=== PATIENT | male | born 1965 | race Caucasian/White ===

== ENCOUNTER 2016-04-24 10:04 | Emergency (ER) | payer BC ==
--- NOTE | 2016-04-24 11:34 | EDDOCDS ---
Physician Documentation [facility] Name: Kishore Mello Age: 51 yrs Sex: Male : 1965 Arrival Date: 04/24/2016 Time: 10:04 Bed TR7 Private MD: Génesis Medeiros Disposition: 04/24/16 11:10 Discharged to Home/Self Care. Impression: Gout - affecting left medial malleolus. - Condition is Stable. - Discharge Instructions: Gout. - Prescriptions for Naprosyn 500 mg Oral Tablet - take 1 tablet by ORAL route every 12 hours As needed take with food; 30 tablet. [place] 5- 325 mg Oral Tablet - take 1 tablet by ORAL route every 6 hours As needed MDD: 4 tabs; may cause drowsiness. do not take if working/driving/operating machinery; 15 tablet. Allopurinol 100 mg Oral Tablet - take 1 tablet by ORAL route once daily start when current symptoms resolve; 30 tablet. - Medication Reconciliation, Local Pharmacy Hours form. - Follow up: Emergency Department; When: As needed; Reason: Worsening of conditions. Follow up: Private Physician; When: 2 - 3 days; Reason: Wound/Symptom Recheck, Recheck today's complaints, Continuance of care. - Problem is new. - Symptoms are unchanged. Historical: - Allergies: no known allergies; - Home Meds: 1. gabapentin 300 mg Oral cap daily 2. spironolactone 25 mg Oral tab 1 tab once daily (Last dose: 04/22/2016) 3. valsartan 160 mg oral tab 1 tab nightly (Last dose: 04/22/2016) 4. verapamil 40 mg Oral tab nightly (Last dose: 04/24/2016) 5. hydrochlorothiazide 50 mg Oral tab 1 tab once daily (Last dose: 04/24/2016) - PMHx: Gout; Hypertension; Kidney stones; pericarditis; [place]; neuropathy; - PSHx: Knee surgery- Left; Knee surgery- Right; cardiac catheterization; Lithotripsy; - Social history: Smoking status: Patient states former smoker of tobacco. No barriers to communication noted, The patient speaks fluent Albanian. - Family history: Not pertinent. - : The pt / caregiver states he / she is not on anticoagulants. Home medication list is obtained from the patient. - Exposure Risk Screening:: None identified. Vital Signs: 04/24 10:06 BP 215 / 124 RA Sitting (auto/lg); Pulse 88; Resp 20 S; Temp 97.5(O); Pulse Ox 99% on elp R/A; Weight 147.42 kg / 325.01 lbs (R); Height 5 ft. 9 in. (175.26 cm) (R); Pain 9; 10:28 BP 178 / 110 LA Sitting (man/reg); jjr 11:22 BP 184 / 110 LA Sitting (man/lg); Pulse 84; Resp 18; Temp 97.2(O); Pulse Ox 98% on R/A; ct3 Pain 910; 10:06 Body Mass Index 47.99 (147.42 kg, 175.26 cm) elp MDM: 10:17 Recheck B/P ordered. dt4 10:23 Financial registration complete. lg 10:28 [facility] Payment Agreement was scanned into [employer] and attached to record. lg 10:36 US Lower Extremity R/O DVT Ordered. EDMS Signatures: Dispatcher [employer] EDMS Isamar Taylor, Reg Reg lg Kandis Rivas, RN RN Parvin Madrigal RN RN hs1 Beverley Rodriguez PA-C PA-C dt4 The chart was reviewed and I authenticate all verbal orders and agree with the evaluation and treatment provided.Attachments: 10:28 [facility] Payment Agreement lg MTDD
--- NOTE | 2016-04-24 11:34 | EDDOCDS ---
Nurse's Notes [facility] Name: Kishore Mello Age: 51 yrs Sex: Male : 1965 Arrival Date: 04/24/2016 Time: 10:04 Bed TR7 Private MD: Génesis Medeiros Diagnosis: Gout-affecting left medial malleolus Presentation: 04/24 10:09 Presenting complaint: Patient states: "gout flare up" pain to top of left foot began jjr this past Tuesday then went away until this morning. Adult Sepsis Screening: The patient does not have new or worsening altered mentation. Patient's respiratory rate is less than 22. Systolic blood pressure is greater than 100. Patient has a qSOFA score of 0- Negative Sepsis Screen. Suicide/Homicide risk assessment- the patient denies having any suicidal and/or homicidal ideations and does not present with any other emotional, behavioral or mental health complaints. Status: Patient is not a legal services manager or dependent. Transition of care: patient was not received from another setting of care. 10:09 Acuity: SHAMEKA Level 5 jjr 10:09 Method Of Arrival: Walkin/Carried/Asstd jjr Triage Assessment: 10:13 General: Appears in no apparent distress, obese, Behavior is appropriate for age. Pain: jjr Location: dorsum of left foot. HIV screening NA for this visit Offered previously. Musculoskeletal: Reports pain in dorsum of left foot. Historical: - Allergies: no known allergies; - Home Meds: 1. gabapentin 300 mg Oral cap daily 2. spironolactone 25 mg Oral tab 1 tab once daily (Last dose: 04/22/2016) 3. valsartan 160 mg oral tab 1 tab nightly (Last dose: 04/22/2016) 4. verapamil 40 mg Oral tab nightly (Last dose: 04/24/2016) 5. hydrochlorothiazide 50 mg Oral tab 1 tab once daily (Last dose: 04/24/2016) - PMHx: Gout; Hypertension; Kidney stones; pericarditis; [place]; neuropathy; - PSHx: Knee surgery- Left; Knee surgery- Right; cardiac catheterization; Lithotripsy; - Social history: Smoking status: Patient states former smoker of tobacco. No barriers to communication noted, The patient speaks fluent Cymro. - Family history: Not pertinent. - : The pt / caregiver states he / she is not on anticoagulants. Home medication list is obtained from the patient. - Exposure Risk Screening:: None identified. Screenin:39 Screening information is obtained from the patient. Fall risk: No risks identified. jjr Assistance ADL's: requires no assistance with activities of daily living. Abuse/DV Screen: The patient / caregiver reports he/she is: not in a situation that causes fear, pain or injury. Nutritional screening: No deficits noted. Advance Directives: There is no active DNR order. home support is adequate. Assessment: 10:38 General: Appears in no apparent distress, obese, well nourished, well groomed, Behavior jjr is appropriate for age. Derm: redness to top of left foot. Musculoskeletal: Capillary refill < 3 seconds in left toes. 11:32 Reassessment: Patient appears in no apparent distress at this time. Pain: Location: hs1 left foot Pain currently is 8 out of 10 on a pain scale. Vital Signs: 10:06 BP 215 / 124 RA Sitting (auto/lg); Pulse 88; Resp 20 S; Temp 97.5(O); Pulse Ox 99% on elp R/A; Weight 147.42 kg (R); Height 5 ft. 9 in. (175.26 cm) (R); Pain 9/10; 10:28 BP 178 / 110 LA Sitting (man/reg); jjr 11:22 BP 184 / 110 LA Sitting (man/lg); Pulse 84; Resp 18; Temp 97.2(O); Pulse Ox 98% on R/A; ct3 Pain 9/10; 10:06 Body Mass Index 47.99 (147.42 kg, 175.26 cm) [facility] Vitals: 10:06 Log In Time: April 24, 2016 at 10:04. [facility] ED Course: 10:05 Patient visited by Yue Lowry PCA. elp 10:05 Génesis Medeiros is Private Physician. elp 10:05 Patient moved to Waiting elp 10:08 Patient visited by Yue Lowry PCA. elp 10:08 Patient moved to Pre RCE elp 10:10 Triage Initiated jjr 10:13 Patient moved to Triage 1 jjr 10:16 Beverley [facility] dt4 10:16 Indigo Melissa MD is Attending Physician. dt4 10:16 Patient visited by Beverley Rodriguez PA-C. dt4 10:28 [facility] Payment Agreement was scanned into [employer] and attached to record. lg 10:37 Patient moved to TR1 hs1 10:39 The patient / caregiver is instructed regarding the plan of care and ED course. jjr 10:40 Patient moved to Ultrasound en 10:55 Patient moved to TR1 en 11:09 Patient visited by Stephanie Vasquez PCA. ct3 11:11 Patient moved to PR2 / 26 ct3 11:22 Patient visited by Stephanie Vasquez PCA. ct3 11:26 Patient moved to TR7 ct3 11:32 No IV's were initiated during this patient's visit. No procedures done that require hs1 assistance. Order Results: There are currently no results for this order. Outcome: 11:10 Discharge ordered by Provider. dt4 11:32 Discharge Assessment: Patient awake, alert and oriented x 3. No cognitive and/or hs1 functional deficits noted. Patient verbalized understanding of disposition instructions. patient administered narcotics - no. The following High Risk Discharge criteria are identified: None. Discharged to home ambulatory. Condition: stable. Discharge instructions given to patient, Instructed on discharge instructions, follow up and referral plans. medication usage, Demonstrated understanding of instructions, medications, Pt was receptive of discharge instructions/ teaching. Prescriptions given X 2. Ultrasound Study completed. Property sent home with patient. 11:33 Patient left the ED. hs1 Signatures: Isamar Taylor, Jan Reg lg Kandis Rivas, BEE RN Parvin Madrigal RN RN hs1 Stephanie Vasquez, SALES DIRECTOR SALES DIRECTOR ct3 Yue Lowry, SALES DIRECTOR SALES DIRECTOR elp Beverley Rodriguez PA-C PA-C dt4 [facility] mejias en MTDD
--- NOTE | 2016-04-26 08:30 | REP ---
Left lower extremity deep vein duplex ultrasound: The deep veins demonstrate normal compression, normal Doppler color flow and normal Doppler waveforms with respiration augmentation from the popliteal vein to the common femoral vein. Impression: Negative study. No deep vein thrombus. Signed by Daniel Harrison MD 04/24/2016 11:09 A
--- NOTE | 2016-04-26 12:34 | EDDOCDS ---
Nurse's Notes [facility] Name: Kishore Mello Age: 51 yrs Sex: Male : 1965 Arrival Date: 04/24/2016 Time: 10:04 Bed TR7 Private MD: Génesis Medeiros Diagnosis: Gout-affecting left medial malleolus Presentation: 04/24 10:09 Presenting complaint: Patient states: "gout flare up" pain to top of left foot began jjr this past Tuesday then went away until this morning. Adult Sepsis Screening: The patient does not have new or worsening altered mentation. Patient's respiratory rate is less than 22. Systolic blood pressure is greater than 100. Patient has a qSOFA score of 0- Negative Sepsis Screen. Suicide/Homicide risk assessment- the patient denies having any suicidal and/or homicidal ideations and does not present with any other emotional, behavioral or mental health complaints. Status: Patient is not a service desk specialist or dependent. Transition of care: patient was not received from another setting of care. 10:09 Acuity: SHAMEKA Level 5 jjr 10:09 Method Of Arrival: Walkin/Carried/Asstd jjr Triage Assessment: 10:13 General: Appears in no apparent distress, obese, Behavior is appropriate for age. Pain: jjr Location: dorsum of left foot. HIV screening NA for this visit Offered previously. Musculoskeletal: Reports pain in dorsum of left foot. Historical: - Allergies: no known allergies; - Home Meds: 1. gabapentin 300 mg Oral cap daily 2. spironolactone 25 mg Oral tab 1 tab once daily (Last dose: 04/22/2016) 3. valsartan 160 mg oral tab 1 tab nightly (Last dose: 04/22/2016) 4. verapamil 40 mg Oral tab nightly (Last dose: 04/24/2016) 5. hydrochlorothiazide 50 mg Oral tab 1 tab once daily (Last dose: 04/24/2016) - PMHx: Gout; Hypertension; Kidney stones; pericarditis; [place]; neuropathy; - PSHx: Knee surgery- Left; Knee surgery- Right; cardiac catheterization; Lithotripsy; - Social history: Smoking status: Patient states former smoker of tobacco. No barriers to communication noted, The patient speaks fluent Bahraini. - Family history: Not pertinent. - : The pt / caregiver states he / she is not on anticoagulants. Home medication list is obtained from the patient. - Exposure Risk Screening:: None identified. Screenin:39 Screening information is obtained from the patient. Fall risk: No risks identified. jjr Assistance ADL's: requires no assistance with activities of daily living. Abuse/DV Screen: The patient / caregiver reports he/she is: not in a situation that causes fear, pain or injury. Nutritional screening: No deficits noted. Advance Directives: There is no active DNR order. home support is adequate. Assessment: 10:38 General: Appears in no apparent distress, obese, well nourished, well groomed, Behavior jjr is appropriate for age. Derm: redness to top of left foot. Musculoskeletal: Capillary refill < 3 seconds in left toes. 11:32 Reassessment: Patient appears in no apparent distress at this time. Pain: Location: hs1 left foot Pain currently is 8 out of 10 on a pain scale. Vital Signs: 10:06 BP 215 / 124 RA Sitting (auto/lg); Pulse 88; Resp 20 S; Temp 97.5(O); Pulse Ox 99% on elp R/A; Weight 147.42 kg (R); Height 5 ft. 9 in. (175.26 cm) (R); Pain 9/10; 10:28 BP 178 / 110 LA Sitting (man/reg); jjr 11:22 BP 184 / 110 LA Sitting (man/lg); Pulse 84; Resp 18; Temp 97.2(O); Pulse Ox 98% on R/A; ct3 Pain 9/10; 10:06 Body Mass Index 47.99 (147.42 kg, 175.26 cm) [facility] Vitals: 10:06 Log In Time: April 24, 2016 at 10:04. [facility] ED Course: 10:05 Patient visited by Yue Lowry PCA. elp 10:05 Génesis Medeiros is Private Physician. elp 10:05 Patient moved to Waiting elp 10:08 Patient visited by Yue Lowry PCA. elp 10:08 Patient moved to Pre RCE elp 10:10 Triage Initiated jjr 10:13 Patient moved to Triage 1 jjr 10:16 Beverley Rodriguez PA-C is PHCP. dt4 10:16 Indigo Melissa MD is Attending Physician. dt4 10:16 Patient visited by Beverley Rodriguez PA-C. dt4 10:28 [facility] Payment Agreement was scanned into [employer] and attached to record. lg 10:37 Patient moved to TR1 hs1 10:39 The patient / caregiver is instructed regarding the plan of care and ED course. jjr 10:40 Patient moved to Ultrasound en 10:55 Patient moved to TR1 en 11:09 Patient visited by Stephanie Vasquez PCA. ct3 11:11 Patient moved to PR2 / 26 ct3 11:22 Patient visited by Stephanie Vasquez PCA. ct3 11:26 Patient moved to TR7 ct3 11:32 No IV's were initiated during this patient's visit. No procedures done that require hs1 assistance. 12:52 T-Sheet-- Draft Copy was scanned into [employer] and attached to record. [facility] 04/26 08:50 US Lower Extremity R/O DVT Returned. [facility] Order Results: Radiology Order: US Lower Extremity R/O DVT Test: US Lower Extremity R/O DVT REASON FOR EXAMINATION: left calf pain; Left lower extremity deep vein duplex ultrasound:; ; The deep veins demonstrate normal compression, normal Doppler color flow and; normal Doppler waveforms with respiration augmentation from the popliteal vein to; the common femoral vein.; ; Impression:; ; Negative study. No deep vein thrombus.; ; ; Signed by; Daniel Harrison MD 04/24/2016 11:09 A; Outcome: 04/24 11:10 Discharge ordered by Provider. dt4 11:32 Discharge Assessment: Patient awake, alert and oriented x 3. No cognitive and/or hs1 functional deficits noted. Patient verbalized understanding of disposition instructions. patient administered narcotics - no. The following High Risk Discharge criteria are identified: None. Discharged to home ambulatory. Condition: stable. Discharge instructions given to patient, Instructed on discharge instructions, follow up and referral plans. medication usage, Demonstrated understanding of instructions, medications, Pt was receptive of discharge instructions/ teaching. Prescriptions given X 2. Ultrasound Study completed. Property sent home with patient. 11:33 Patient left the ED. hs1 Signatures: [facility] Isamar Taylor, Kandis Chamberlain lg, RN RN jjr Parvin Taylor, RN RN hs1 Pedro, Stephanie, HYDROTHERAPIST HYDROTHERAPIST ct3 Yue Lowry, HYDROTHERAPIST HYDROTHERAPIST elp Beverley Rodriguez, JACOBO CENTENO dt4 Maria R Baca, Dena khanna Chart Complete MTDD
--- NOTE | 2016-04-26 12:34 | EDDOCDS ---
Physician Documentation [facility] Name: Kishore Mello Age: 51 yrs Sex: Male : 1965 Arrival Date: 04/24/2016 Time: 10:04 Bed TR7 Private MD: Génesis Medeiros Disposition: 04/24/16 11:10 Discharged to Home/Self Care. Impression: Gout - affecting left medial malleolus. - Condition is Stable. - Discharge Instructions: Gout. - Prescriptions for Naprosyn 500 mg Oral Tablet - take 1 tablet by ORAL route every 12 hours As needed take with food; 30 tablet. [place] 5- 325 mg Oral Tablet - take 1 tablet by ORAL route every 6 hours As needed MDD: 4 tabs; may cause drowsiness. do not take if working/driving/operating machinery; 15 tablet. Allopurinol 100 mg Oral Tablet - take 1 tablet by ORAL route once daily start when current symptoms resolve; 30 tablet. - Medication Reconciliation, Local Pharmacy Hours form. - Follow up: Emergency Department; When: As needed; Reason: Worsening of conditions. Follow up: Private Physician; When: 2 - 3 days; Reason: Wound/Symptom Recheck, Recheck today's complaints, Continuance of care. - Problem is new. - Symptoms are unchanged. Historical: - Allergies: no known allergies; - Home Meds: 1. gabapentin 300 mg Oral cap daily 2. spironolactone 25 mg Oral tab 1 tab once daily (Last dose: 04/22/2016) 3. valsartan 160 mg oral tab 1 tab nightly (Last dose: 04/22/2016) 4. verapamil 40 mg Oral tab nightly (Last dose: 04/24/2016) 5. hydrochlorothiazide 50 mg Oral tab 1 tab once daily (Last dose: 04/24/2016) - PMHx: Gout; Hypertension; Kidney stones; pericarditis; [place]; neuropathy; - PSHx: Knee surgery- Left; Knee surgery- Right; cardiac catheterization; Lithotripsy; - Social history: Smoking status: Patient states former smoker of tobacco. No barriers to communication noted, The patient speaks fluent Tajik. - Family history: Not pertinent. - : The pt / caregiver states he / she is not on anticoagulants. Home medication list is obtained from the patient. - Exposure Risk Screening:: None identified. Vital Signs: 04/24 10:06 BP 215 / 124 RA Sitting (auto/lg); Pulse 88; Resp 20 S; Temp 97.5(O); Pulse Ox 99% on elp R/A; Weight 147.42 kg / 325.01 lbs (R); Height 5 ft. 9 in. (175.26 cm) (R); Pain 910; 10:28 BP 178 / 110 LA Sitting (man/reg); jjr 11:22 BP 184 / 110 LA Sitting (man/lg); Pulse 84; Resp 18; Temp 97.2(O); Pulse Ox 98% on R/A; ct3 Pain 9/10; 10:06 Body Mass Index 47.99 (147.42 kg, 175.26 cm) elp MDM: 10:17 Recheck B/P ordered. dt4 10:23 Financial registration complete. lg 10:28 [facility] Payment Agreement was scanned into [employer] and attached to record. lg 10:36 Lower Extremity R/O DVT Ordered. EDMS 12:52 T-Sheet-- Draft Copy was scanned into [employer] and attached to record. se Signatures: Dispatcher [employer] EDMS Isamar Taylor, Reg Reg lg Kandis Rivas RN Parvin Seals RN RN hs1 Beverley Rodriguez PA-C PA-C dt4 Dena Stoll The chart was reviewed and I authenticate all verbal orders and agree with the evaluation and treatment provided.Attachments: 10:28 [facility] Payment Agreement lg 12:52 T-Sheet-- Draft Copy se Chart Complete MTDD
--- NOTE | 2016-04-26 12:34 | EDDOCDS ---
Physician Documentation [facility] Name: Kishore Mello Age: 51 yrs Sex: Male : 1965 Arrival Date: 04/24/2016 Time: 10:04 Bed TR7 Private MD: Génesis Medeiros Disposition: 04/24/16 11:10 Discharged to Home/Self Care. Impression: Gout - affecting left medial malleolus. - Condition is Stable. - Discharge Instructions: Gout. - Prescriptions for Naprosyn 500 mg Oral Tablet - take 1 tablet by ORAL route every 12 hours As needed take with food; 30 tablet. [place] 5- 325 mg Oral Tablet - take 1 tablet by ORAL route every 6 hours As needed MDD: 4 tabs; may cause drowsiness. do not take if working/driving/operating machinery; 15 tablet. Allopurinol 100 mg Oral Tablet - take 1 tablet by ORAL route once daily start when current symptoms resolve; 30 tablet. - Medication Reconciliation, Local Pharmacy Hours form. - Follow up: Emergency Department; When: As needed; Reason: Worsening of conditions. Follow up: Private Physician; When: 2 - 3 days; Reason: Wound/Symptom Recheck, Recheck today's complaints, Continuance of care. - Problem is new. - Symptoms are unchanged. Historical: - Allergies: no known allergies; - Home Meds: 1. gabapentin 300 mg Oral cap daily 2. spironolactone 25 mg Oral tab 1 tab once daily (Last dose: 04/22/2016) 3. valsartan 160 mg oral tab 1 tab nightly (Last dose: 04/22/2016) 4. verapamil 40 mg Oral tab nightly (Last dose: 04/24/2016) 5. hydrochlorothiazide 50 mg Oral tab 1 tab once daily (Last dose: 04/24/2016) - PMHx: Gout; Hypertension; Kidney stones; pericarditis; [place]; neuropathy; - PSHx: Knee surgery- Left; Knee surgery- Right; cardiac catheterization; Lithotripsy; - Social history: Smoking status: Patient states former smoker of tobacco. No barriers to communication noted, The patient speaks fluent Vietnamese. - Family history: Not pertinent. - : The pt / caregiver states he / she is not on anticoagulants. Home medication list is obtained from the patient. - Exposure Risk Screening:: None identified. Vital Signs: 04/24 10:06 BP 215 / 124 RA Sitting (auto/lg); Pulse 88; Resp 20 S; Temp 97.5(O); Pulse Ox 99% on elp R/A; Weight 147.42 kg / 325.01 lbs (R); Height 5 ft. 9 in. (175.26 cm) (R); Pain 910; 10:28 BP 178 / 110 LA Sitting (man/reg); jjr 11:22 BP 184 / 110 LA Sitting (man/lg); Pulse 84; Resp 18; Temp 97.2(O); Pulse Ox 98% on R/A; ct3 Pain 9/10; 10:06 Body Mass Index 47.99 (147.42 kg, 175.26 cm) elp MDM: 10:17 Recheck B/P ordered. dt4 10:23 Financial registration complete. lg 10:28 [facility] Payment Agreement was scanned into [email or web address] and attached to record. lg 10:36 Lower Extremity R/O DVT Ordered. EDMS 12:52 T-Sheet-- Draft Copy was scanned into [email or web address] and attached to record. se Signatures: Dispatcher [employer] EDMS Isamar Taylor, Reg Reg lg Kandis Rivas RN Parvin Seals RN RN hs1 Beverley Rodriguez PA-C PA-C dt4 Dena Stoll The chart was reviewed and I authenticate all verbal orders and agree with the evaluation and treatment provided.Attachments: 10:28 [facility] Payment Agreement lg 12:52 T-Sheet-- Draft Copy se Chart Complete MTDD
== END 2016-04-24 11:33 | disposition home or self-care (01) ==
LOC: M ED 10:04
DX: M10.072 Idiopathic gout, left ankle and foot (principal); I10 Essential (primary) hypertension; I25.2 Old myocardial infarction; G62.9 Polyneuropathy, unspecified; Z87.442 Personal history of urinary calculi; Z87.891 Personal history of nicotine dependence; Z79.899 Other long term (current) drug therapy

== ENCOUNTER → 2016-10-20 | Outpatient (REF) | payer BC ==
[2016-10-20 16:03] LABS: BASO % 0.6 % (0.0-1.0); EOS # 0.2 K/mm3 (0.0-0.50); EOS % 3.5 % (0.0-3.0); LARGE UNSTAINED CELL # 0.1 K/mm3 (0.0-0.4); LARGE UNSTAINED CELL % 1.2 % (0.0-4.0); LYMPH # 1.4 K/mm3 (1.5-4.5); LYMPH % 19.8 % (24.0-44.0); MEAN CORPUSCULAR HGB CONC 33.5 g/dl (32.0-36.5); MEAN CORPUSCULAR VOLUME 86.7 fl (80.0-96.0); MONO # 0.4 K/mm3 (0.0-0.8); MONO % 6.2 % (0.0-5.0); NEUTROPHILS # 4.7 K/mm3 (1.8-7.7); NEUTROPHILS % 68.8 % (36.0-66.0); PLATELET COUNT, AUTOMATED 191 k/mm3 (150-450); RED CELL DISTRIBUTION WIDTH 14.3 % (11.5-14.5); WHITE BLOOD COUNT 6.8 K/mm3 (4.0-10.0)
[2016-10-20 16:14] LABS: ALBUMIN 3.7 GM/DL (3.2-5.2); ALBUMIN/GLOBULIN RATIO 1.03 (1.00-1.93); ALKALINE PHOSPHATASE 74 U/L (45-117); ALT/SGPT 40 U/L (12-78); ANION GAP 9 MEQ/L (8-16); AST/SGOT 18 U/L (15-37); BILIRUBIN,TOTAL 0.5 MG/DL (0.2-1.0); BLOOD UREA NITROGEN 25 MG/DL (7-18); CALCIUM LEVEL 9.2 MG/DL (8.5-10.1); CARBON DIOXIDE LEVEL 28 MEQ/L (21-32); CHLORIDE LEVEL 97 MEQ/L (98-107); CHOLESTEROL LEVEL 261 MG/DL (<200); CREATININE FOR GFR 1.16 MG/DL (0.70-1.30); GLOMERULAR FILTRATION RATE > 60.0 (>56); GLUCOSE, FASTING 143 MG/DL (70-105); POTASSIUM SERUM 4.3 MEQ/L (3.5-5.1); SODIUM LEVEL 134 MEQ/L (136-145); TOTAL PROTEIN 7.3 GM/DL (6.4-8.2); TRIGLYCERIDES LEVEL 83 MG/DL (<150)
== END ==
LOC: M SFHCSACK 09:08
PROVIDERS: ATTEND Physician Assistant
DX: I10 Essential (primary) hypertension (principal); Z11.59 Encounter for screening for other viral diseases; Z11.4 Encounter for screening for human immunodeficiency virus [HIV]; Z13.220 Encounter for screening for lipoid disorders

== ENCOUNTER → 2016-12-09 | Outpatient (CLI) | payer BC ==
[2016-12-09 13:45] LABS: ALBUMIN 3.7 GM/DL (3.2-5.2); ALBUMIN/GLOBULIN RATIO 1.06 (1.00-1.93); ALKALINE PHOSPHATASE 65 U/L (45-117); ALT/SGPT 37 U/L (12-78); ANION GAP 9 MEQ/L (8-16); AST/SGOT 17 U/L (15-37); BILIRUBIN,TOTAL 0.5 MG/DL (0.2-1.0); BLOOD UREA NITROGEN 28 MG/DL (7-18); CALCIUM LEVEL 9.4 MG/DL (8.5-10.1); CARBON DIOXIDE LEVEL 29 MEQ/L (21-32); CHLORIDE LEVEL 102 MEQ/L (98-107); CREATININE FOR GFR 1.33 MG/DL (0.70-1.30); FREE T4 1.11 NG/DL (0.76-1.46); GLOMERULAR FILTRATION RATE > 60.0 (>56); GLUCOSE, FASTING 128 MG/DL (70-105); POTASSIUM SERUM 4.5 MEQ/L (3.5-5.1); SODIUM LEVEL 140 MEQ/L (136-145); TOTAL PROTEIN 7.2 GM/DL (6.4-8.2)
== END ==
LOC: M WUC 09:22
PROVIDERS: ATTEND Physician Assistant
DX: R73.09 Other abnormal glucose (principal); E66.9 Obesity, unspecified

== ENCOUNTER 2017-09-22 08:20 | Inpatient (IN) | payer BC ==
[2017-09-22 08:49] LABS: BASO % 0.5 % (0.0-1.0); EOS # 0.2 10^3/uL (0.0-0.50); HEMOGLOBIN 15.1 g/dl (13.5-17.5); IMMATURE GRANULOCYTE % 0.7 % (0-3.0); LYMPH # 1.3 10^3/uL (1.5-4.5); LYMPH % 17.8 % (24.0-44.0); MEAN CORPUSCULAR HEMOGLOBIN 28.3 pg (27.0-33.0); MEAN CORPUSCULAR HGB CONC 33.6 g/dl (32.0-36.5); MEAN CORPUSCULAR VOLUME 84.4 fl (80.0-96.0); MONO # 0.5 10^3/uL (0.0-0.8); MONO % 6.6 % (0.0-5.0); NEUTROPHILS # 5.3 10^3/uL (1.8-7.7); NEUTROPHILS % 71.4 % (36.0-66.0); PLATELET COUNT, AUTOMATED 194 10^3/uL (150-450); RED BLOOD COUNT 5.33 10^6/uL (4.30-6.10); WHITE BLOOD COUNT 7.4 10^3/uL (4.0-10.0)
[2017-09-22] MEDS: ASPIRIN 81 MG CHEW TABLET PO (08:53)
[2017-09-22] MEDS: NITROGLYCERIN 0.4 MG SUBL TABLET SL ×3 (08:54→09:09)
[2017-09-22 09:03] LABS: INR 0.92; PARTIAL THROMBOPLASTIN TIME 26.9 SECONDS (25.4-37.6); PROTHROMBIN TIME 12.5 SECONDS (12.1-14.4)
[2017-09-22 09:13] LABS: ALBUMIN 3.4 GM/DL (3.2-5.2); ALBUMIN/GLOBULIN RATIO 0.83 (1.00-1.93); ALKALINE PHOSPHATASE 73 U/L (45-117); ALT/SGPT 43 U/L (12-78); ANION GAP 5 MEQ/L (8-16); AST/SGOT 23 U/L (7-37); BILIRUBIN,DIRECT 0.1 MG/DL (0.0-0.2); BILIRUBIN,TOTAL 0.3 MG/DL (0.2-1.0); BLOOD UREA NITROGEN 26 MG/DL (7-18); CALCIUM LEVEL 8.6 MG/DL (8.5-10.1); CARBON DIOXIDE LEVEL 31 MEQ/L (21-32); CHLORIDE LEVEL 106 MEQ/L (98-107); CPK CREATINE PHOSPHOKINASE 90 U/L (39-308); CREATININE FOR GFR 1.18 MG/DL (0.70-1.30); FREE T4 1.08 NG/DL (0.76-1.46); GLOMERULAR FILTRATION RATE > 60.0 (>56); GLUCOSE, FASTING 164 MG/DL (70-100); POTASSIUM SERUM 4.6 MEQ/L (3.5-5.1); SODIUM LEVEL 142 MEQ/L (136-145); TOTAL PROTEIN 7.5 GM/DL (6.4-8.2); TROPONIN I 0.05 NG/ML (< 0.10)
[2017-09-22 09:19] LABS: CK-MB VALUE MASS 2.9 NG/ML (<3.6); MB/CK RELATIVE INDEX 3.22 (< OR =4); NT-PRO BNP 403 PG/ML (<125)
[2017-09-22] MEDS: LABETALOL HCL 100 MG/20 ML VIAL IV (09:39)
[2017-09-22] MEDS: hydrALAZINE INJ 20 MG/ML VIAL IV (11:04)
[2017-09-22] MEDS: METOPROLOL SUCC *XL* 25MG TAB (TopROL *XL*) PO (11:04)
[2017-09-22] MEDS ORDERED: SLF 3 ML SYR IV (13:15)
[2017-09-22 13:22] LABS: CK-MB VALUE MASS 2.9 NG/ML (<3.6); CPK CREATINE PHOSPHOKINASE 71 U/L (39-308); MB/CK RELATIVE INDEX 4.08 (< OR =4); TROPONIN I 0.04 NG/ML (< 0.10)
[2017-09-22] MEDS: FUROSEMIDE 20 MG TAB PO (13:35)
[2017-09-22] MEDS: SLF 3 ML SYR IV ×2 (13:38→22:00)
[2017-09-22] MEDS ORDERED: chlordiazePOXIDE 25 MG CAP PO (15:00)
[2017-09-22] MEDS: VERAPAMIL 120 MG SR TAB PO (15:08)
[2017-09-22] MEDS: VALSARTAN 80 MG TAB (DIOVAN) PO (15:09)
[2017-09-22] MEDS: SPIRONOLACTONE 25 MG TAB PO (15:09)
[2017-09-22] MEDS: HEPARIN SOD (PORCINE) 5000 UNITS/ML VIAL SQ ×2 (15:10→22:00)
[2017-09-22] MEDS: CHLORTHALIDONE 25 MG TAB PO (16:59)
[2017-09-22] MEDS: ACETAMINOPHEN TAB 650MG DOSE (2X325MG) PO (18:40)
[2017-09-22 19:22] LABS: CK-MB VALUE MASS 2.7 NG/ML (<3.6); CPK CREATINE PHOSPHOKINASE 91 U/L (39-308); MB/CK RELATIVE INDEX 2.96 (< OR =4); TROPONIN I 0.04 NG/ML (< 0.10)
[2017-09-23] MEDS: SLF 3 ML SYR IV (06:00)
[2017-09-23] MEDS: HEPARIN SOD (PORCINE) 5000 UNITS/ML VIAL SQ (06:00)
[2017-09-23 06:39] LABS: HEMATOCRIT 46.3 % (42.0-52.0); HEMOGLOBIN 15.2 g/dl (13.5-17.5); MEAN CORPUSCULAR HEMOGLOBIN 27.8 pg (27.0-33.0); MEAN CORPUSCULAR HGB CONC 32.8 g/dl (32.0-36.5); MEAN CORPUSCULAR VOLUME 84.6 fl (80.0-96.0); PLATELET COUNT, AUTOMATED 200 10^3/uL (150-450); RED BLOOD COUNT 5.47 10^6/uL (4.30-6.10); RED CELL DISTRIBUTION WIDTH 14.4 % (11.5-14.5); WHITE BLOOD COUNT 7.4 10^3/uL (4.0-10.0)
[2017-09-23 06:59] LABS: ANION GAP 9 MEQ/L (8-16); BLOOD UREA NITROGEN 20 MG/DL (7-18); CARBON DIOXIDE LEVEL 28 MEQ/L (21-32); CHLORIDE LEVEL 103 MEQ/L (98-107); CREATININE FOR GFR 1.16 MG/DL (0.70-1.30); GLOMERULAR FILTRATION RATE > 60.0 (>56); GLUCOSE, FASTING 156 MG/DL (70-100); POTASSIUM SERUM 4.2 MEQ/L (3.5-5.1); SODIUM LEVEL 140 MEQ/L (136-145)
[2017-09-23] MEDS: FUROSEMIDE 20 MG TAB PO (08:50)
== END 2017-09-23 13:50 | disposition home or self-care (01) | DRG 199 ==
LOC: M ED 08:20 → M ED INP 11:16 → M PCU 13:05
DX: I16.0 Hypertensive urgency (principal); Z68.43 Body mass index [BMI] 50.0-59.9, adult; E66.01 Morbid (severe) obesity due to excess calories; R07.9 Chest pain, unspecified; G47.33 Obstructive sleep apnea (adult) (pediatric); F17.210 Nicotine dependence, cigarettes, uncomplicated; Z79.899 Other long term (current) drug therapy; Z88.5 Allergy status to narcotic agent; I10 Essential (primary) hypertension

== ENCOUNTER 2017-10-18 01:55 | Emergency (ER) | payer BC ==
[2017-10-18] MEDS: ONDANSETRON 4 MG ORAL DISINTEGRATING TAB (Q0162 PER 1MG) PO (02:30)
[2017-10-18 02:51] LABS: KETONE, URINE AUTO RFX NEGATIVE (NEGATIVE); LEUKOCYTE ESTERASE UR AUTO RFX NEGATIVE (NEGATIVE); MUCUS, URINE RFX SMALL (NEGATIVE); NITRITE, URINE AUTO RFX NEGATIVE (NEGATIVE); RBC, URINE AUTO RFX 72 /HPF (0-3); SPECIFIC GRAVITY UR AUTO RFX 1.018 (1.002-1.035); SQUAM EPITHELIAL CELL UR AURFX 0 /HPF (0-6); WBC, URINE AUTO RFX 2 /HPF (0-3)
[2017-10-18] MEDS: NORCO 5/325MG TABLET (BULK FOR ED) PO (05:21)
== END 2017-10-18 05:22 | disposition home or self-care (01) ==
LOC: M ED 01:55
DX: N20.1 Calculus of ureter (principal); I10 Essential (primary) hypertension; E66.9 Obesity, unspecified; Z87.442 Personal history of urinary calculi; Z79.899 Other long term (current) drug therapy; Z88.5 Allergy status to narcotic agent
CPT/HCPCS: Q0162

== ENCOUNTER → 2018-01-11 | Outpatient (REF) | payer BC ==
[2018-01-11 15:00] LABS: ESTIMATED AVERAGE GLUCOSE 192 MG/DL (60-110); HEMOGLOBIN A1c 8.3 %
[2018-01-11 15:01] LABS: BASO % 0.4 % (0.0-1.0); EOS # 0.2 10^3/uL (0.0-0.50); EOS % 2.1 % (0.0-3.0); HEMATOCRIT 47.6 % (42.0-52.0); HEMOGLOBIN 15.8 g/dl (13.5-17.5); IMMATURE GRANULOCYTE % 0.2 % (0-3.0); LYMPH # 1.6 10^3/uL (1.5-4.5); LYMPH % 19.4 % (24.0-44.0); MEAN CORPUSCULAR HEMOGLOBIN 27.8 pg (27.0-33.0); MEAN CORPUSCULAR HGB CONC 33.2 g/dl (32.0-36.5); MEAN CORPUSCULAR VOLUME 83.8 fl (80.0-96.0); MONO # 0.6 10^3/uL (0.0-0.8); MONO % 7.1 % (0.0-5.0); NEUTROPHILS # 5.7 10^3/uL (1.8-7.7); NEUTROPHILS % 70.8 % (36.0-66.0); PLATELET COUNT, AUTOMATED 233 10^3/uL (150-450); RED BLOOD COUNT 5.68 10^6/uL (4.30-6.10); RED CELL DISTRIBUTION WIDTH 14.5 % (11.5-14.5)
[2018-01-11 15:28] LABS: MAU/CREAT RATIO 28.8 MCG/MG (0.0-30.0)
[2018-01-11 16:22] LABS: ALBUMIN 3.4 GM/DL (3.2-5.2); ALBUMIN/GLOBULIN RATIO 0.92 (1.00-1.93); ALKALINE PHOSPHATASE 84 U/L (45-117); ALT/SGPT 39 U/L (12-78); ANION GAP 7 MEQ/L (8-16); AST/SGOT 19 U/L (7-37); BILIRUBIN,TOTAL 0.4 MG/DL (0.2-1.0); BLOOD UREA NITROGEN 32 MG/DL (7-18); CALCIUM LEVEL 8.8 MG/DL (8.5-10.1); CARBON DIOXIDE LEVEL 30 MEQ/L (21-32); CHLORIDE LEVEL 101 MEQ/L (98-107); CHOLESTEROL LEVEL 242 MG/DL (<200); CHOLESTEROL RISK RATIO 5.041 (<5); CREATININE FOR GFR 1.26 MG/DL (0.70-1.30); FREE T4 1.07 NG/DL (0.76-1.46); GLOMERULAR FILTRATION RATE > 60.0 (>56); GLUCOSE, FASTING 198 MG/DL (70-100); HDL CHOLESTEROL 48 MG/DL (>40); LDL CHOLESTEROL 176 MG/DL (<100); NON-HDL-C 194 MG/DL; POTASSIUM SERUM 5.2 MEQ/L (3.5-5.1); SODIUM LEVEL 138 MEQ/L (136-145); THYROID STIMULATING HORMONE 0.884 uIU/ML (0.358-3.740); TOTAL PROTEIN 7.1 GM/DL (6.4-8.2); TRIGLYCERIDES LEVEL 89 MG/DL (<150)
[2018-01-11 16:23] LABS: TOTAL 25(OH) VITAMIN D 19.6 NG/ML (30.0-100.0)
== END ==
LOC: M SFHCSACK 09:04
DX: R73.09 Other abnormal glucose (principal); I10 Essential (primary) hypertension; F41.9 Anxiety disorder, unspecified; E55.9 Vitamin D deficiency, unspecified
CPT/HCPCS: 84443

== ENCOUNTER → 2018-08-25 | Outpatient (REF) | payer OTHER ==
[~2018-08-25] MED LIST: CHLO125TA PO; CHLO50TA PO; FLOM0.4C39 PO; FURO20TA2 PO; HYDR-3715 PO; SPIR-10 PO; VALS1TAB68 PO; VERA120T4 PO; ZOFR4TAB14 PO
[2018-08-25 16:03] LABS: BASO % 0.5 % (0.0-1.0); EOS # 0.1 10^3/uL (0.0-0.50); EOS % 1.2 % (0.0-3.0); HEMATOCRIT 47.5 % (42.0-52.0); HEMOGLOBIN 15.3 g/dl (13.5-17.5); LYMPH # 1.4 10^3/uL (1.5-4.5); LYMPH % 21.2 % (24.0-44.0); MEAN CORPUSCULAR HGB CONC 32.2 g/dl (32.0-36.5); MEAN CORPUSCULAR VOLUME 83.9 fl (80.0-96.0); MONO # 0.5 10^3/uL (0.0-0.8); NEUTROPHILS # 4.6 10^3/uL (1.8-7.7); NEUTROPHILS % 69.5 % (36.0-66.0); PLATELET COUNT, AUTOMATED 205 10^3/uL (150-450); RED BLOOD COUNT 5.66 10^6/uL (4.30-6.10); WHITE BLOOD COUNT 6.6 10^3/uL (4.0-10.0)
[2018-08-25 16:16] LABS: HEMOGLOBIN A1c 7.4 %
[2018-08-25 17:43] LABS: ALBUMIN 3.7 GM/DL (3.2-5.2); ALT/SGPT 40 U/L (12-78); BILIRUBIN,TOTAL 0.4 MG/DL (0.2-1.0); BLOOD UREA NITROGEN 30 MG/DL (7-18); CALCIUM LEVEL 9.5 MG/DL (8.5-10.1); CARBON DIOXIDE LEVEL 26 MEQ/L (21-32); CHLORIDE LEVEL 102 MEQ/L (98-107); CREATININE FOR GFR 1.18 MG/DL (0.70-1.30); GLOMERULAR FILTRATION RATE > 60.0 (>56); GLUCOSE, FASTING 157 MG/DL (70-100); POTASSIUM SERUM 4.9 MEQ/L (3.5-5.1); SODIUM LEVEL 136 MEQ/L (136-145); TOTAL 25(OH) VITAMIN D 30.1 NG/ML (30.0-100.0); TOTAL PROTEIN 7.4 GM/DL (6.4-8.2)
== END ==
LOC: M SFHCSACK 10:24
PROVIDERS: ATTEND Physician Assistant
DX: I10 Essential (primary) hypertension (principal); E11.9 Type 2 diabetes mellitus without complications; E55.9 Vitamin D deficiency, unspecified

== ENCOUNTER 2018-10-16 15:28 | Emergency (ER) | payer OTHER ==
[~2018-10-16] VITALS: Ht 175.3 cm; Wt 146.2 kg
[2018-10-16] MEDS ORDERED: VITA500045 (15:38)
[2018-10-16] MEDS ORDERED: ALLO100T (15:38)
[2018-10-16] MEDS ORDERED: METO1TAB87 (15:38)
[2018-10-16] MEDS ORDERED: JANU100T (15:38)
[2018-10-16] MEDS ORDERED: CHLO50TA (15:38)
[2018-10-16] MEDS ORDERED: SIMV20TA2 (15:38)
--- NOTE | 2018-10-16 16:12 | REP ---
Left knee five views: There are no comparisons. There is tricompartment osteoarthritis. There is a suprapatellar effusion. There is no fracture or dislocation. Mineralization is normal. There are no calcifications or foreign bodies. Impression: Tricompartment osteoarthritis and joint effusion Electronically Signed by Daniel Harrison MD 10/16/2018 04:03 P
[2018-10-16] MEDS ORDERED: IBUPROFEN 600 MG TAB PO ONE (20:00)
[2018-10-16] MEDS ORDERED: LIDOCAINE 5% (LIDODERM) PATCH TD ONE (20:00)
[2018-10-16] MEDS ORDERED: ROBA500T PO (20:44)
[2018-10-16 20:52] VITALS: BP 145/78
--- NOTE | 2018-10-17 03:05 | REP ---
Clinical: Trauma. Fall with acute tenderness . Technique: AP, lateral, bilateral oblique, and coned-down views. Findings: Alignment and lordosis is maintained. The vertebral bodies including transverse process and spinous processes are intact and there is no evidence for acute fracture / compression injury or subluxation. Mild/moderate multilevel degenerative changes include endplate sclerosis, marginal early osteophyte formation, and hypertrophic facet changes as well as minimal disc space narrowing. Impression: Mild/moderate age-related degenerative changes. No acute fracture / compression injury or subluxation. Electronically Signed by Elder Copeland MD 10/17/2018 02:56 A
[2018-10-17] MEDS ORDERED: **NOTE PATIENT COMMENT** MISC XX SCH (10:00)
== END 2018-10-16 20:52 | disposition home or self-care (01) ==
LOC: M ED 15:28
DX: M25.462 Effusion, left knee (principal); S39.012A Strain of muscle, fascia and tendon of lower back, initial encounter; X50.9XXA Other and unspecified overexertion or strenuous movements or postures, initial encounter; Y92.89 Other specified places as the place of occurrence of the external cause; Y99.0 Civilian activity done for income or pay; Z79.899 Other long term (current) drug therapy; Z88.5 Allergy status to narcotic agent

== ENCOUNTER 2018-10-20 09:53 | Emergency (ER) | payer OTHER ==
[~2018-10-20] VITALS: Ht 172.7 cm; Wt 148.0 kg
[~2018-10-20 09:53] MED LIST changes: +ALLO100T; +CHLO50TA; +JANU100T; +METO1TAB87; +ROBA500T PO; +SIMV20TA2; +VITA500045
[2018-10-20] MEDS ORDERED: NAPR-837 PO (10:46)
[2018-10-20 10:48] VITALS: BP 136/75
== END 2018-10-20 11:10 | disposition home or self-care (01) ==
LOC: M ED 09:53
DX: S83.92XA Sprain of unspecified site of left knee, initial encounter (principal); M25.462 Effusion, left knee; W19.XXXA Unspecified fall, initial encounter; Y92.89 Other specified places as the place of occurrence of the external cause; Y93.9 Activity, unspecified; Y99.0 Civilian activity done for income or pay; I10 Essential (primary) hypertension; E78.00 Pure hypercholesterolemia, unspecified; Z79.899 Other long term (current) drug therapy; Z88.5 Allergy status to narcotic agent

== ENCOUNTER → 2018-10-23 | Outpatient (REF) | payer OTHER ==
[~2018-10-23] MED LIST changes: +ACET1TAB55 PO; +ALLO100T PO; +JANU100T PO; +LOSA100T50; +LOSA100T50 PO; +METF-791 PO; +METH1TAB40; +METH1TAB40 PO; +METO1TAB7; +METO1TAB7 PO; +NAPR-837 PO; +NAPR-885 PO; -SIMV20TA2; +SIMV20TA22; +SIMV20TA22 PO; +SULF1TAB93 PO; +VITA50005 PO
[2018-10-23 15:43] LABS: ALT/SGPT 28 U/L (12-78); BLOOD UREA NITROGEN 19 MG/DL (7-18); CALCIUM LEVEL 9.4 MG/DL (8.5-10.1); CARBON DIOXIDE LEVEL 30 MEQ/L (21-32); CHLORIDE LEVEL 105 MEQ/L (98-107); CHOLESTEROL LEVEL 227 MG/DL (<200); CHOLESTEROL RISK RATIO 3.721 (<5); CPK CREATINE PHOSPHOKINASE 75 U/L (39-308); CREATININE FOR GFR 1.11 MG/DL (0.70-1.30); GLOMERULAR FILTRATION RATE > 60.0 (>56); GLUCOSE, FASTING 167 MG/DL (70-100); HDL CHOLESTEROL 61 MG/DL (>40); LDL CHOLESTEROL 147 MG/DL (<100); NON-HDL-C 166 MG/DL; POTASSIUM SERUM 4.6 MEQ/L (3.5-5.1); SODIUM LEVEL 138 MEQ/L (136-145); TRIGLYCERIDES LEVEL 93 MG/DL (<150)
== END ==
LOC: M LAB REF 14:27
PROVIDERS: ATTEND Physician Assistant Medical
DX: E78.49 Other hyperlipidemia (principal); I25.10 Atherosclerotic heart disease of native coronary artery without angina pectoris; I10 Essential (primary) hypertension

== ENCOUNTER 2019-04-03 16:39 | Inpatient (IN) | payer OTHER ==
[~2019-04-03] VITALS: Ht 175.3 cm; Wt 151.0 kg
[~2019-04-03 16:39] MED LIST changes: -ACET1TAB55 PO; -ALLO100T PO; -JANU100T PO; -LOSA100T50; -LOSA100T50 PO; -METF-791 PO; -METH1TAB40; -METH1TAB40 PO; -METO1TAB7; -METO1TAB7 PO; -NAPR-885 PO; -SIMV20TA22 PO; -SULF1TAB93 PO; -VITA50005 PO
[2019-04-03] MEDS ORDERED: LOSA100T50 (16:48)
[2019-04-03] MEDS ORDERED: METO1TAB7 (16:48)
[2019-04-03] MEDS ORDERED: METH1TAB40 (16:48)
--- NOTE | 2019-04-03 18:45 | REPVR ---
PROCEDURE INFORMATION: Exam: US Duplex Left Lower Extremity Veins, Limited Exam date and time: 04/03/2019 6:27 PM Age: 53 years old Clinical indication: Pain; Leg, lower; Left; Additional info: Left leg swelling/pain TECHNIQUE: Imaging protocol: Real-time Duplex ultrasound of the Left Lower Extremity with 2-D sun scale, color Doppler flow and spectral waveform analysis with image documentation. Limited exam focused on the left lower extremity veins. COMPARISON: US Duplex, Ext,LOWER veins,unilat 04/24/2016 10:50 AM FINDINGS: Left deep veins: Unremarkable. The common femoral, femoral and popliteal veins are patent without thrombus. Normal compressibility, augmentation response and Doppler waveforms. Left superficial veins: Unremarkable. Saphenofemoral junction is patent without thrombus. Soft tissues: Unremarkable. IMPRESSION: No sonographic evidence of deep vein thrombosis. Electronically signed by: Juan Carlos Zuñiga On 04/03/2019 18:45:41 PM
--- NOTE | 2019-04-03 19:07 | REP ---
Left knee series: Four views. History: Left anterior knee pain. Findings: A four views of the left knee demonstrate medial and patellofemoral osteoarthritic spurring. Lateral compartment spurring is also noted. There is fullness in the suprapatellar bursa region on lateral film consistent with joint effusion. No sunrise view is included. The findings are unchanged from the October 16, 2018 study. Impression: Three compartment osteoarthritis prior. Probable joint effusion. No fracture seen. [place] view could not be obtained. Electronically Signed by Lazaro Johnson MD 04/03/2019 06:59 P
[2019-04-03 19:15] LABS: BASO % 0.4 % (0.0-1.0); EOS # 0.3 10^3/uL (0.0-0.5); EOS % 2.3 % (0.0-3.0); HEMATOCRIT 50.7 % (42.0-52.0); HEMOGLOBIN 15.7 g/dl (13.5-17.5); LYMPH # 2.1 10^3/uL (1.5-5.0); LYMPH % 19.3 % (24.0-44.0); MEAN CORPUSCULAR HEMOGLOBIN 27.3 pg (27.0-33.0); MEAN CORPUSCULAR VOLUME 88.2 fl (80.0-96.0); MONO # 0.8 10^3/uL (0.0-0.8); MONO % 7.5 % (0.0-5.0); NEUTROPHILS # 7.8 10^3/uL (1.5-8.5); PLATELET COUNT, AUTOMATED 229 10^3/uL (150-450); RED BLOOD COUNT 5.75 10^6/uL (4.30-6.10); WHITE BLOOD COUNT 11.1 10^3/uL (4.0-10.0)
[2019-04-03 19:23] LABS: C REACTIVE PROTEIN QUANTITATIV 4.69 MG/DL (0.00-0.30); CALCIUM LEVEL 9.5 MG/DL (8.5-10.1); CREATININE FOR GFR 1.53 MG/DL (0.70-1.30); GLOMERULAR FILTRATION RATE 50.7 (>56); POTASSIUM SERUM 4.3 MEQ/L (3.5-5.1); URIC ACID 7.2 MG/DL (3.5-7.2)
[2019-04-03 19:34] LABS: ERYTHROCYTE SEDIMENTATION RATE 9 mm/hr (0-20)
[2019-04-03] MEDS ORDERED: NS 1,000 ML IV ONE (20:45)
[2019-04-03] MEDS ORDERED: SIMVASTATIN 20 MG TAB PO SCH (21:00)
[2019-04-03] MEDS: DOCUSATE SODIUM 100 MG CAP PO SCH (21:00)
[2019-04-03] MEDS ORDERED: HumaLOG INSULIN (NovoLOG) PER UNIT SC SCH (21:00)
[2019-04-03] MEDS ORDERED: MOM 30ML SUSPENSION UDC PO PRN (21:00)
[2019-04-03] MEDS ORDERED: METOPROLOL SUCC (TopROL XL) 50MG **XL** TAB PO SCH (21:00)
[2019-04-03] MEDS ORDERED: MAALOX 30 ML SUSP *UDC PO PRN (21:00)
[2019-04-03] MEDS ORDERED: CHLORTHALIDONE 25 MG TAB PO SCH (21:00)
[2019-04-03] MEDS ORDERED: allopurinoL 100 MG TAB PO SCH (21:00)
[2019-04-03] MEDS ORDERED: VERAPAMIL 120 MG SR TAB PO SCH (21:00)
[2019-04-03] MEDS ORDERED: NS 1,000 ML IV SCH (21:15)
[2019-04-03] MEDS ORDERED: VITA50005 PO (21:29)
[2019-04-03] MEDS ORDERED: CHLO50TA PO (21:29)
[2019-04-03] MEDS ORDERED: ALLO100T PO (21:29)
[2019-04-03] MEDS ORDERED: LOSA100T50 PO (21:29)
[2019-04-03] MEDS ORDERED: METF-791 PO (21:29)
[2019-04-03] MEDS ORDERED: JANU100T PO (21:29)
[2019-04-03] MEDS ORDERED: SIMV20TA22 PO (21:29)
[2019-04-03] MEDS ORDERED: SPIR-10 PO (21:29)
[2019-04-03] MEDS ORDERED: METO1TAB7 PO (21:29)
[2019-04-03] MEDS ORDERED: NAPR-885 PO (21:29)
[2019-04-03] MEDS ORDERED: METH1TAB40 PO (21:29)
[2019-04-03] MEDS ORDERED: VERA120T4 PO (21:29)
[2019-04-03 22:50] VITALS: BP 164/93
--- NOTE | 2019-04-03 22:51 | HPEPDOC ---
[facility] Medical History & Physical Date of Admission Apr 03, 2019 Date of Service: Apr 03, 2019 Primary Care Physician: Tiffany Butcher PA-C ER Attending Physician: ANN SANDY MD History and Physical TIME OF SERVICE: 9:30 PM CHIEF COMPLAINT: Left knee pain HISTORY OF PRESENT ILLNESS: This is a 53-year-old male who presents with complaints of 9 / 10 in severity left knee pain that began last night associated with a "red streak" down the anterolateral aspect of the left lower leg and chills. Denies having fever, denies having nausea, vomiting, and denies having difficulties walking. He reports that the left pain is actually less severe when he is standing up. He denies having trauma to the left lower leg but has noted a small round raised area at the anterior aspect of the left lower leg just below the knee. The patient took extra doses of his allopurinol at this didn't help the pain. REVIEW OF SYSTEMS: 12 point review of systems negative except as listed in HPI PAST MEDICAL/ SURGICAL HISTORY: LAURO Bilateral carotid stenosis ( 80% occlusion. According to patient there are plans for surgery in the near future). Chronic CAD status post PCI 4 / Dyslipidemia Gout NIDDM Chronic hypertension History of right lower extremity DVT PTSD Status post lithotripsy Status post right knee arthroscopy Umbilical hernia Morbid obesity SOCIAL HISTORY: Former smoker He drinks alcohol occasionally FAMILY HISTORY: CAD Diabetes ALLERGIES: Please see below. HOME MEDICATIONS: Please see below. PHYSICAL EXAMINATION: VITAL SIGNS: Please see below. GEN: Obese/ well developed/ NAD INTEGUMENT: not flushed/is around raised lesion at the anterior aspect of the left lower leg. The skin at the left lower leg extending up to the knee is red and thickened and warm to touch. HEENT: NCAT /mucus membranes moist and pink CVS: RRR/NMRG/ radial pulses intact / left lower leg is edematous LUNGS: lungs are clear to auscultation bilaterally on room air ABDOMEN: Contour (obese) / he has an umbilical hernia MSK/EXTREMITIES: range of motion intact in all 4 extremities except for left knee were range of motion is limited by pain and swelling NEURO: CN 2-12 are grossly intact / speech is not dysarthric PSYCH: alert and oriented to person place and time/ able to understand and follow all commands LABORATORY DATA: See below. IMAGING: Left lower extremity ultrasound " IMPRESSION: No sonographic evidence of deep vein thrombosis. " X-ray of the left knee " Impression: Three compartment osteoarthritis prior. Probable joint effusion. No fracture seen. [place] view could not be obtained." MICROBIOLOGY: Please see below. ASSESSMENT: Mr. Mello is a 53 old female the past with history of LAURO, carotid stenosis, CAD, gout, NIDDM, hypertension, and PTSD is admitted for management of TAVARES, LLE cellulitis and left knee pain 2/2 gout or joint infection. PLAN: 1. Mild TAVARES Cause, may be prerenal azotemia (dehydration, NSAIDs, ACEI) His baseline creatinine is 1.11, today it is 1.53. His BUN has increased from 19-28 while his GFR has decreased from 60-50.7. Plan: Admit to medical floor/ IVF / f/u ulytes for FENa or FEUrea / if his renal function does not improve in the morning, the daytime team may consider ordering a renal US / we will hold spironolactone, naproxen, metformin, and losartan 2. Left lower extremity swelling 2/2 cellulitis He appears to have left lower external cellulitis. His predisposing factors for cellulitis include toenail fungus and obesity. Duplex was negative for DVT Plan: start Bactrim for LLE cellulitis / the patient reports taking several courses of medication to manage the toenail fungus which reports have not been successful, the daytime team may consider outpatient podiatry referral 3. Left knee pain and swelling The left knees also swollen and red and the x-ray of the knee identified an effusion therefore, he might have extension of the infection into the knee or gout. ESR was within normal limits, but the WBC count and CRP were slightly elevated. His uric acid was 7.2 Plan: c/w allopurinol / the daytime team may consider an Ortho consult for aspiration of the knee effusion prior to determining if he needs steroids for gout / I'll hold off starting colchicine because of his renal impairment 4. Chronic CAD status post PCI 4 / Dyslipidemia / Bilateral carotid stenosis Plan: Simvastatin, metoprolol 5. NIDDM Plan: f/u accuchecks & A1C / hypoglycemia protocol / sliding scale insulin /metformin and sitagliptin 6. Resistant? Chronic hypertension Plan: low salt diet / Metoprolol, chlorthalidone, verapamil / losartan & spirinolactone are on hold 7. Morbid obesity. His BMI is 49.2. This complicates care. He is a candidate for bariatric surgery Plan: can f/u w PCP for STOP BANG questionnaire, twister doffer consult & referral for Bariatric Surgeon / recommend cardiovascular exercise for 40 min 4-5 days a week DVT PROPHYLAXIS: Karen DISPOSITION: Likely home after more than 2 night's stay Vital Signs Vital Signs Date Time Temp Pulse Resp B/P (MAP) Pulse Ox O2 Delivery O2 Flow Rate FiO2 04/03/19 22:30 97.2 71 18 180/101 (127) 98 Room Air Laboratory Data Labs 24H Laboratory Tests 2 04/03/19 18:43: Immature Granulocyte % (Auto) 0.5, Neutrophils (%) (Auto) 70.0H, Lymphocytes (%) (Auto) 19.3L, Monocytes (%) (Auto) 7.5H, Eosinophils (%) (Auto) 2.3, Basophils (%) (Auto) 0.4, Neutrophils # (Auto) 7.8, Lymphocytes # (Auto) 2.1, Monocytes # (Auto) 0.8, Eosinophils # (Auto) 0.3, Basophils # (Auto) 0.0, Nucleated Red Blood Cells % (auto) 0.0, Erythrocyte Sedimentation Rate 9, Anion Gap 4L, Pam merular Filtration Rate 50.7L, Uric Acid 7.2, Calcium Level 9.5, C-Reactive Protein, Quantitative 4.69H CBC/BMP Laboratory Tests 04/03/19 18:43 Home Medications Scheduled Allopurinol (Allopurinol) 100 Mg Tablet, 100 MG PO QPM TAKES AT 1600 Chlorthalidone (Chlorthalidone) 50 Mg Tablet, 50 MG PO QPM TAKES AT 1600 Ergocalciferol (Vitamin D2) (Vitamin D2) 50,000 Units Cap, 50,000 UNITS PO 1XWK TUESDAY MORNING Losartan Potassium (Losartan Potassium) 100 Mg Tablet, 100 MG PO QPM TAKES AT 1600 Metformin HCl (Metformin HCl ER) 500 Mg Tab.er.24h, 500 MG PO BID Metoprolol Succinate (Metoprolol Succinate) 50 Mg Tab.er.24h, 50 MG PO QPM TAKES AT 1600 Simvastatin (Simvastatin) 20 Mg Tablet, 20 MG PO QPM TAKES AT 1600 Sitagliptin Phosphate (Januvia) 100 Mg Tablet, 100 MG PO QPM TAKES AT 1600 Spironolactone (Spironolactone) 25 Mg Tablet, 25 MG PO QPM TAKES AT 1600 Verapamil HCl (Verapamil ER) 120 Mg Tablet.er, 120 MG PO QPM TAKES AT 1600 Scheduled PRN Methocarbamol (Methocarbamol) 500 Mg Tablet, 500 MG PO TID PRN for MUSCLE SPASMS Naproxen (Naproxen) 500 Mg Tablet, 500 MG PO BID PRN for PAIN Allergies Coded Allergies: morphine (Verified Allergy, Intermediate, vomits, 10/16/18) A-FIB/CHADSVASC A-FIB History Current/History of A-Fib/PAF?: No Current PO Anticoag Therapy: No ANN SANDY MD Apr 03, 2019 22:51
[2019-04-03] MEDS: ACETAMINOPHEN TAB 650MG DOSE (2X325MG) PO PRN (23:26)
[2019-04-03] MEDS ORDERED: BACTRIM 80MG/400MG TAB PO SCH (23:30)
[2019-04-03] MEDS ORDERED: GLUCAGON FOR INJ 1 MG VIAL (J1610) SC PRN (23:45)
[2019-04-03] MEDS ORDERED: DEXTROSE 50% 50 ML SYRINGE IV PRN (23:45)
[2019-04-03] MEDS ORDERED: GLUCOSE 4 GM CHEW TABLET PO PRN (23:45)
[2019-04-04 00:21] VITALS: BP 164/93
[2019-04-04] MEDS: BACTRIM 160MG/800MG DS TAB PO SCH ×2 (01:16→08:01)
[2019-04-04 06:00] VITALS: BP 124/78
[2019-04-04 06:07] LABS: HEMATOCRIT 46.3 % (42.0-52.0); HEMOGLOBIN 15.3 g/dl (13.5-17.5); MEAN CORPUSCULAR HEMOGLOBIN 28.5 pg (27.0-33.0); MEAN CORPUSCULAR VOLUME 86.2 fl (80.0-96.0); PLATELET COUNT, AUTOMATED 212 10^3/uL (150-450); RED BLOOD COUNT 5.37 10^6/uL (4.30-6.10); WHITE BLOOD COUNT 10.4 10^3/uL (4.0-10.0)
[2019-04-04 06:27] LABS: BLOOD UREA NITROGEN 26 MG/DL (7-18); CARBON DIOXIDE LEVEL 25 MEQ/L (21-32); CHLORIDE LEVEL 104 MEQ/L (98-107); CREATININE FOR GFR 1.29 MG/DL (0.70-1.30); GLOMERULAR FILTRATION RATE > 60.0 (>56); GLUCOSE, FASTING 172 MG/DL (70-100); POTASSIUM SERUM 3.9 MEQ/L (3.5-5.1); SODIUM LEVEL 139 MEQ/L (136-145)
[2019-04-04] MEDS: ACETAMINOPHEN TAB 650MG DOSE (2X325MG) PO PRN ×2 (06:48→13:04)
[2019-04-04] MEDS: DOCUSATE SODIUM 100 MG CAP PO SCH (08:02)
[2019-04-04] MEDS: HumaLOG INSULIN (NovoLOG) PER UNIT SC SCH ×2 (08:45→12:51)
[2019-04-04] MEDS ORDERED: ENOXAPARIN 40 MG/0.4 ML SYRINGE (J1650) SC SCH (09:00)
[2019-04-04] MEDS ORDERED: MYCOLOG CREAM 15 GM (NYSTATIN/TRIAMCINOLONE) TOP SCH (09:00)
--- NOTE | 2019-04-04 10:03 | IPNPDOC ---
Subjective Date Seen The patient was seen on 04/04/19. Subjective Chief Complaint/HPI Update: Patient was medically cleared and discharged 04/04/19 Admitting Diagnoses: 1. Mild TAVARES 2. Cellulitis Left Lower Extremity 3. Left Knee Pain and Swelling 4. Chronic CAD status post PCI x 4 5. Dyslipidemia 6. Bilateral Carotid Stenosis 7. DMII 8. Hypertension 9. Morbid Obesity 10.Tinea Corporis Discharge Diagnoses: 1. Mild TAVARES 2. Cellulitis Left Lower Extremity 3. Left Knee Pain and Swelling 4. Chronic CAD status post PCI x 4 5. Dyslipidemia 6. Bilateral Carotid Stenosis 7. DMII 8. Hypertension 9. Morbid Obesity 10.Tinea Corporis Mr. Mello is a 53 year old male admitted to the hospital due to TAVARES and cellulitis of the left leg. He is seen today laying in his hospital bed. Pt stated his leg and knee look much better this morning than they did last night. He denied being outdoors over the past few weeks. He has a Hx of arthritis in the knee and has had to have fluid aspirated in the past. Pt stated he fell at work a month ago and has been receiving PT. The pain and swelling in the L knee started 2 days prior. His wondered if he had been bitten by a spider. He went to PT as scheduled and they advised him to go to the hospital as the knee was red and swollen and there was a red streak extending down the leg. Pt denied fever, chills, night sweats, N/V. Rash behind the L thigh/knee - patient stated the rash started x 2 weeks ago, he isn't sure how it started but he knows he scratches it a lot. General: Reports: Normal Appetite; Denies: Chills, Night Sweats, Fatigue, Malaise Constitutional: Denies: Chills, Fever, Malaise, Night Sweats Eyes: Denies: Pain ENT: Denies: Head Aches, Sore Throat Skin: Reports: Rash, Lesions, Itching Pulmonary: Denies: Dyspnea, Cough Cardiovascular: Denies: Chest Pain, Palpitations, Orthopnea, Edema, Lt Headedness Gastrointestinal: Denies: Nausea, Vomiting, Abdominal Pain, Diarrhea Genitourinary: Denies: Dysuria Musculoskeletal: Reports: Joint Pain (knee pain from OA and fall/trauma ); Denies: Neck Pain, Back Pain, Muscle Pain, Spasms Neurological: Denies: Weakness, Numbness, Change in speech, Confusion Psych: Reports: Mood Normal Attending Note 53 year old M admitted overnight for cellulitis of the left leg with redness stretching over knee and low c/f septic knee given history of gout. He is a diabetic, who has what appeared to be medial thigh tinea corporis that he reports to be pruritic and could have been the port of entry. He was started on bactrim overnight with much improvement to his cellulitis with receeding border and normal looking knee by morning without pain or swelling. He had also been admitted with a prerenal TAVARES that improved with the fluids he received in the ED. By this afternoon he felt well, ambulated, and we discharged him home to complete a 10 day course of bactrim of cellulitis. He was started on a topical fungal cream for the tinea and will follow up with his PCP shortly. Of note, he does have a history of OA and has had fluid aspirated from his knees in the past, he also sustained a fall at work a few weeks ago with ongoing PT. Objective Physical Examination General Exam: Positive: Alert, Cooperative, No Acute Distress Eye Exam: Positive: PERRLA, Conjunctiva & lids normal, EOMI; Negative: Sclera icteric ENT Exam: Positive: Atraumatic, Mucous membr. moist/pink, Pharynx Normal Neck Exam: Positive: Supple; Negative: thyromegaly Chest Exam: Positive: Clear to auscultation, Normal air movement Heart Exam: Positive: Rate Normal, Normal S1, Normal S2; Negative: Gallops, Murmurs, Rubs Abdomen Exam: Positive: Normal bowel sounds, Soft; Negative: Tenderness Extremity Exam: Positive: Normal pulses; Negative: Clubbing, Cyanosis, Edema Skin Exam: Positive: Nl turgor and temperature, Rash (spreading rash with satellite lesions and excoriations L thigh and posterior knee ), Lesion (area of cellulitis - redness, induration and increased warmth over the L richardson ), Pruritus Neuro Exam: Positive: Normal Gait, Normal Speech, Strength at 5/5 X4 ext, Cranial Nerves 3-12 NL Psych Exam: Positive: Mood NL, Oriented x 3 Assessment /Plan Assessment Mr. Mello is a 53 year old male admitted to the hospital due to TAVARES and cellulitis of the left leg. He is seen today laying in his hospital bed. Pt stated his leg and knee look much better this morning than they did last night. He denied being outdoors over the past few weeks. He has a Hx of arthritis in the knee and has had to have fluid aspirated in the past. Pt stated he fell at work a month ago and has been receiving PT. The pain and swelling in the L knee started 2 days prior. His wondered if he had been bitten by a spider. He went to PT as scheduled and they advised him to go to the hospital as the knee was red and swollen and there was a red streak extending down the leg. Pt denied fever, chills, night sweats, N/V. Rash behind the L thigh/knee - patient stated the rash started x 2 weeks ago, he isn't sure how it started but he knows he scratches it a lot. Pt has a PMHx of CAD, Carotid stenosis, DMII, HTN, HLD, LAURO, OA - knees, Morbid obesity, PTSD, H/O DVT, Gout. Left lower extremity ultrasound " IMPRESSION: No sonographic evidence of deep vein thrombosis. " X-ray of the left knee " Impression: Three compartment osteoarthritis prior. Probable joint effusion. No fracture seen. [place] view could not be obtai yogi." 1. Mild TAVARES Cause, may be prerenal azotemia (dehydration, NSAIDs, ACEI) ON admission, his Cr. was 1.53; resolved today His BUN has increased from 19-28 while his GFR has decreased from 60-50.7. - continue to hold spironolactone, naproxen, metformin, and losartan as pt vitals stable inpt. F/U with PCP regarding resuming or switching these medications. 2. Left lower extremity swelling 2/2 cellulitis He appears to have left lower external cellulitis; area marked to track clinical response. His predisposing factors for cellulitis include toenail fungus and obesity. Duplex was negative for DVT continue Bactrim x 10 days for LLE cellulitis outpt podiatry referral as suggested by night team 3. Left knee pain and swelling Today the swelling and redness around the knee have largely resolved possible source of infection identified on the upper thigh and posterior knee WBC responded to Bactrim DS; continue for 10 days therapy appears more cellulitis than gout today continue allopurinol, and Tylenol. Hold Naproxen due to nephrotoxicity and f/u with PCP 4. Chronic CAD status post PCI 4 / Dyslipidemia / Bilateral carotid stenosis continue BB and statin therapy as prescribed 5. NIDDM Discharged with Sitagliptin Metformin on hold due to nephrotoxicity; follow-up with PCP regarding resuming this medication 6. HTN continue metoprolol, chlorthalidone, verapamil losartan & spironolactone on hold due to TAVARES; pt is to follow up with PCP regarding resuming these medications 7. Morbid obesity. BMI is 49.2 which complicates care He is a candidate for bariatric surgery pt advised by admitting physician to f/u w PCP for STOP BANG questionnaire, special events assistant consult & referral for Bariatric Surgeon / recommend cardiovascular exercise for 40 min 4-5 days a week 8. Tinea Corporis - source of infection? Rash/excoriations extend to the posterior knee - start Mycolog. If rash responds, consider adding PO antifungal outpatient Plan/VTE VTE Prophylaxis Ordered?: Yes (Lovenox ) VS, I&O, 24H, Fishbone Vital Signs/I&O Vital Signs Date Time Temp Pulse Resp B/P (MAP) Pulse Ox O2 Delivery O2 Flow Rate FiO2 04/04/19 06:00 98.2 66 20 124/78 (93) 96 04/03/19 22:50 Room Air I&O- Last 24 Hours up to 6 AM 04/04/19 06:00 Intake Total 450 ml Output Total 450 ml Balance 0 ml Laboratory Data 24H LABS Laboratory Tests 2 04/03/19 18:43: Immature Granulocyte % (Auto) 0.5, Neutrophils (%) (Auto) 70.0H, Lymphocytes (%) (Auto) 19.3L, Monocytes (%) (Auto) 7.5H, Eosinophils (%) (Auto) 2.3, Basophils (%) (Auto) 0.4, Neutrophils # (Auto) 7.8, Lymphocytes # (Auto) 2.1, Monocytes # (Auto) 0.8, Eosinophils # (Auto) 0.3, Basophils # (Auto) 0.0, Nucleated Red Blood Cells % (auto) 0.0, Erythrocyte Sedimentation Rate 9, Anion Gap 4L, Glomerular Filtration Rate 50.7L, Uric Acid 7.2, Calcium Level 9.5, C-Reactive Protein, Quantitative 4.69H 04/03/19 23:52: Bedside Glucose (Misc Panel) 169H 04/04/19 05:24: Nucleated Red Blood Cells % (auto) 0.0, Anion Gap 10, Glomerular Filtration Rate > 60.0, Calcium Level 9.0 CBC/BMP Laboratory Tests 04/03/19 18:43 04/04/19 05:24 CARIDAD MANLEY PA-C Apr 04, 2019 10:03 OSCAR MUSE MD Apr 04, 2019 18:30
[2019-04-04] MEDS ORDERED: ACET1TAB55 PO (13:49)
[2019-04-04] MEDS ORDERED: SULF1TAB93 PO (13:49)
[2019-04-04 14:00] VITALS: BP 136/68
--- NOTE | 2019-04-04 18:43 | DS.PDOC ---
Discharge Summary General Date of Admission Apr 03, 2019 at 20:58 Date of Discharge 04/04/2019 Attending Physician: OSCAR MUSE MD Discharge Summary PROCEDURES PERFORMED DURING STAY: None ADMITTING DIAGNOSES: 1. Mild TAVARES 2. Cellulitis Left Lower Extremity 3. Left Knee Pain and Swelling 4. Chronic CAD status post PCI x 4 5. Dyslipidemia 6. Bilateral Carotid Stenosis 7. DMII 8. Hypertension 9. Morbid Obesity 10.Tinea Corporis DISCHARGE DIAGNOSES: Discharge Diagnoses: 1. Mild TAVARES 2. Cellulitis Left Lower Extremity 3. Left Knee Pain and Swelling 4. Chronic CAD status post PCI x 4 5. Dyslipidemia 6. Bilateral Carotid Stenosis 7. DMII 8. Hypertension 9. Morbid Obesity 10.Tinea Corporis COMPLICATIONS/CHIEF COMPLAINT: TAVARES. HISTORY OF PRESENT ILLNESS: 53-year-old man who presented with complaints of 9 / 10 in severity left knee pain that began last night associated with a "red streak" down the anterolateral aspect of the left lower leg and chills while denying any fever, nausea, vomiting, or difficulties walking. HOSPITAL COURSE: He was admitted overnight for cellulitis of the left leg with redness stretching over knee and low c/f septic knee given history of gout. He is a diabetic, who has what appeared to be medial thigh tinea corporis that he reports to be pruritic and could have been the port of entry. He was started on bactrim overnight with much improvement to his cellulitis with receeding border and normal looking knee by morning without pain or swelling and with full range of motion and normal gait. He was also been admitted with a prerenal TAVARES that improved with the fluids he received in the ED. By this afternoon he felt well, ambulated, and we discharged him home to complete a 10 day course of bactrim of cellulitis. He was started on a topical fungal cream for the tinea and will follow up with his PCP shortly. Of note, he does have a history of OA and has had fluid aspirated from his knees in the past, he also sustained a fall at work a few weeks ago with ongoing PT. DISCHARGE MEDICATIONS: Please see below. ALLERGIES: Please see below. PHYSICAL EXAMINATION ON DISCHARGE: VITAL SIGNS: Please see below. General Exam: Alert, Cooperative, No Acute Distress Eye Exam: PERRLA, Conjunctiva & lids normal, EOMI, anicteric ENT Exam: Atraumatic, Mucous membr. moist/pink, Pharynx Normal Neck Exam: Supple, no thyromegaly Chest Exam: Clear to auscultation, Normal air movement Heart Exam: Rate Normal, Normal S1, Normal S2, no mrg Abdomen Exam: Obese, normoactive, NTND Extremity Exam: WWP, no LE edema Skin Exam: Nl turgor, has a spreading rash with satellite lesions and excoriations L thigh and posterior knee, area of cellulitis - redness, induration and increased warmth over the L richardson, Knee without erythema Neuro Exam: Normal Gait, Normal Speech, Strength at 5/5 X4 ext, Cranial Nerves 3-12 NL Psych Exam: Mood NL, Oriented x 3 LABORATORY DATA: Please see below. IMAGING: LLE venous doppler US: No sonographic evidence of deep vein thrombosis. Left knee Xray: A four views of the left knee demonstrate medial and patellofemoral osteoarthritic spurring. Lateral compartment spurring is also noted. There is fullness in the suprapatellar bursa region on lateral film consistent with joint effusion. No sunrise view is included. The findings are unchanged from the October 16, 2018 study. Impression: Three compartment osteoarthritis prior. Probable joint effusion. No fracture seen. [place] view could not be obtained. PROGNOSIS: Good ACTIVITY: As tolerated DIET: Consistent carb, 2g sodium DISCHARGE PLAN: Home with bactrim course and PCP follow up DISPOSITION: 01 Home, Self-Care. DISCHARGE INSTRUCTIONS: 1. Please complete the full course of bactrim for the ongoing cellulitis and please follow up with you PCP within the next 5-7d ITEMS TO FOLLOWUP ON ON OUTPATIENT: 1. LLE cellulits 2. L medial thigh tinea corporis DISCHARGE CONDITION: Stable TIME SPENT ON DISCHARGE: 35 minutes. Vital Signs/I&Os Vital Signs Date Time Temp Pulse Resp B/P (MAP) Pulse Ox O2 Delivery O2 Flow Rate FiO2 04/04/19 14:00 97.6 20 98 136/68 (90) 04/04/19 06:00 96 04/03/19 22:50 Room Air I&O- Last 24 Hours up to 6 AM 04/04/19 06:00 Intake Total 450 ml Output Total 450 ml Balance 0 ml Laboratory Data Labs 24H Laboratory Tests 2 04/03/19 18:43: Immature Granulocyte % (Auto) 0.5, Neutrophils (%) (Auto) 70.0H, Lymphocytes (%) (Auto) 19.3L, Monocytes (%) (Auto) 7.5H, Eosinophils (%) (Auto) 2.3, Basophils (%) (Auto) 0.4, Neutrophils # (Auto) 7.8, Lymphocytes # (Auto) 2.1, Monocytes # (Auto) 0.8, Eosinophils # (Auto) 0.3, Basophils # (Auto) 0.0, Nucleated Red Blood Cells % (auto) 0.0, Erythrocyte Sedimentation Rate 9, Anion Gap 4L, Glomerular Filtration Rate 50.7L, Uric Acid 7.2, Calcium Level 9.5, C-Reactive Protein, Quantitative 4.69H 04/03/19 23:52: Bedside Glucose (Misc Panel) 169H 04/04/19 05:24: Nucleated Red Blood Cells % (auto) 0.0, Anion Gap 10, Glomerular Filtration Rate > 60.0, Calcium Level 9.0 04/04/19 11:34: Bedside Glucose (Misc Panel) 141H CBC/BMP Laboratory Tests 04/03/19 18:43 04/04/19 05:24 FSBS Laboratory Tests Test 04/03/19 23:52 04/04/19 11:34 Range/Units Bedside Glucose (Misc Panel) 169 141 70-105 MG/DL Discharge Medications Scheduled Allopurinol (Allopurinol) 100 Mg Tablet, 100 MG PO QPM, (Reported) TAKES AT 1600 Chlorthalidone (Chlorthalidone) 50 Mg Tablet, 50 MG PO QPM, (Reported) TAKES AT 1600 Ergocalciferol (Vitamin D2) (Vitamin D2) 50,000 Units Cap, 50,000 UNITS PO 1XWK, (Reported) TUESDAY MORNING Metoprolol Succinate (Metoprolol Succinate) 50 Mg Tab.er.24h, 50 MG PO QPM, (Reported) TAKES AT 1600 Simvastatin (Simvastatin) 20 Mg Tablet, 20 MG PO QPM, (Reported) TAKES AT 1600 Sitagliptin Phosphate (Januvia) 100 Mg Tablet, 100 MG PO QPM, (Reported) TAKES AT 1600 Sulfamethoxazole/Trimethoprim (Sulfamethoxazole-Tmp Ds Tablet) 1 Each Tablet, 1 TAB PO Q12H Verapamil HCl (Verapamil ER) 120 Mg Tablet.er, 120 MG PO QPM, (Reported) TAKES AT 1600 Scheduled PRN Acetaminophen (Acetaminophen) 325 Mg Tablet, 650 MG PO Q4H PRN for PAIN OR FEVER Methocarbamol (Methocarbamol) 500 Mg Tablet, 500 MG PO TID PRN for MUSCLE SPASMS, (Reported) Allergies Coded Allergies: morphine (Verified Allergy, Intermediate, vomits, 10/16/18) OSCAR MUSE MD Apr 04, 2019 18:37
== END 2019-04-04 17:03 | disposition home or self-care (01) | DRG 383 ==
LOC: M ED 16:39 → M ED INP 20:58 → ENRESERV 21:27 → M MSPAV 22:50
PROVIDERS: ADMIT Internal Medicine; ATTEND Internal Medicine
DX: L03.116 Cellulitis of left lower limb (principal); N17.9 Acute kidney failure, unspecified; I65.23 Occlusion and stenosis of bilateral carotid arteries; Z68.42 Body mass index [BMI] 45.0-49.9, adult; E78.5 Hyperlipidemia, unspecified; E11.9 Type 2 diabetes mellitus without complications; I10 Essential (primary) hypertension; B35.4 Tinea corporis; E66.01 Morbid (severe) obesity due to excess calories; I25.10 Atherosclerotic heart disease of native coronary artery without angina pectoris; G47.33 Obstructive sleep apnea (adult) (pediatric); M10.9 Gout, unspecified; M25.462 Effusion, left knee; F43.10 Post-traumatic stress disorder, unspecified; Z86.718 Personal history of other venous thrombosis and embolism; Z95.5 Presence of coronary angioplasty implant and graft; Z87.442 Personal history of urinary calculi; Z87.891 Personal history of nicotine dependence; Z79.899 Other long term (current) drug therapy; Z88.5 Allergy status to narcotic agent

== ENCOUNTER → 2019-05-30 | Outpatient (CLI) | payer OTHER ==
[~2019-05-30] MED LIST changes: +ACET1TAB55 PO; +ALLO100T PO; +JANU100T PO; +LOSA100T50; +LOSA100T50 PO; +METF-791 PO; +METH1TAB40; +METH1TAB40 PO; +METO1TAB7; +METO1TAB7 PO; +NAPR-885 PO; +SIMV20TA22 PO; +SULF1TAB93 PO; +VITA50005 PO
[2019-05-30 13:38] LABS: ALT/SGPT 48 U/L (12-78); BLOOD UREA NITROGEN 25 MG/DL (7-18); CALCIUM LEVEL 9.7 MG/DL (8.5-10.1); CARBON DIOXIDE LEVEL 32 MEQ/L (21-32); CHLORIDE LEVEL 102 MEQ/L (98-107); CHOLESTEROL LEVEL 196 MG/DL (<200); CPK CREATINE PHOSPHOKINASE 90 U/L (39-308); CREATININE FOR GFR 1.29 MG/DL (0.70-1.30); GLOMERULAR FILTRATION RATE > 60.0 (>56); GLUCOSE, FASTING 228 MG/DL (70-100); HDL CHOLESTEROL 56 MG/DL (>40); LDL CHOLESTEROL 124 MG/DL (<100); NON-HDL-C 140 MG/DL; POTASSIUM SERUM 4.6 MEQ/L (3.5-5.1); SODIUM LEVEL 137 MEQ/L (136-145); TRIGLYCERIDES LEVEL 81 MG/DL (<150)
== END ==
LOC: M WUC 08:32
PROVIDERS: ATTEND Internal Medicine Cardiovascular Disease
DX: I65.23 Occlusion and stenosis of bilateral carotid arteries (principal)

== ENCOUNTER → 2019-06-08 | Outpatient (REF) | payer OTHER ==
[2019-06-08 13:20] LABS: CREATININE FOR GFR 1.42 MG/DL (0.70-1.30); GLOMERULAR FILTRATION RATE 55.1 (>56); POTASSIUM SERUM 4.9 MEQ/L (3.5-5.1)
[2019-06-08 13:31] LABS: TOTAL 25(OH) VITAMIN D 28.4 NG/ML (30.0-100.0)
[2019-06-08 13:52] LABS: HEMOGLOBIN A1c 8.8 %
[2019-06-08 14:46] LABS: MALB URINE SIEMENS 20.6 MG/L; MAU/CREAT RATIO 45.7 MCG/MG (0.0-30.0)
== END ==
LOC: M SFHCPLAZ 10:57
PROVIDERS: ATTEND Physician Assistant
DX: E11.9 Type 2 diabetes mellitus without complications (principal); E55.9 Vitamin D deficiency, unspecified; R60.0 Localized edema

== ENCOUNTER 2019-06-28 10:47 | Emergency (ER) | payer OTHER ==
[~2019-06-28] VITALS: Ht 172.7 cm; Wt 152.3 kg
[2019-06-28] MEDS ORDERED: METF500T13 (10:57)
[2019-06-28] MEDS ORDERED: ATOR80TA59 (10:57)
[2019-06-28] MEDS ORDERED: AMLO5TAB6 (10:57)
[2019-06-28] MEDS ORDERED: FURO20TA2 (10:57)
[2019-06-28] MEDS ORDERED: LOSA50TA88 (10:57)
[2019-06-28] MEDS ORDERED: SPIR-10 (10:57)
[2019-06-28 11:31] LABS: BASO % 0.3 % (0.0-1.0); EOS % 0.5 % (0.0-3.0); HEMATOCRIT 46.8 % (42.0-52.0); HEMOGLOBIN 15.9 g/dl (13.5-17.5); LYMPH # 0.7 10^3/uL (1.5-5.0); LYMPH % 9.8 % (24.0-44.0); MEAN CORPUSCULAR HEMOGLOBIN 29.4 pg (27.0-33.0); MEAN CORPUSCULAR VOLUME 86.7 fl (80.0-96.0); MONO # 0.5 10^3/uL (0.0-0.8); MONO % 8.1 % (0.0-5.0); NEUTROPHILS # 5.4 10^3/uL (1.5-8.5); NEUTROPHILS % 80.8 % (36.0-66.0); PLATELET COUNT, AUTOMATED 184 10^3/uL (150-450); WHITE BLOOD COUNT 6.7 10^3/uL (4.0-10.0)
--- NOTE | 2019-06-28 11:53 | REP ---
REASON FOR EXAM: Cough and dyspnea. COMPARISON: 09/22/2017 The technique utilized in obtaining the radiograph has magnified the cardiac silhouette and accentuated the interstitial markings. Once again, the cardiac silhouette is magnified by technique. It is unchanged in appearance. The lung sahu are unchanged. No acute patchy parenchymal opacities or pleural effusions have developed. There is no change in the osseous structures. IMPRESSION: Stable chest without evidence of acute cardiopulmonary disease. Electronically Signed by Kishore Rogers DO 06/28/2019 01:59 P
[2019-06-28 12:00] LABS: ALBUMIN 3.6 GM/DL (3.2-5.2); ALT/SGPT 65 U/L (12-78); BILIRUBIN,DIRECT 0.2 MG/DL (0.0-0.2); BILIRUBIN,TOTAL 0.8 MG/DL (0.2-1.0); BLOOD UREA NITROGEN 23 MG/DL (7-18); CALCIUM LEVEL 9.4 MG/DL (8.5-10.1); CARBON DIOXIDE LEVEL 27 MEQ/L (21-32); CHLORIDE LEVEL 105 MEQ/L (98-107); CK-MB VALUE MASS 1.9 NG/ML (<3.6); CPK CREATINE PHOSPHOKINASE 87 U/L (39-308); CREATININE FOR GFR 1.23 MG/DL (0.70-1.30); GLOMERULAR FILTRATION RATE > 60.0 (>56); GLUCOSE, FASTING 201 MG/DL (70-100); MB/CK RELATIVE INDEX 2.18 (< OR =4); NT-PRO BNP 128 PG/ML (<125); POTASSIUM SERUM 4.6 MEQ/L (3.5-5.1); SODIUM LEVEL 135 MEQ/L (136-145); TOTAL PROTEIN 7.5 GM/DL (6.4-8.2); TROPONIN I 0.03 NG/ML (< 0.10)
[2019-06-28 13:02] VITALS: BP 135/76
[2019-06-28] MEDS ORDERED: AMOX500C PO (13:02)
--- NOTE | 2019-06-28 18:21 | ECGEPIP ---
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
== END 2019-06-28 13:37 | disposition home or self-care (01) ==
LOC: M ED 10:47 → EEVIPCON 10:47 → M ED 13:37
DX: J02.0 Streptococcal pharyngitis (principal); R05 Cough; R07.9 Chest pain, unspecified; R19.7 Diarrhea, unspecified; E11.9 Type 2 diabetes mellitus without complications; I10 Essential (primary) hypertension; E78.5 Hyperlipidemia, unspecified; G47.33 Obstructive sleep apnea (adult) (pediatric); E66.01 Morbid (severe) obesity due to excess calories; Z87.891 Personal history of nicotine dependence; Z82.49 Family history of ischemic heart disease and other diseases of the circulatory system; Z79.84 Long term (current) use of oral hypoglycemic drugs; Z79.899 Other long term (current) drug therapy; Z88.5 Allergy status to narcotic agent
CPT/HCPCS: 71045; 80048; 80076; 82550; 82553; 83605; 83880; 84443; 85025; 87040; 87486; 87581; 87633; 87798; 93005; 93041; 94760; 99285; U0002

== ENCOUNTER 2019-07-04 17:06 | Emergency (ER) | payer OTHER ==
[~2019-07-04] VITALS: Ht 175.3 cm; Wt 150.0 kg
[~2019-07-04 17:06] MED LIST changes: +AMLO5TAB6 PO; +AMOX500C PO; +ATOR80TA59 PO; +LOSA50TA88 PO; +METF500T13 PO; +SPIR-10
[2019-07-04 18:11] VITALS: BP 138/89
[2019-07-04 18:28] LABS: BASO % 0.2 % (0.0-1.0); EOS % 0.9 % (0.0-3.0); HEMATOCRIT 47.7 % (42.0-52.0); HEMOGLOBIN 16.1 g/dl (13.5-17.5); LYMPH # 1.3 10^3/uL (1.5-5.0); LYMPH % 29.3 % (24.0-44.0); MEAN CORPUSCULAR HEMOGLOBIN 29.1 pg (27.0-33.0); MEAN CORPUSCULAR HGB CONC 33.8 g/dl (32.0-36.5); MEAN CORPUSCULAR VOLUME 86.3 fl (80.0-96.0); MONO # 0.5 10^3/uL (0.0-0.8); MONO % 9.8 % (0.0-5.0); NEUTROPHILS # 2.7 10^3/uL (1.5-8.5); NEUTROPHILS % 59.6 % (36.0-66.0); PLATELET COUNT, AUTOMATED 159 10^3/uL (150-450); RED BLOOD COUNT 5.53 10^6/uL (4.30-6.10); WHITE BLOOD COUNT 4.6 10^3/uL (4.0-10.0)
[2019-07-04 18:44] LABS: INR 1.05; PROTHROMBIN TIME 13.4 SECONDS (11.8-14.0)
[2019-07-04 18:45] LABS: PARTIAL THROMBOPLASTIN TIME 29.7 SECONDS (25.0-38.4)
[2019-07-04 18:47] LABS: D-DIMER QUANT 483.85 ng/ml (<500)
[2019-07-04 18:49] LABS: ALBUMIN 3.4 GM/DL (3.2-5.2); BILIRUBIN,TOTAL 0.5 MG/DL (0.2-1.0); C REACTIVE PROTEIN QUANTITATIV 1.8 MG/DL (0.00-0.30); CALCIUM LEVEL 8.7 MG/DL (8.5-10.1); CK-MB VALUE MASS 2.4 NG/ML (<3.6); CREATININE FOR GFR 1.34 MG/DL (0.70-1.30); GLOMERULAR FILTRATION RATE 58.9 (>56); MB/CK RELATIVE INDEX 2.18 (< OR =4); POTASSIUM SERUM 4.3 MEQ/L (3.5-5.1); TOTAL PROTEIN 7.2 GM/DL (6.4-8.2); TROPONIN I 0.08 NG/ML (< 0.10)
--- NOTE | 2019-07-04 19:28 | ECGEPIP ---
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
--- NOTE | 2019-07-04 20:24 | REP ---
CHEST, SINGLE VIEW: Single view of the chest is performed and compared to prior study of 06/28/2019. There is no change since that prior exam. Cardiac silhouette is mildly prominent and unchanged. Mediastinal silhouette is unchanged. There is mild bilateral interstitial prominence which is stable. No new infiltrate is seen. IMPRESSION: Stable appearance of the chest with no acute infiltrate. Electronically Signed by Daniel Ivy MD 07/05/2019 11:58 A
== END 2019-07-04 20:03 | disposition home or self-care (01) ==
LOC: M ED 17:06
DX: B34.2 Coronavirus infection, unspecified (principal); E11.9 Type 2 diabetes mellitus without complications; I10 Essential (primary) hypertension; G47.30 Sleep apnea, unspecified; E66.9 Obesity, unspecified; Z79.899 Other long term (current) drug therapy; Z79.84 Long term (current) use of oral hypoglycemic drugs; Z88.5 Allergy status to narcotic agent; Z87.891 Personal history of nicotine dependence

== ENCOUNTER 2019-07-06 12:40 | Inpatient (IN) | payer OTHER ==
[~2019-07-06] VITALS: Ht 175.3 cm; Wt 148.0 kg
[~2019-07-06 12:40] MED LIST changes: +AZITHROMYCIN 250MG TABLET PO SCH
[2019-07-06 13:28] LABS: BASO % 0.2 % (0.0-1.0); EOS % 0.4 % (0.0-3.0); HEMATOCRIT 46.9 % (42.0-52.0); HEMOGLOBIN 15.8 g/dl (13.5-17.5); LYMPH # 1.1 10^3/uL (1.5-5.0); LYMPH % 21.1 % (24.0-44.0); MEAN CORPUSCULAR HGB CONC 33.7 g/dl (32.0-36.5); MEAN CORPUSCULAR VOLUME 86.1 fl (80.0-96.0); MONO # 0.4 10^3/uL (0.0-0.8); MONO % 7.5 % (0.0-5.0); NEUTROPHILS # 3.8 10^3/uL (1.5-8.5); NEUTROPHILS % 70.4 % (36.0-66.0); PLATELET COUNT, AUTOMATED 164 10^3/uL (150-450); RED BLOOD COUNT 5.45 10^6/uL (4.30-6.10); WHITE BLOOD COUNT 5.4 10^3/uL (4.0-10.0)
[2019-07-06] MEDS ORDERED: JANU100T PO (13:32)
[2019-07-06] MEDS: ALBUTEROL 90 MCG/ACT 8GM HFA INHALER INH SCH ×4 (13:35→13:55)
[2019-07-06 13:37] LABS: INR 1.01
[2019-07-06 13:38] LABS: PARTIAL THROMBOPLASTIN TIME 28.8 SECONDS (25.0-38.4)
[2019-07-06 13:40] LABS: D-DIMER QUANT 430.24 ng/ml (<500)
[2019-07-06 13:43] LABS: ABG BASE EXCESS 2.2 (-2.0-2.0); ABG HCO3 26.9 MEQ/L (22.0-26.0); ABG O2 SATURATION 97.7 % (95.0-99.0); ABG PARTIAL PRESSURE CO2 41.8 mmHg (35.0-45.0); ABG PARTIAL PRESSURE O2 98.4 mmHg (75.0-100.0); ABG STANDARD HCO3 26.4 MEQ/L (22.0-26.0); ABG TOTAL CO2 28.2 MEQ/L (22.0-29.0); ABG pH (ARTERIAL) 7.426 UNITS (7.350-7.450)
[2019-07-06 13:55] LABS: ALBUMIN 3.3 GM/DL (3.2-5.2); ALT/SGPT 43 U/L (12-78); BILIRUBIN,TOTAL 0.6 MG/DL (0.2-1.0); BLOOD UREA NITROGEN 17 MG/DL (7-18); C REACTIVE PROTEIN QUANTITATIV 3.69 MG/DL (0.00-0.30); CARBON DIOXIDE LEVEL 30 MEQ/L (21-32); CHLORIDE LEVEL 102 MEQ/L (98-107); CK-MB VALUE MASS 1.1 NG/ML (<3.6); CPK CREATINE PHOSPHOKINASE 132 U/L (39-308); GLOMERULAR FILTRATION RATE > 60.0 (>56); GLUCOSE, FASTING 185 MG/DL (70-100); LDH LACTATE DEHYDROGENASE 199 U/L (87-241); MB/CK RELATIVE INDEX 0.83 (< OR =4); SODIUM LEVEL 136 MEQ/L (136-145); TOTAL PROTEIN 7.9 GM/DL (6.4-8.2); TROPONIN I 0.06 NG/ML (< 0.10)
--- NOTE | 2019-07-06 14:52 | REP ---
CHEST, PORTABLE: AP portable view of the chest is performed and compared to a prior study of 07/04/2019. There are questionable areas of minimal infiltrate in the right upper and lower lung zones. No definite infiltrate is seen in the left lung. The heart and mediastinum are unchanged in appearance. IMPRESSION: Possible minimal infiltrate right upper and lower lung zones. Electronically Signed by Daniel Ivy MD 07/06/2019 03:02 P
[2019-07-06] MEDS ORDERED: APAP325T4 PO (15:04)
[2019-07-06] MEDS ORDERED: METH1TAB40 PO (15:04)
[2019-07-06] MEDS ORDERED: AMOX500C PO (15:08)
[2019-07-06] MEDS ORDERED: ALBUTEROL 90 MCG/ACT 8GM HFA INHALER INH PRN (16:00)
[2019-07-06] MEDS ORDERED: DEXTROSE 50% 50 ML SYRINGE IV PRN (16:30)
[2019-07-06] MEDS ORDERED: GLUCAGON INJ 1MG VIAL SC PRN (16:30)
[2019-07-06] MEDS ORDERED: GLUCOSE 4GM CHEW TABLET PO PRN (16:30)
[2019-07-06] MEDS ORDERED: ACETAMINOPHEN TAB 650MG DOSE (2X325MG) PO PRN (16:30)
--- NOTE | 2019-07-06 16:48 | HPEPDOC ---
[facility] Medical History & Physical Date of Admission Jul 06, 2019 Date of Service: Jul 06, 2019 Primary Care Physician: Neo Ferreira MD Attending Physician: Keesha Jimenez MD History and Physical CHIEF COMPLAINT: Increased shortness of breath, worsening cough HISTORY OF PRESENT ILLNESS: The patient is a 54-year-old male past medical history of recent diagnosis COVID-19 (06/28/19), morbid obesity, hypertension, hyperlipidemia, obstructive sleep apnea, diabetes mellitus type [address] [facility] emergency room after having worsening shortness of breath and cough over the past 8 days. The patient states he had an exposure to a positive COVID + patient at the end of May 2019. On 06/28/2019, the patient presented to ER with increased SOB, nonbloody diarrhea x 3 days, sore throat, nonproductive cough and chest tightness. CXR that day was neg, labs were unremarkable. He was diagnosed with Strep pharyngitis and test for COVID-19 that day, discharged home with amoxicillin x 10 days. On 07/01/19 he was called at home and told he tested positive for COVID-19. He states he continued to have worsening cough, shortness of breath worsened with activity or when laying flat. He returned to ER on 07/04/19 for continued symptoms but with CXR neg and saturating 94% on RA, he was discharged home to continue monitor symptoms. He continued to have fevers at home, RR 20-28, 93% on RA per patient. He returned back to the ER on 07/06/2019 with worsening symptoms, including a now productive cough yielding white sputum. The patient states he is no longer able to lay in bed as he was before due to his cough worsening and his shortness of breath more severe. Chest x-ray today shows likely minimal infiltrate in the right upper and lower lungs. When isabel red to the chest x-ray on 07/04/2019 this is new. Other worsened labs include CRP 3.7 from 1.7, d-dimer 598 from 483, fibrinogen 683, lymphocytes are low on differential of CBC. LDH 199, lactic acid 1.9, ABG showed pH 7.42/41.8/98.4/26.9. The patient was saturating well without moving at 94% on room air; however, would drop down to 91% on RA with movement inside the room with nursing staff. Pro-calcitonin, BNP, IL-6 were pending. The patient states the diarrhea he was having for the 8 days prior to today has resolved. Both the patient's and daughter are COVID- 19 positive. The patient was admitted under inpatient status for worsening shortness of breath secondary to right lobe pneumonia, positive SARS-CoV-2. REVIEW OF SYSTEMS: CONSTITUTIONAL: Denies unexplained weight gain or weight loss, loss of appetite, fever, night sweats EYES: Denies eye drainage, eye pain, visual changes, dry/irritated eye EARS, NOSE, MOUTH, THROAT: Denies difficulty hearing, ringing in ears, mouth sores, loose teeth, sore throat, facial numbness or pain, inability to smelling or tasting NECK: Denies swollen glands CARDIOVASCULAR: Denies irregular heartbeat, racing heart, chest pains, swelling of feet or legs, pain in legs with walking RESPIRATORY: Denies night sweats, wheezing, oxygen at home, coughing up blood, cough lasting > 1 month GASTROINTESTINAL: Denies abdominal pain, constipation, bloody stool, diarrhea, heartburn, nausea, vomiting GENITOURINARY: Denies painful urination, bloody urine, frequent urination, urgency, leaking urine, impotence MUSCULOSKELETAL: Denies joint pain, muscle pain, leg swelling INTEGUMENTARY: Denies rash, itching, new skin lesion, change in existing skin le itzel, hair loss or increase, breast changes. NEUROLOGICAL: Denies headaches, dizziness, difficulty walking, numbness or tingling PSYCHIATRIC: Denies depression, anxiety, recurrent bad thoughts, mood swings, hallucinations PAST MEDICAL HISTORY: 1. Hypertension 2. Hyperlipidemia 3. Morbid obesity 4. Obstructive sleep apnea, does not use CPAP 5. Diabetes mellitus type 2 6. History of lower extremity cellulitis 7. Recent diagnosis of strep pharyngitis 8. Bilateral carotid stenosis (greater than 90% on right side, greater than 75% on the left side) 9. SARS-CoV-2 positive 06/28/19 PAST SURGICAL HISTORY: 1. Cardiac catheterization 2. Right knee surgery FAMILY HISTORY: Father: Congestive heart failure, at 72 years old Mother: Diabetes mellitus type 2, at 62 years old Brother #1diabetes mellitus type 2, alive Brother #2diabetes mellitus type 2, alive Sr. #1diabetes mellitus type 2, alive Sr. #2diabetes mellitus type 2, alive SOCIAL HISTORY: The patient was a prior smoker of over 15 years, quit several years ago. Drinks alcohol socially, denies history of illicit drug use. [facility]CPDr. [facility]reira[facility] The patient ambulates independently. He does not have a healthcare proxy or living well. He is a full code. ALLERGIES: Morphineadverse reaction nausea/vomiting HOME MEDICATIONS: Please see below. PHYSICAL EXAMINATION: CONSTITUTIONAL: No acute distress, sitting up at bedside, AAO x 3 EYES: PERRLA, EOM intact, corrective lenses in place HENT, MOUTH: Normocephalic, atraumatic, moist mucous membranes, NECK: SUPPLE, no JVD, no lymphadenopathy, no carotid bruit CV: Regular rate and rhythm, S1S2 normal, no murmurs/rubs/gallops RESPIRATORY: Decreased breath sounds bilaterally, no rales/rhonchi/wheezes GI: obese abdomen, BS positive in 4 quadrants, soft, nontender, nondistended, no rebound or guarding, no organomegaly : Deferred MUSCULOSKELETAL: Normal ROM. No cyanosis, clubbing, swelling, joint deformity, nonpitting edema bilaterally INTEGUMENTARY: Skin changes on bilateral lower ext, Intact, no rashes, no lesions, no erythema NEUROLOGIC: Cranial Nerves II-XII are intact, no focal deficits PSYCHIATRIC: Mood and affect are normal LABORATORY DATA: Please see below IMAGING: Chest x-ray 07/04/2019: No acute disease Chest x-ray 07/06/2019: Possible minimal infiltrates in the right upper and lower lungs ASSESSMENT: The patient is a 54-year-old male admitted for right upper and lower lung pneumonia, positive SARS-CoV-2. PLAN: 1. Confirmed COVID-19 infection. Worsened symptoms, chest x-ray, CRP 3.7, d- dimer 598, fibrinogen 683, lymphocytes are low on differential of CBC. Currently saturating between 9194 % RA at rest and with movement. As per protocol follow- up CRP, CBC with differential, ferritin, pro-calcitonin, LDH, BNP, troponin, d- dimer, fibrinogen, PT/PTT every 12 hours. Follow up baseline HIV1/HIV2, interleukin-6, pro-calcitonin. Starting on hydroxychloroquine 400 mg by mouth twice a day 1 day then 200 mg by mouth daily 4 days and azithromycin 500 mg IV Q24H. Monitoring QTC with daily ECG and telemetry. Enoxaparin 0.5 mg/kg BID. Incentive spirometer Q2 hrs while awake, OOBTC and OOB with meals. Contact and droplet precautions initiated. Continue with supportive care and Q4H oxygen monitoring. O2 supplementation PRN. 2. Right upper and lower lung PNA. R/o bacterial etiology vs. 2/2 to COVID. F/u procalcitonin. If low, d/c ceftriaxone. F/u sputum, blood cx. 3. Strep pharyngitis. No throat pain today. Completed 8/10 day course oral amoxicillin. On ceftriaxone as alternative treatment. 4. HTN. Stable. C/w home medications. 5. HLD. C/w statin. 6. Vitamin D deficiency. C/w weekly supplementation. 7. DM type II. Holding home oral medications. ISS, AC/HS finger sticks, consistent carb diet. Start on detemir if BS uncontrolled with sliding scale alone. 8. LAURO. Does not use nightly CPAP yet due to not having gone for testing. Monitor for oxygen dropping nightly, may need some supplementation HS. 9. Bilateral carotid stenosis. Stable. 10. Morbid obesity. BMI 49.6. Nutrition to assess. 11. DVT px. Enoxaparin BID. DISPOSITION: Currently admitted under inpatient status. Plan is for discharge home when medically improved. Case discussed with Dr. Molina, Intensive Care. Vital Signs Vital Signs Date Time Temp Pulse Resp B/P (MAP) Pulse Ox O2 Delivery O2 Flow Rate FiO2 07/06/19 15:15 80 20 158/93 (114) 94 Room Air 07/06/19 13:40 2.0 07/06/19 13:00 100.1 Laboratory Data Labs 24H Laboratory Tests 2 07/06/19 13:13: Blood Gas Bicarbonate Standard 26.4H, Arterial Blood pH 7.426, Arterial Blood Partial Pressure CO2 41.8, Arterial Blood Partial Pressure O2 98.4, Arterial Blood Total CO2 28.2, Arterial Blood HCO3 26.9H, Arterial Blood Base Excess 2.2H, Arterial Blood Oxygen Saturation 97.7 07/06/19 13:14: Immature Granulocyte % (Auto) 0.4, Neutrophils (%) (Auto) 70.4H, Lymphocytes (%) (Auto) 21.1L, Monocytes (%) (Auto) 7.5H, Eosinophils (%) (Auto) 0.4, Basophils (%) (Auto) 0.2, Neutrophils # (Auto) 3.8, Lymphocytes # (Auto) 1.1L, Monocytes # (Auto) 0.4, Eosinophils # (Auto) 0.0, Basophils # (Auto) 0.0, Nucleated Red Blood Cells % (auto) 0.0, Prothrombin Time 13.0, Prothromb Time International Ratio 1.01, Activated Partial Thromboplast Time 28.8, D-Dimer, Quantitative 430.24, Anion Gap 4L, Glomerular Filtration Rate > 60.0, Lactic Acid Level 1.9, Calcium Level 9.0, Total Bilirubin 0.6, Aspartate Amino Transf (AST/SGOT) 26, Alanine Aminotransferase (ALT/SGPT) 43, Alkaline Phosphatase 83, Lactate Dehydrogenase 199, Total Creatine Kinase 132, Creatine Kinase MB 1.1, Creatine Kinase MB Relative Index 0.83, Troponin I 0.06#, C-Reactive Protein, Quantitative 3.69H, Total Protein 7.9, Albumin 3.3, Albumin/Globulin Ratio 0.72L 07/06/19 16:10: 07/06/19 16:23: CBC/BMP Laboratory Tests 07/06/19 13:14 Microbiology Microbiology 07/06/19 Blood Culture, Received Pending 07/06/19 Blood Culture, Received Pending Home Medications Scheduled Amlodipine Besylate (Amlodipine Besylate) 5 Mg Tablet, 5 MG PO DAILY Amoxicillin (Amoxicillin) 500 Mg Capsule, 500 MG PO Q8H STARTED 06/28/19 X 10 DAYS Atorvastatin Calcium (Atorvastatin Calcium) 80 Mg Tablet, 80 MG PO DAILY Ergocalciferol (Vitamin D2) (Vitamin D2) 50,000 Units Cap, 50,000 UNITS PO 1XWK TUESDAY MORNING Furosemide (Furosemide) 20 Mg Tablet, 20 MG PO DAILY Losartan Potassium (Losartan Potassium) 50 Mg Tablet, 50 MG PO DAILY Metformin HCl (Metformin HCl) 500 Mg Tablet, 500 MG PO BID Metoprolol Succinate (Metoprolol Succinate) 50 Mg Tab.er.24h, 50 MG PO DAILY Sitagliptin Phosphate (Januvia) 100 Mg Tablet, 100 MG PO DAILY Scheduled PRN Acetaminophen (Acetaminophen) 325 Mg Tablet, 650 MG PO Q4H PRN for PAIN / FEVER Allopurinol (Allopurinol) 100 Mg Tablet, 100 MG PO QPM PRN for GOUT TAKES AT 1600 Methocarbamol (Methocarbamol) 500 Mg Tablet, 1,000 MG PO QHS PRN for PAIN Allergies Coded Allergies: morphine (Verified Adverse Reaction, Mild, Vomiting, 06/28/19) A-FIB/CHADSVASC A-FIB History Current/History of A-Fib/PAF?: No Current PO Anticoag Therapy: No Age/Risk Factor Scoring CHADSVASC: CHADSVASC Response (Comments) Value Age Risk Factor Age < 65 years old 0 Gender Risk Factor Male 0 Hx of HTN Yes 1 Hx of Stroke/TIA/or VTE No 0 Hx of Diabetes Yes 1 Hx of Vascular Disease Yes 1 Total 3 Treatment Treatment ordered: Other (enoxaparin ) Other anticoagulant ordered: enoxaparin BID Keesha Jimenez MD Jul 06, 2019 16:48
[2019-07-06 16:50] LABS: INR 1.03; PROTHROMBIN TIME 13.2 SECONDS (11.8-14.0)
[2019-07-06 16:51] LABS: PARTIAL THROMBOPLASTIN TIME 28.3 SECONDS (25.0-38.4)
[2019-07-06 16:53] LABS: D-DIMER QUANT 598.04 ng/ml (<500)
[2019-07-06 17:09] LABS: BASO % 0.1 % (0.0-1.0); EOS % 0.3 % (0.0-3.0); HEMATOCRIT 46.5 % (42.0-52.0); HEMOGLOBIN 15.2 g/dl (13.5-17.5); LYMPH # 0.9 10^3/uL (1.5-5.0); LYMPH % 12.6 % (24.0-44.0); MEAN CORPUSCULAR HGB CONC 32.7 g/dl (32.0-36.5); MEAN CORPUSCULAR VOLUME 85.6 fl (80.0-96.0); MONO # 0.5 10^3/uL (0.0-0.8); MONO % 6.4 % (0.0-5.0); NEUTROPHILS % 80.3 % (36.0-66.0); PLATELET COUNT, AUTOMATED 177 10^3/uL (150-450); RED BLOOD COUNT 5.43 10^6/uL (4.30-6.10); WHITE BLOOD COUNT 7.5 10^3/uL (4.0-10.0)
[2019-07-06 17:14] LABS: C REACTIVE PROTEIN QUANTITATIV 3.84 MG/DL (0.00-0.30); CK-MB VALUE MASS 1.2 NG/ML (<3.6); CPK CREATINE PHOSPHOKINASE 140 U/L (39-308); FERRITIN 283 NG/ML (26-388); LDH LACTATE DEHYDROGENASE 218 U/L (87-241); MB/CK RELATIVE INDEX 0.86 (< OR =4); NT-PRO BNP 129 PG/ML (<125); TRIGLYCERIDES LEVEL 129 MG/DL (<150); TROPONIN I 0.06 NG/ML (< 0.10)
[2019-07-06] MEDS: AZITHROMYCIN INJ 500 MG, VIAL MATE ADAPTER 1 EACH in D5W 250 ML IV SCH (17:53)
[2019-07-06 18:02] LABS: HIV 1&2 SCREEN CENTAUR NEGATIVE (NEGATIVE)
[2019-07-06] MEDS: HumaLOG INSULIN (NovoLOG) PER UNIT SC SCH (18:07)
[2019-07-06] MEDS: METOPROLOL SUCC (TopROL XL) 50MG **XL** TAB PO SCH (18:08)
[2019-07-06] MEDS: COMBIVENT RESPIMAT 100-20MCG INHALER 4GM INH SCH (20:00)
[2019-07-06] MEDS ORDERED: cefTRIAXone SOD 1 GM in D5W MINI-BAG PLUS 50 ML IV SCH (20:00)
[2019-07-06 21:41] VITALS: BP 151/83
[2019-07-06] MEDS: HYDROXYCHLOROQUINE 200 MG TAB PO SCH (22:22)
[2019-07-06] MEDS: ENOXAPARIN 80MG/0.8ML SYRINGE (J1650 PER 10MG) SC SCH (22:23)
[2019-07-07] VITALS (8 sets, daily range): BP systolic 107–144; BP diastolic 58–88; O2SAT 96
[2019-07-07] MEDS: COMBIVENT RESPIMAT 100-20MCG INHALER 4GM INH SCH ×4 (01:47→20:20)
[2019-07-07 05:12] LABS: BASO % 0.4 % (0.0-1.0); EOS % 0.7 % (0.0-3.0); HEMOGLOBIN 14.2 g/dl (13.5-17.5); LYMPH # 1.3 10^3/uL (1.5-5.0); LYMPH % 22.8 % (24.0-44.0); MEAN CORPUSCULAR HGB CONC 32.3 g/dl (32.0-36.5); MEAN CORPUSCULAR VOLUME 86.6 fl (80.0-96.0); MONO # 0.6 10^3/uL (0.0-0.8); MONO % 11.2 % (0.0-5.0); NEUTROPHILS # 3.6 10^3/uL (1.5-8.5); NEUTROPHILS % 64.5 % (36.0-66.0); PLATELET COUNT, AUTOMATED 160 10^3/uL (150-450); RED BLOOD COUNT 5.08 10^6/uL (4.30-6.10); WHITE BLOOD COUNT 5.5 10^3/uL (4.0-10.0)
[2019-07-07 05:23] LABS: INR 1.02; PROTHROMBIN TIME 13.1 SECONDS (11.8-14.0)
[2019-07-07 05:27] LABS: D-DIMER QUANT 527.11 ng/ml (<500)
[2019-07-07 05:38] LABS: BILIRUBIN,TOTAL 0.5 MG/DL (0.2-1.0); C REACTIVE PROTEIN QUANTITATIV 4.86 MG/DL (0.00-0.30); CALCIUM LEVEL 8.7 MG/DL (8.5-10.1); CREATININE FOR GFR 1.32 MG/DL (0.70-1.30); GLOMERULAR FILTRATION RATE 59.9 (>56); POTASSIUM SERUM 4.4 MEQ/L (3.5-5.1); TOTAL PROTEIN 6.6 GM/DL (6.4-8.2); TROPONIN I 0.05 NG/ML (< 0.10)
[2019-07-07] MEDS: amLODIPine 5 MG TAB PO SCH (09:00)
[2019-07-07] MEDS ORDERED: SPIRONOLACTONE 25 MG TAB PO SCH (09:00)
[2019-07-07] MEDS: ATORVASTATIN 20 MG TAB PO SCH (09:25)
[2019-07-07] MEDS: HYDROXYCHLOROQUINE 200 MG TAB PO SCH ×2 (09:26→21:48)
[2019-07-07] MEDS: FUROSEMIDE 20 MG TAB PO SCH (09:27)
[2019-07-07] MEDS: ENOXAPARIN 80MG/0.8ML SYRINGE (J1650 PER 10MG) SC SCH ×2 (09:28→21:48)
[2019-07-07] MEDS: HumaLOG INSULIN (NovoLOG) PER UNIT SC SCH ×4 (09:29→21:00)
[2019-07-07] MEDS: LEVEMIR (INSULIN DETEMIR) 1 UNITS/0.01ML SC SCH (09:29)
[2019-07-07] MEDS: LOSARTAN 50 MG TAB PO SCH (09:30)
[2019-07-07] MEDS: NS 1,000 ML IV SCH (09:30)
--- NOTE | 2019-07-07 11:52 | ECGEPIP ---
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 Slightly different limb lead position from 07/04/19. Electronically Signed on 07-07-2019 11:51:35 EDT by Ben Thornton
--- NOTE | 2019-07-07 16:29 | IPNPDOC ---
Date Seen The patient was seen on 07/07/19. Progress Note SUBJECTIVE: The patient was placed on 2 L nasal cannula throughout the evening; however, the patient has obstructive sleep apnea, he likely drops O2 sats nightly at baseline. When awake he is sitting up at the bedside chair and has no increased shortness of breath. He is saturating 9093% on RA. The patient denies chest pain, fevers, chills but continues to have a productive cough with white sputum. OBJECTIVE: VITAL SIGNS: Please see below PHYSICAL EXAMINATION: CONSTITUTIONAL: No acute distress, sitting up at bedside, AAO x 3 EYES: PERRLA, EOM intact, corrective lenses in place HENT, MOUTH: Increased diameter of neck, normocephalic, atraumatic, moist mucous membranes, NECK: SUPPLE, no JVD, no lymphadenopathy, no carotid bruit CV: Regular rate and rhythm, S1S2 normal, no murmurs/rubs/gallops RESPIRATORY: Decreased breath sounds bilaterally, no rales/rhonchi/wheezes GI: obese abdomen, BS positive in 4 quadrants, soft, nontender, nondistended, no rebound or guarding, no organomegaly : Deferred MUSCULOSKELETAL: Normal ROM. No cyanosis, clubbing, swelling, joint deformity, nonpitting edema bilaterally INTEGUMENTARY: Skin changes on bilateral lower ext, Intact, no rashes, no lesions, no erythema NEUROLOGIC: Cranial Nerves II-XII are intact, no focal deficits PSYCHIATRIC: Mood and affect are normal LABORATORY DATA: Please see below IMAGING: No new imaging ASSESSMENT: The patient is a 54-year-old male admitted for right upper and lower lung pneumonia, positive SARS-CoV-2. PLAN: 1. Confirmed COVID-19 infection, pneumonia. RUL and RLL infiltrates likely viral as procalcitonin neg x 3, possibility of bacterial coinfection low. BCx x2 sets NG at 24 hrs, HIV neg. Increased CRP to 4.86 with BNP, fibrinogen, d-dimer improving. Saturating 90-93% on RA without worsening symptoms. QTc <500 on ECG this AM. C/w hydroxychloroquine 400 mg by mouth twice a day 1 day then 200 mg by mouth daily 4 days and azithromycin 500 mg IV Q24H. Enoxaparin 0.5 mg/kg BID. Incentive spirometer Q2 hrs while awake, OOBTC and OOB with meals. Contact and droplet precautions initiated. Continue with supportive care and Q4H O2 monitoring. As per protocol follow-up CRP, CBC with differential, ferritin, LDH, BNP, troponin, d-dimer, fibrinogen, PT/PTT every 12 hours, daily ECG, telemetry. F/u IL-6, sputum cx. 2. Acute kidney injury likely prerenal etiology. Started very gentle IVFs, stopped spironolactone. F/u BMP in AM and stop IVFs as soon as we can. 3. Strep pharyngitis. Completed 8 days oral amoxicillin, another 2 days of IV ceftriaxone to complete 10 day treatment course. 4. DM type II. BS elevated, started levemir 8 units QAM, ISS, AC/HS finger sticks, consistent carb diet. . 5. HLD. C/w statin. 6. Vitamin D deficiency. C/w weekly supplementation. 7. HTN. Stable. Stopped spironolactone but c/w others. Resume when TAVARES resolves. 8. LAURO. Does not use nightly CPAP yet due to not having gone for testing. Use O2 HS PRN. 9. Bilateral carotid stenosis. Stable. 10. Morbid obesity. BMI 49.6. 11. DVT px. Enoxaparin BID. DISPOSITION: Currently admitted under inpatient status. Plan is for discharge home when medically improved. VS, I&O, 24H, Bee Vital Signs/I&O Vital Signs Date Time Temp Pulse Resp B/P (MAP) Pulse Ox O2 Delivery O2 Flow Rate FiO2 07/07/19 14:40 86 18 109/67 (81) 92 Room Air 07/07/19 11:38 98.8 07/07/19 08:04 2.0 I&O- Last 24 Hours up to 6 AM 07/07/19 06:00 Intake Total 720 ml Output Total 0 ml Balance 720 ml Laboratory Data 24H LABS Laboratory Tests 2 07/06/19 16:23: 07/06/19 17:58: Bedside Glucose (Misc Panel) 199H 07/06/19 22:26: Bedside Glucose (Misc Panel) 189H 07/07/19 04:59: Immature Granulocyte % (Auto) 0.4, Neutrophils (%) (Auto) 64.5, Lymphocytes (%) (Auto) 22.8L, Monocytes (%) (Auto) 11.2H, Eosinophils (%) (Auto) 0.7, Basophils (%) (Auto) 0.4, Neutrophils # (Auto) 3.6, Lymphocytes # (Auto) 1.3L, Monocytes # (Auto) 0.6, Eosinophils # (Auto) 0.0, Basophils # (Auto) 0.0, Nucleated Red Blood Cells % (auto) 0.0, Prothrombin Time 13.1, Prothromb Time International Ratio 1.02, Activated Partial Thromboplast Time 36.0, Fibrinogen 600H, D-Dimer, Quantitative 527.11H, Anion Gap 5L, Glomerular Filtration Rate 59.9, Calcium Level 8.7, Ferritin 292, Total Bilirubin 0.5, Aspartate Amino Transf (AST/SGOT) 27, Alanine Aminotransferase (ALT/SGPT) 40, Alkaline Phosphatase 76, Lactate Dehydrogenase 182, Troponin I 0.05, C-Reactive Protein, Quantitative 4.86H, BA-Bna-Q-Type Natriuretic Peptide 94, Total Protein 6.6, Albumin 3.0L, Albumin/Globulin Ratio 0.83L, Procalcitonin 0.07 CBC/BMP Laboratory Tests 07/07/19 04:59 Microbiology Microbiology 07/06/19 Blood Culture - Preliminary, Resulted No growth after 24 hours . All specim... 07/06/19 Blood Culture - Preliminary, Resulted No growth after 24 hours . All specim... Current Medications Current Medications Medications (Trade) Dose Ordered Sig/Jessica Route PRN Reason Start Time Stop Time Status Last Admin Dose Admin Acetaminophen (Tylenol Tab) 650 mg Q6HP PRN PO PAIN / FEVER 07/06/19 16:30 07/07/19 05:21 Albuterol Sulfate (Proventil, Ventolin Hfa) 2 puff Q2HP PRN INH SHORTNESS OF BREATH 07/06/19 16:00 Albuterol Sulfate (Proventil, Ventolin Hfa) 4 puff Q20M INH 07/06/19 13:15 07/06/19 13:56 DC 07/06/19 13:41 Albuterol/ Ipratropium (Combivent Respimat 100-20mcg) 1 puff RQ6H INH 07/06/19 20:00 07/07/19 13:11 Amlodipine Besylate (Norvasc) 5 mg DAILY PO 07/07/19 09:00 Atorvastatin Calcium (Lipitor) 80 mg DAILY PO 07/07/19 09:00 07/07/19 09:25 Azithromycin (Zithromax Tab) 500 mg DAILY PO 07/06/19 09:00 Cancel Azithromycin 500 mg/IV Miscellaneous Supplies 1 each/ Dextrose 255 ml @ 255 mls/hr Q24H IV 07/06/19 18:00 07/06/19 17:53 Ceftriaxone Sodium 1 gm/ Dextrose 50 ml @ 100 mls/hr Q24H IV 07/06/19 20:00 07/07/19 16:23 DC 07/06/19 20:31 Dextrose (Dextrose 50%) 25 ml ASDIRECTED PRN IV SEE LABEL COMMENTS 07/06/19 16:30 Enoxaparin Sodium (Lovenox) 80 mg Q12H SC 07/06/19 21:00 07/07/19 09:28 Furosemide (Lasix) 20 mg DAILY PO 07/07/19 09:00 07/07/19 09:27 Glucagon (Glucagon) 1 mg ASDIRECTED PRN SC SEE LABEL COMMENTS 07/06/19 16:30 Glucose (Glucose) 16 GM ASDIRECTED PRN PO SEE LABEL COMMENTS 07/06/19 16:30 Home Med (Med Rec Complete!) ASDIRECTED XX 07/06/19 15:15 07/06/19 15:14 DC Hydroxychloroquine Sulfate (Plaquenil) 200 mg BID PO 07/07/19 21:00 07/11/19 09:01 Hydroxychloroquine Sulfate (Plaquenil) 400 mg BID PO 07/06/19 21:00 07/07/19 09:01 DC 07/07/19 09:26 Insulin Detemir (Levemir Insulin) 8 units QAM SC 07/07/19 09:00 07/07/19 09:29 Insulin Human Lispro (HumaLOG INSULIN) SEE PROTOCOL TABLE AC SC 07/06/19 17:30 07/07/19 11:36 Losartan Potassium (Cozaar) 50 mg DAILY PO 07/07/19 09:00 07/07/19 09:30 Metoprolol Succinate (TopROL XL) 50 mg QPM@1600 PO 07/06/19 16:00 07/06/19 18:08 Sodium Chloride 1,000 ml @ 60 mls/hr [id number] IV 07/07/19 09:00 07/07/19 09:30 Spironolactone (Aldactone) 25 mg QAM PO 07/07/19 09:00 07/07/19 09:26 Vitamin D (Drisdol) 50,000 units @ PO 07/09/19 09:00 Allergies Coded Allergies: morphine (Verified Adverse Reaction, Mild, Vomiting, 06/28/19) Keesha Jimenez MD Jul 07, 2019 16:29
[2019-07-07 16:38] LABS: BASO % 0.2 % (0.0-1.0); EOS # 0.1 10^3/uL (0.0-0.5); EOS % 0.9 % (0.0-3.0); HEMATOCRIT 43.3 % (42.0-52.0); HEMOGLOBIN 14.2 g/dl (13.5-17.5); LYMPH # 1.2 10^3/uL (1.5-5.0); MEAN CORPUSCULAR HEMOGLOBIN 27.9 pg (27.0-33.0); MEAN CORPUSCULAR HGB CONC 32.8 g/dl (32.0-36.5); MEAN CORPUSCULAR VOLUME 85.1 fl (80.0-96.0); MONO # 0.5 10^3/uL (0.0-0.8); MONO % 8.3 % (0.0-5.0); NEUTROPHILS # 3.6 10^3/uL (1.5-8.5); NEUTROPHILS % 67.2 % (36.0-66.0); PLATELET COUNT, AUTOMATED 181 10^3/uL (150-450); RED BLOOD COUNT 5.09 10^6/uL (4.30-6.10); WHITE BLOOD COUNT 5.4 10^3/uL (4.0-10.0)
[2019-07-07] MEDS: METOPROLOL SUCC (TopROL XL) 50MG **XL** TAB PO SCH (16:41)
[2019-07-07 16:56] LABS: INR 1.14; PROTHROMBIN TIME 14.3 SECONDS (11.8-14.0)
[2019-07-07 16:59] LABS: D-DIMER QUANT 498.33 ng/ml (<500)
[2019-07-07 17:07] LABS: C REACTIVE PROTEIN QUANTITATIV 5.12 MG/DL (0.00-0.30); TROPONIN I 0.05 NG/ML (< 0.10)
[2019-07-07] MEDS: AZITHROMYCIN INJ 500 MG, VIAL MATE ADAPTER 1 EACH in D5W 250 ML IV SCH (18:02)
[2019-07-08] VITALS (7 sets, daily range): BP systolic 107–128; BP diastolic 58–73; O2SAT 96–97
[2019-07-08] MEDS: NS 1,000 ML IV SCH (00:42)
[2019-07-08] MEDS: COMBIVENT RESPIMAT 100-20MCG INHALER 4GM INH SCH ×4 (01:15→19:56)
[2019-07-08 05:13] LABS: BASO % 0.2 % (0.0-1.0); EOS % 0.6 % (0.0-3.0); HEMATOCRIT 42.3 % (42.0-52.0); HEMOGLOBIN 13.9 g/dl (13.5-17.5); LYMPH # 1.4 10^3/uL (1.5-5.0); MEAN CORPUSCULAR HEMOGLOBIN 28.2 pg (27.0-33.0); MEAN CORPUSCULAR HGB CONC 32.9 g/dl (32.0-36.5); MEAN CORPUSCULAR VOLUME 85.8 fl (80.0-96.0); MONO # 0.5 10^3/uL (0.0-0.8); MONO % 9.3 % (0.0-5.0); NEUTROPHILS # 3.1 10^3/uL (1.5-8.5); NEUTROPHILS % 62.5 % (36.0-66.0); PLATELET COUNT, AUTOMATED 163 10^3/uL (150-450); RED BLOOD COUNT 4.93 10^6/uL (4.30-6.10)
[2019-07-08 05:25] LABS: INR 1.15; PROTHROMBIN TIME 14.4 SECONDS (11.8-14.0)
[2019-07-08 05:26] LABS: PARTIAL THROMBOPLASTIN TIME 38.6 SECONDS (25.0-38.4)
[2019-07-08 05:28] LABS: D-DIMER QUANT 574.56 ng/ml (<500)
[2019-07-08 05:40] LABS: ALBUMIN 2.9 GM/DL (3.2-5.2); ALT/SGPT 36 U/L (12-78); BILIRUBIN,TOTAL 0.5 MG/DL (0.2-1.0); BLOOD UREA NITROGEN 18 MG/DL (7-18); C REACTIVE PROTEIN QUANTITATIV 4.97 MG/DL (0.00-0.30); CALCIUM LEVEL 8.4 MG/DL (8.5-10.1); CARBON DIOXIDE LEVEL 26 MEQ/L (21-32); CHLORIDE LEVEL 104 MEQ/L (98-107); CREATININE FOR GFR 1.01 MG/DL (0.70-1.30); FERRITIN 289 NG/ML (26-388); GLOMERULAR FILTRATION RATE > 60.0 (>56); GLUCOSE, FASTING 142 MG/DL (70-100); LDH LACTATE DEHYDROGENASE 201 U/L (87-241); NT-PRO BNP 38 PG/ML (<125); POTASSIUM SERUM 4.1 MEQ/L (3.5-5.1); SODIUM LEVEL 136 MEQ/L (136-145); TOTAL PROTEIN 6.4 GM/DL (6.4-8.2); TROPONIN I 0.05 NG/ML (< 0.10)
[2019-07-08] MEDS: HumaLOG INSULIN (NovoLOG) PER UNIT SC SCH ×4 (07:30→20:04)
[2019-07-08] MEDS: LOSARTAN 50 MG TAB PO SCH (09:30)
[2019-07-08] MEDS: HYDROXYCHLOROQUINE 200 MG TAB PO SCH ×2 (09:31→20:07)
[2019-07-08] MEDS: ATORVASTATIN 20 MG TAB PO SCH (09:31)
[2019-07-08] MEDS: FUROSEMIDE 20 MG TAB PO SCH (09:32)
[2019-07-08] MEDS: amLODIPine 5 MG TAB PO SCH (09:32)
[2019-07-08] MEDS: ENOXAPARIN 80MG/0.8ML SYRINGE (J1650 PER 10MG) SC SCH ×2 (09:33→20:07)
[2019-07-08] MEDS: LEVEMIR (INSULIN DETEMIR) 1 UNITS/0.01ML SC SCH (09:33)
--- NOTE | 2019-07-08 11:58 | IPNPDOC ---
Date Seen The patient was seen on 07/08/19. Progress Note SUBJECTIVE: Patient denies worsening symptoms; however, on 2 L NC ATC today. Drops to low 90's without O2. The patient denies chest pain, fevers, chills but continues to have a productive cough with white sputum. OBJECTIVE: VITAL SIGNS: Please see below PHYSICAL EXAMINATION: CONSTITUTIONAL: No acute distress, sitting up at bedside, AAO x 3 EYES: PERRLA, EOM intact, corrective lenses in place HENT, MOUTH: Increased diameter of neck, normocephalic, atraumatic, moist mucous membranes, NECK: SUPPLE, no JVD, no lymphadenopathy, no carotid bruit CV: Regular rate and rhythm, S1S2 normal, no murmurs/rubs/gallops RESPIRATORY: Decreased breath sounds bilaterally, no rales/rhonchi/wheezes GI: obese abdomen, BS positive in 4 quadrants, soft, nontender, nondistended, no rebound or guarding, no organomegaly : Deferred MUSCULOSKELETAL: Normal ROM. No cyanosis, clubbing, swelling, joint deformity, nonpitting edema bilaterally INTEGUMENTARY: Skin changes on bilateral lower ext, Intact, no rashes, no lesions, no erythema NEUROLOGIC: Cranial Nerves II-XII are intact, no focal deficits PSYCHIATRIC: Mood and affect are normal LABORATORY DATA: Please see below Microbiology: Sputum cx: Sputum culture not performed due to oropharyngeal contamination. BCx NG IMAGING: No new imaging ASSESSMENT: The patient is a 54-year-old male admitted for right upper and lower lung pneumonia, positive SARS-CoV-2. PLAN: 1. Confirmed COVID-19 infection, pneumonia. RUL and RLL infiltrates likely viral as procalcitonin neg x 3, possibility of bacterial coinfection low. BCx x2 sets NG at 24 hrs, HIV neg. Decreased CRP to 4.97, ferritin at 289. DDimer, fibrinogen slightly more elevated. QTc <500 on ECG this AM. C/w hydroxychloroquine 400 mg by mouth twice a day 1 day then 200 mg by mouth daily 4 days and azithromycin 500 mg IV Q24H. Enoxaparin 0.5 mg/kg BID. Incentive spirometer Q2 hrs while awake, OOBTC and OOB with meals. Contact and droplet precautions initiated. Continue with supportive care and Q4H O2 monitoring. As per protocol follow-up CRP, CBC with differential, ferritin, LDH, BNP, troponin, d-dimer, fibrinogen, PT/PTT every 12 hours, daily ECG, telemetry. IL-6 pending. 2. Acute kidney injury likely prerenal etiology. Resolved. IVFS stopped. Keep off spironolactone for another 24 then consider restarting. 3. Strep pharyngitis. Treated-8 days oral amoxicillin, another 2 days of IV ceftriaxone to complete 10 day treatment course. 4. DM type II. BS better controlled. C/w levemir 8 units QAM, ISS, AC/HS finger sticks, consistent carb diet. 5. HLD. C/w statin. 6. Vitamin D deficiency. C/w weekly supplementation. 7. HTN. Stable. Stopped spironolactone but c/w others. Resume in 24 hours. 8. LAURO. Does not use nightly CPAP yet due to not having gone for testing. 9. Bilateral carotid stenosis. Stable. 10. Morbid obesity. BMI 49.6. 11. DVT px. Enoxaparin BID. DISPOSITION: The patient is currently on 2 L around the clock, increased from just 2 L at bedtime. If the patient is clinically stable but may be requiring oxygen, without severely worsening numbers, there is still may be a need to be cautious at this time. Will discuss with discharge planning team tomorrow. Plan is for discharge home when medically improved. VS, I&O, [facility] Vital Signs/I&O Vital Signs Date Time Temp Pulse Resp B/P (MAP) Pulse Ox O2 Delivery O2 Flow Rate FiO2 07/08/19 09:32 75 121/70 07/08/19 09:00 2.0 07/08/19 08:00 97.0 18 95 Nasal Cannula I&O- Last 24 Hours up to 6 AM 07/08/19 06:00 Intake Total 2460 ml Output Total 1100 ml Balance 1360 ml Laboratory Data 24H LABS Laboratory Tests 2 07/07/19 16:27: Immature Granulocyte % (Auto) 0.4, Neutrophils (%) (Auto) 67.2H, Lymphocytes (%) (Auto) 23.0L, Monocytes (%) (Auto) 8.3H, Eosinophils (%) (Auto) 0.9, Basophils (%) (Auto) 0.2, Neutrophils # (Auto) 3.6, Lymphocytes # (Auto) 1.2L, Monocytes # (Auto) 0.5, Eosinophils # (Auto) 0.1, Basophils # (Auto) 0.0, Nucleated Red Blood Cells % (auto) 0.0, Prothrombin Time 14.3H, Prothromb Time International Ratio 1.14, Activated Partial Thromboplast Time 35.0, Fibrinogen 565H, D-Dimer, Quantitative 498.33, Ferritin 315, Lactate Dehydrogenase 200, Troponin I 0.05, C-Reactive Protein, Quantitative 5.12H, QL-Xkb-[id number]-Type Natriuretic Peptide 49 07/07/19 16:37: Bedside Glucose (Misc Panel) 163H 07/07/19 21:47: Bedside Glucose (Misc Panel) 130H 07/08/19 05:00: Immature Granulocyte % (Auto) 0.4, Neutrophils (%) (Auto) 62.5, Lymphocytes (%) (Auto) 27.0, Monocytes (%) (Auto) 9.3H, Eosinophils (%) (Auto) 0.6, Basophils (% ) (Auto) 0.2, Neutrophils # (Auto) 3.1, Lymphocytes # (Auto) 1.4L, Monocytes # (Auto) 0.5, Eosinophils # (Auto) 0.0, Basophils # (Auto) 0.0, Nucleated Red Blood Cells % (auto) 0.0, Prothrombin Time 14.4H, Prothromb Time International Ratio 1.15, Activated Partial Thromboplast Time 38.6H, Fibrinogen 598H, D-Dimer, Quantitative 574.56H, Ferritin 289, Lactate Dehydrogenase 201, Troponin I 0.05, C-Reactive Protein, Quantitative 4.97H, MU-Ovx-[id number]-Type Natriuretic Peptide 38, Anion Gap 6L, Glomerular Filtration Rate > 60.0, Calcium Level 8.4L, Total Bilirubin 0.5, Aspartate Amino Transf (AST/SGOT) 26, Alanine Aminotransferase (ALT/SGPT) 36, Alkaline Phosphatase 70, Total Protein 6.4, Albumin 2.9L, A lbumin/Globulin Ratio 0.83L CBC/BMP Laboratory Tests 07/07/19 16:27 07/08/19 05:00 Microbiology Microbiology 07/07/19 Gram Stain - Final, Complete 07/07/19 Sputum Culture - Final, Complete 07/06/19 Blood Culture - Preliminary, Resulted No growth after 24 hours . All specim... 07/06/19 Blood Culture - Preliminary, Resulted No growth after 24 hours . All specim... Current Medications Current Medications Medications (Trade) Dose Ordered Sig/Jessica Route PRN Reason Start Time Stop Time Status Last Admin Dose Admin Acetaminophen (Tylenol Tab) 650 mg Q6HP PRN PO PAIN / FEVER 07/06/19 16:30 07/07/19 05:21 Albuterol Sulfate (Proventil, Ventolin Hfa) 2 puff Q2HP PRN INH SHORTNESS OF BREATH 07/06/19 16:00 Albuterol Sulfate (Proventil, Ventolin Hfa) 4 puff Q20M INH 07/06/19 13:15 07/06/19 13:56 DC 07/06/19 13:41 Albuterol/ Ipratropium (Combivent Respimat 100-20mcg) 1 puff RQ6H INH 07/06/19 20:00 07/08/19 08:04 Amlodipine Besylate (Norvasc) 5 mg DAILY PO 07/07/19 09:00 07/08/19 09:32 Atorvastatin Calcium (Lipitor) 80 mg DAILY PO 07/07/19 09:00 07/08/19 09:31 Azithromycin (Zithromax Tab) 500 mg DAILY PO 07/06/19 09:00 Cancel Azithromycin 500 mg/IV Miscellaneous Supplies 1 each/ Dextrose 255 ml @ 255 mls/hr Q24H IV 07/06/19 18:00 07/07/19 18:02 Ceftriaxone Sodium 1 gm/ Dextrose 50 ml @ 100 mls/hr Q24H IV 07/06/19 20:00 07/07/19 16:23 DC 07/06/19 20:31 Dextrose (Dextrose 50%) 25 ml ASDIRECTED PRN IV SEE LABEL COMMENTS 07/06/19 16:30 Enoxaparin Sodium (Lovenox) 80 mg Q12H SC 07/06/19 21:00 07/08/19 09:33 Furosemide (Lasix) 20 mg DAILY PO 07/07/19 09:00 07/08/19 09:32 Glucagon (Glucagon) 1 mg ASDIRECTED PRN SC SEE LABEL COMMENTS 07/06/19 16:30 Glucose (Glucose) 16 GM ASDIRECTED PRN PO SEE LABEL COMMENTS 07/06/19 16:30 Home Med (Med Rec Complete!) ASDIRECTED XX 07/06/19 15:15 07/06/19 15:14 DC Hydroxychloroquine Sulfate (Plaquenil) 200 mg BID PO 07/07/19 21:00 07/11/19 09:01 07/08/19 09:31 Hydroxychloroquine Sulfate (Plaquenil) 400 mg BID PO 07/06/19 21:00 07/07/19 09:01 DC 07/07/19 09:26 Insulin Detemir (Levemir Insulin) 8 units QAM SC 07/07/19 09:00 07/08/19 09:33 Insulin Human Lispro (HumaLOG INSULIN) SEE PROTOCOL TABLE AC SC 07/06/19 17:30 07/07/19 18:44 Insulin Human Lispro (HumaLOG INSULIN) See Protocol Table QHS SC 07/07/19 21:00 Losartan Potassium (Cozaar) 50 mg DAILY PO 07/07/19 09:00 07/08/19 09:30 Metoprolol Succinate (TopROL XL) 50 mg QPM@1600 PO 07/06/19 16:00 07/07/19 16:41 Sodium Chloride 1,000 ml @ 60 mls/hr [id number] IV 07/07/19 09:00 07/08/19 00:42 Spironolactone (Aldactone) 25 mg QAM PO 07/07/19 09:00 07/07/19 16:51 DC 07/07/19 09:26 Vitamin D (Drisdol) 50,000 units Mo@09 PO 07/09/19 09:00 Allergies Coded Allergies: morphine (Verified Adverse Reaction, Mild, Vomiting, 06/28/19) Keesha Jimenez MD Jul 08, 2019 11:58
[2019-07-08] MEDS: METOPROLOL SUCC (TopROL XL) 50MG **XL** TAB PO SCH (15:33)
[2019-07-08 16:29] LABS: BASO % 0.2 % (0.0-1.0); EOS # 0.1 10^3/uL (0.0-0.5); EOS % 1.1 % (0.0-3.0); HEMATOCRIT 41.7 % (42.0-52.0); HEMOGLOBIN 13.7 g/dl (13.5-17.5); LYMPH # 1.1 10^3/uL (1.5-5.0); MEAN CORPUSCULAR HEMOGLOBIN 28.2 pg (27.0-33.0); MEAN CORPUSCULAR HGB CONC 32.9 g/dl (32.0-36.5); MONO # 0.4 10^3/uL (0.0-0.8); MONO % 9.2 % (0.0-5.0); NEUTROPHILS # 3.1 10^3/uL (1.5-8.5); NEUTROPHILS % 66.1 % (36.0-66.0); PLATELET COUNT, AUTOMATED 163 10^3/uL (150-450); RED BLOOD COUNT 4.85 10^6/uL (4.30-6.10); WHITE BLOOD COUNT 4.7 10^3/uL (4.0-10.0)
[2019-07-08 16:39] LABS: INR 1.04; PROTHROMBIN TIME 13.3 SECONDS (11.8-14.0)
[2019-07-08 16:40] LABS: PARTIAL THROMBOPLASTIN TIME 33.5 SECONDS (25.0-38.4)
[2019-07-08 16:42] LABS: D-DIMER QUANT 449.83 ng/ml (<500)
[2019-07-08 16:57] LABS: C REACTIVE PROTEIN QUANTITATIV 4.61 MG/DL (0.00-0.30); TROPONIN I 0.05 NG/ML (< 0.10)
[2019-07-08] MEDS: AZITHROMYCIN INJ 500 MG, VIAL MATE ADAPTER 1 EACH in D5W 250 ML IV SCH (17:46)
[2019-07-09] VITALS: BP 126/58; O2SAT 93
[2019-07-09] MEDS: COMBIVENT RESPIMAT 100-20MCG INHALER 4GM INH SCH ×3 (02:00→13:58)
[2019-07-09 04:00] VITALS: BP 136/72
[2019-07-09 04:50] LABS: BASO % 0.2 % (0.0-1.0); EOS # 0.1 10^3/uL (0.0-0.5); EOS % 1.5 % (0.0-3.0); HEMOGLOBIN 13.4 g/dl (13.5-17.5); LYMPH # 1.3 10^3/uL (1.5-5.0); LYMPH % 27.9 % (24.0-44.0); MEAN CORPUSCULAR HEMOGLOBIN 28.5 pg (27.0-33.0); MEAN CORPUSCULAR HGB CONC 32.7 g/dl (32.0-36.5); MONO # 0.5 10^3/uL (0.0-0.8); MONO % 10.8 % (0.0-5.0); NEUTROPHILS # 2.7 10^3/uL (1.5-8.5); NEUTROPHILS % 59.2 % (36.0-66.0); PLATELET COUNT, AUTOMATED 165 10^3/uL (150-450); RED BLOOD COUNT 4.71 10^6/uL (4.30-6.10); WHITE BLOOD COUNT 4.6 10^3/uL (4.0-10.0)
[2019-07-09 05:07] LABS: INR 1.05; PROTHROMBIN TIME 13.4 SECONDS (11.8-14.0)
[2019-07-09 05:12] LABS: D-DIMER QUANT 310.35 ng/ml (<500)
[2019-07-09 05:13] LABS: ALBUMIN 2.8 GM/DL (3.2-5.2); ALT/SGPT 37 U/L (12-78); BILIRUBIN,TOTAL 0.5 MG/DL (0.2-1.0); BLOOD UREA NITROGEN 17 MG/DL (7-18); CALCIUM LEVEL 8.6 MG/DL (8.5-10.1); CARBON DIOXIDE LEVEL 28 MEQ/L (21-32); CHLORIDE LEVEL 105 MEQ/L (98-107); CREATININE FOR GFR 1.14 MG/DL (0.70-1.30); GLOMERULAR FILTRATION RATE > 60.0 (>56); GLUCOSE, FASTING 163 MG/DL (70-100); POTASSIUM SERUM 3.9 MEQ/L (3.5-5.1); SODIUM LEVEL 141 MEQ/L (136-145); TOTAL PROTEIN 7.1 GM/DL (6.4-8.2)
[2019-07-09 05:15] LABS: C REACTIVE PROTEIN QUANTITATIV 4.4 MG/DL (0.00-0.30); TROPONIN I 0.04 NG/ML (< 0.10)
[2019-07-09 06:27] VITALS: O2SAT 95
[2019-07-09 08:00] VITALS: BP 121/72; O2SAT 96
[2019-07-09] MEDS: LEVEMIR (INSULIN DETEMIR) 1 UNITS/0.01ML SC SCH (08:14)
[2019-07-09] MEDS: HYDROXYCHLOROQUINE 200 MG TAB PO SCH (08:14)
[2019-07-09] MEDS: HumaLOG INSULIN (NovoLOG) PER UNIT SC SCH ×2 (08:14→12:03)
[2019-07-09] MEDS: FUROSEMIDE 20 MG TAB PO SCH (08:14)
[2019-07-09 08:15] VITALS: BP 136/72
[2019-07-09] MEDS: LOSARTAN 50 MG TAB PO SCH (08:15)
[2019-07-09] MEDS: amLODIPine 5 MG TAB PO SCH (08:15)
[2019-07-09] MEDS: ATORVASTATIN 20 MG TAB PO SCH (08:15)
[2019-07-09] MEDS: ENOXAPARIN 80MG/0.8ML SYRINGE (J1650 PER 10MG) SC SCH (08:16)
[2019-07-09] MEDS ORDERED: VITAMIN D 50,000 UNITS CAPSULE (ERGOCALCIFEROL 1.25MG) PO SCH (09:00)
--- NOTE | 2019-07-09 10:14 | NOCOX ---
DATE OF STUDY: Done the night of 07/08/2019 into the morning of 07/09/2019. Study initially performed on room air and then placed on 2 liters nasal cannula. Study of excellent technical quality. Large amounts of artifact are noted. Mean oxygen saturation for the study 95.4%. The largest reliably recorded oxygen saturation 85%. In the early portion of the study a decline in the oxygen saturation. It remained less than 88% for greater than 5 minutes. Saturations did improve to greater than 88% on 2 liters and actually stayed better than 90% for the majority of the night. Some periods of artifact were still noted. IMPRESSION: Oxygen desaturations below 88% for greater than 5 minutes palliated with 2 liters nasal cannula oxygen. Please correlate clinically.
[2019-07-09 12:00] VITALS: BP 136/74; O2SAT 94
[2019-07-09] MEDS ORDERED: VENTAER INH (12:33)
[2019-07-09] MEDS ORDERED: AZIT-12 PO (12:33)
[2019-07-09] MEDS ORDERED: HYDR200T3 PO ×2 (12:33→12:58)
--- NOTE | 2019-07-09 21:13 | DS.PDOC ---
Discharge Summary General Date of Admission Jul 06, 2019 at 15:50 Date of Discharge 07/09/19 Primary Care Physician: Neo Ferreira MD Attending Physician: Keesha Jimenez MD Discharge Summary HISTORY OF PRESENT ILLNESS: The patient is a 54-year-old male past medical history of recent diagnosis COVID-19 (06/28/19), morbid obesity, hypertension, hyperlipidemia, obstructive sleep apnea, diabetes mellitus type 2 who presented to [facility] emergency room after having worsening shortness of breath and cough over the past 8 days. The patient states he had an exposure to a positive COVID + patient at the end of May 2019. On 06/28/2019, the patient presented to ER with increased SOB, nonbloody diarrhea x 3 days, sore throat, nonproductive cough and chest tightness. CXR that day was neg, labs were unremarkable. He was diagnosed with Strep pharyngitis and test for COVID-19 that day, discharged home with amoxicillin x 10 days. On 07/01/19 he was called at home and told he tested positive for COVID-19. He states he continued to have worsening cough, shortness of breath worsened with activity or when laying flat. He returned to ER on 07/04/19 for continued symptoms but with CXR neg and saturating 94% on RA, he was discharged home to continue monitor symptoms. He continued to have fevers at home, RR 20-28, 93% on RA per patient. He returned back to the ER on 07/06/2019 with worsening symptoms, including a now productive cough yielding white sputum. The patient states he is no longer able to lay in bed as he was before due to his cough worsening and his shortness of breath more severe. Chest x-ray today shows likely minimal infiltrate in the right upper and lower lungs. When compared to the chest x-ray on 07/04/2019 this is new. Other worsened labs include CRP 3.7 from 1.7, d-dimer 598 from 483, fibrinogen 683, lymphocytes are low on differential of CBC. LDH 199, lactic acid 1.9, ABG showed pH 7.42/41.8/98.4/26.9. The patient was saturating well without moving at 94% on room air; however, would drop down to 91% on RA with movement inside the room with nursing staff. Pro-calcitonin, BNP, IL-6 were pending. The patient states t he diarrhea he was having for the 8 days prior to today has resolved. Both the patient's and daughter are COVID- 19 positive. The patient was admitted under inpatient status for worsening shortness of breath secondary to right lobe pneumonia, positive SARS-CoV-2. HOSPITAL COURSE: The patient was placed on 2 L nasal cannula throughout the evening all nights that he was admitted. He was noted to stay between 9396 % O2 during the day on room air. The patient received hydroxychloroquine and azithromycin. It was noted that throughout his hospitalization there was a decrease in CRP, d-dimer, fibrinogen. Pro-calcitonin remained low. Blood cultures showed no growth at 48 hours and sputum culture did not grow anything significant. Troponin and BNP either remained normal or improved. The patient had a nocturnal oximetry study which showed oxygen desaturations below 88% for greater than 5 minutes palliated with 2 liters nasal cannula oxygen. It was decided on 07/09/2019 discharge the patient home with nighttime oxygen. He'll be discharged with additional 2 days of azithromycin and hydroxychloroquine. He will need close monitoring by public health and his primary care provider's office. He is to remain quarantined and his home while he continues to heal. He is also instructed that if he should have any worsening symptoms he should come back immediately to the emergency room or call 911. The patient currently denies chest pain, fevers, chills, increased shortness of breath at discharge. REVIEW OF SYSTEMS: CONSTITUTIONAL: Denies unexplained weight gain or weight loss, loss of appetite, fever, night sweats EYES: Denies eye drainage, eye pain, visual changes, dry/irritated eye EARS, NOSE, MOUTH, THROAT: Denies difficulty hearing, ringing in ears, mouth sores, loose teeth, sore throat, facial numbness or pain, inability to smelling or tasting NECK: Denies swollen glands CARDIOVASCULAR: Denies irregular heartbeat, racing heart, chest pains, swelling of feet or legs, pain in legs with walking RESPIRATORY: Denies night sweats, wheezing, oxygen at home, coughing up blood, cough lasting > 1 month GASTROINTESTINAL: Denies abdominal pain, constipation, bloody stool, diarrhea, heartburn, nausea, vomiting GENITOURINARY: Denies painful urination, bloody urine, frequent urination, urgency, leaking urine, impotence MUSCULOSKELETAL: Denies joint pain, muscle pain, leg swelling INTEGUMENTARY: Denies rash, itching, new skin lesion, change in existing skin lesion, hair loss or increase, breast changes. NEUROLOGICAL: Denies headaches, dizziness, difficulty walking, numbness or tingling PSYCHIATRIC: Denies depression, anxiety, recurrent bad thoughts, mood swings, hallucinations PAST MEDICAL HISTORY: 1. Hypertension 2. Hyperlipidemia 3. Morbid obesity 4. Obstructive sleep apnea, does not use CPAP 5. Diabetes mellitus type 2 6. History of lower extremity cellulitis 7. Recent diagnosis of strep pharyngitis 8. Bilateral carotid stenosis (greater than 90% on right side, greater than 75% on the left side) 9. SARS-CoV-2 positive 06/28/19 PAST SURGICAL HISTORY: 1. Cardiac catheterization 2. Right knee surgery FAMILY HISTORY: Father: Congestive heart failure, at 72 years old Mother: Diabetes mellitus type 2, at 62 years old Brother #1diabetes mellitus type 2, alive Brother #2diabetes mellitus type 2, alive Sr. #1diabetes mellitus type 2, alive Sr. #2diabetes mellitus type 2, alive SOCIAL HISTORY: The patient was a prior smoker of over 15 years, quit several years ago. Drinks alcohol socially, denies history of illicit drug use. PCPDr. Ferreira, [facility]. The patient ambulates independently. He does not have a healthcare proxy or living well. He is a full code. ALLERGIES: Morphineadverse reaction nausea/vomiting HOME MEDICATIONS: Please see below. PHYSICAL EXAMINATION: CONSTITUTIONAL: No acute distress, sitting up at bedside chair, AAO x 3 EYES: PERRLA, EOM intact, corrective lenses in place HENT, MOUTH: Increased diameter of neck, normocephalic, atraumatic, moist mucous membranes, NECK: SUPPLE, no JVD, no lymphadenopathy, no carotid bruit CV: Regular rate and rhythm, S1S2 normal, no murmurs/rubs/gallops RESPIRATORY: improved breath sounds bilaterally but decreased, no rales/rhonchi /wheezes GI: obese abdomen, BS positive in 4 quadrants, soft, nontender, nondistended, no rebound or guarding, no organomegaly : Deferred MUSCULOSKELETAL: Normal ROM. No cyanosis, clubbing, swelling, joint deformity, nonpitting edema bilaterally INTEGUMENTARY: Skin changes on bilateral lower ext, Intact, no rashes, no lesions, no erythema NEUROLOGIC: Cranial Nerves II-XII are intact, no focal deficits PSYCHIATRIC: Mood and affect are normal LABORATORY DATA: Please see below Microbiology: Sputum cx: Sputum culture not performed due to oropharyngeal contamination. BCx NG IMAGING: Chest x-ray 07/04/2019: No acute disease Chest x-ray 07/06/2019: Possible minimal infiltrates in the right upper and lower lungs ASSESSMENT: The patient is a 54-year-old male admitted for right upper and lower lung pneumonia, positive SARS-CoV-2. PLAN: 1. Confirmed COVID-19 infection, pneumonia. RUL and RLL infiltrates likely viral as procalcitonin neg x 3, possibility of bacterial coinfection low. BCx x2 sets NG at 48 hrs, HIV neg. Decreased CRP, d-dimer, fibrinogen. QTc <500 on ECG this AM. C/w hydroxychloroquine 200 mg by mouth BID and azithromycin 250 mg PO daily x 2 additional days (completes 5 days total). The patient is encouraged to be out of bed with meals and whenever possible. He is to remain quarantined and his home for the remainder of his illness. He is instructed that if he should have worsening symptoms similar to what he had before that he should come to the emergency room or call 911. The patient will be followed up by [facility] and also his PCPs office after discharge. 2. Acute kidney injury likely prerenal etiology. Resolved. 3. Strep pharyngitis. Treated 8 days oral amoxicillin, another 2 days of IV ceftriaxone-complete 10 day treatment course. 4. DM type II. C/w home regimen, AC/HS finger sticks, consistent carb diet. 5. HLD. C/w statin. 6. Vitamin D deficiency. C/w weekly supplementation. 7. HTN. Stable. C/w home meds. 8. LAURO. Does not use nightly CPAP yet due to not having gone for testing. Nocturnal oximetry testing showed need for nightly O2. C/w 2 L NC during evening. 9. Bilateral carotid stenosis. Stable. 10. Morbid obesity. BMI 49.6. DISPOSITION: The patient will be discharged home with close follow-up with PCP and public health. [facility] was notified of his discharge today. As instructed, the patient should report back to the emergency room or call 911 for worsening symptoms. Vital Signs/I&Os Vital Signs Date Time Temp Pulse Resp B/P (MAP) Pulse Ox O2 Delivery O2 Flow Rate FiO2 07/09/19 12:00 2.0 07/09/19 12:00 94 Room Air 07/09/19 12:00 98.0 74 22 136/74 (94) I&O- Last 24 Hours up to 6 AM 07/09/19 06:00 Intake Total 1020 ml Output Total 1000 ml Balance 20 ml Laboratory Data Labs 24H Laboratory Tests 2 07/09/19 04:15: Immature Granulocyte % (Auto) 0.4, Neutrophils (%) (Auto) 59.2, Lymphocytes (%) (Auto) 27.9, Monocytes (%) (Auto) 10.8H, Eosinophils (%) (Auto) 1.5, Basophils (%) (Auto) 0.2, Neutrophils # (Auto) 2.7, Lymphocytes # (Auto) 1.3L, Monocytes # (Auto) 0.5, Eosinophils # (Auto) 0.1, Basophils # (Auto) 0.0, Nucleated Red Blood Cells % (auto) 0.0, Prothrombin Time 13.4, Prothromb Time International Ratio 1.05, Activated Partial Thromboplast Time 37.0, Fibrinogen 507H, D-Dimer, Quantitative 310.35, Anion Gap 8, Glomerular Filtration Rate > 60.0, Calcium Level 8.6, Ferritin 280, Total Bilirubin 0.5, Aspartate Amino Transf (AST/SGOT) 28, Alanine Aminotransferase (ALT/SGPT) 37, Alkaline Phosphatase 73, Lactate Dehydrogenase 254H, Troponin I 0.04, C-Reactive Protein, Quantitative 4.40H, PQ-Izl-[id number]-Type Natriuretic Peptide 41, Total Protein 7.1, Albumin 2.8L, Albumin/Globulin Ratio 0.65L, Procalcitonin 0.06 07/09/19 11:59: Bedside Glucose (Misc Panel) 149H CBC/BMP Laboratory Tests 07/09/19 04:15 FSBS Laboratory Tests Test 07/09/19 11:59 Range/Units Bedside Glucose (Misc Panel) 149 70-105 MG/DL Microbiology Microbiology 07/07/19 Gram Stain - Final, Complete 07/07/19 Sputum Culture - Final, Complete 07/06/19 Blood Culture - Preliminary, Resulted No Growth after 72 hours. All specime... 07/06/19 Blood Culture - Preliminary, Resulted No Growth after 72 hours. All specime... Discharge Medications Scheduled Amlodipine Besylate (Amlodipine Besylate) 5 Mg Tablet, 5 MG PO DAILY, (Reported) Atorvastatin Calcium (Atorvastatin Calcium) 80 Mg Tablet, 80 MG PO DAILY, (Reported) Azithromycin (Azithromycin) 250 Mg Tablet, 250 MG PO DAILY Ergocalciferol (Vitamin D2) (Vitamin D2) 50,000 Units Cap, 50,000 UNITS PO 1XWK, (Reported) TUESDAY MORNING Furosemide (Furosemide) 20 Mg Tablet, 20 MG PO DAILY, (Reported) Hydroxychloroquine Sulfate (Hydroxychloroquine Sulfate) 200 Mg Tablet, 200 MG PO BID for COVID 19 Losartan Potassium (Losartan Potassium) 50 Mg Tablet, 50 MG PO DAILY, (Reported) Metformin HCl (Metformin HCl) 500 Mg Tablet, 500 MG PO BID, (Reported) Metoprolol Succinate (Metoprolol Succinate) 50 Mg Tab.er.24h, 50 MG PO DAILY, (Reported) Sitagliptin Phosphate (Januvia) 100 Mg Tablet, 100 MG PO DAILY, (Reported) Scheduled PRN Acetaminophen (Acetaminophen) 325 Mg Tablet, 650 MG PO Q4H PRN for PAIN / FEVER, (Reported) Allopurinol (Allopurinol) 100 Mg Tablet, 100 MG PO QPM PRN for GOUT, (Reported) TAKES AT 1600 Methocarbamol (Methocarbamol) 500 Mg Tablet, 1,000 MG PO QHS PRN for PAIN, (Reported) Allergies Coded Allergies: morphine (Verified Adverse Reaction, Mild, Vomiting, 06/28/19) Keesha Jimenez MD Jul 09, 2019 21:13
== END 2019-07-09 14:20 | disposition home or self-care (01) | DRG 137 ==
LOC: M ED 12:40 → M ED INP 15:50 → ENRESERVDT 20:27 → ENRESERVTM 20:27 → M PCU 21:27 → M ICU 07-07 14:17
PROVIDERS: ADMIT Internal Medicine; ATTEND Internal Medicine
DX: U07.1 COVID-19 (principal); N17.9 Acute kidney failure, unspecified; Z68.42 Body mass index [BMI] 45.0-49.9, adult; J12.89 Other viral pneumonia; I10 Essential (primary) hypertension; E11.9 Type 2 diabetes mellitus without complications; J02.0 Streptococcal pharyngitis; E55.9 Vitamin D deficiency, unspecified; I65.23 Occlusion and stenosis of bilateral carotid arteries; E66.01 Morbid (severe) obesity due to excess calories; E78.5 Hyperlipidemia, unspecified; G47.33 Obstructive sleep apnea (adult) (pediatric); Z87.891 Personal history of nicotine dependence; Z79.84 Long term (current) use of oral hypoglycemic drugs; Z79.899 Other long term (current) drug therapy; Z20.828 Contact with and (suspected) exposure to other viral communicable diseases; Z87.2 Personal history of diseases of the skin and subcutaneous tissue; Z88.5 Allergy status to narcotic agent; Z11.59 Encounter for screening for other viral diseases

== ENCOUNTER → 2019-07-24 | Outpatient (CLI) | payer OTHER ==
[~2019-07-24] MED LIST changes: +APAP325T4 PO; +AZIT-12 PO; -AZITHROMYCIN 250MG TABLET PO SCH; +HYDR200T3 PO; +VENTAER INH
--- NOTE | 2019-07-24 12:31 | REP ---
CHEST, TWO VIEWS: Two views of the chest are performed. COMPARISON: 07/06/2019 as well as other prior exams. There is mild cardiomegaly. There is no acute infiltrate. There is some tortuosity and ectasia of the thoracic aorta. Mediastinal silhouette is unchanged. There are degenerative changes of the spine. IMPRESSION: No acute infiltrate. Mild cardiomegaly. Electronically Signed by Daniel Ivy MD 07/24/2019 01:04 P
--- NOTE | 2019-07-24 15:52 | ECHO ---
DATE OF STUDY: 07/24/2019 REFERRING PHYSICIAN: Davina Jones Physician [facility] INDICATION: COVID-19 respiratory infection. HEIGHT: 175 cm WEIGHT: 152 kg 2-D MEASUREMENTS: Left atrium: 4.2 cm Aortic root: 3.8 cm Ventricular septum: 1.54 cm Posterior wall: 1.45 cm Left ventricle diastole: 4.4 cm Aortic annulus: 2.0 cm DOPPLER MEASUREMENTS: No aortic regurgitation. No aortic stenosis. Aortic valve velocity: 130 cm/sec LVOT velocity: 94.7 cm/sec LVOT VTI: 23.5 cm No mitral regurgitation. No mitral stenosis. Mitral E velocity: 105 cm/sec Mitral A velocity: 101 cm/sec Mitral deceleration time: 229 ms No tricuspid regurgitation. No pulmonic regurgitation. MITRAL ANNULAR TISSUE DOPPLER: Not performed. DESCRIPTION: The rhythm was sinus. This was a technically difficult echocardiogram. No pericardial effusion. This was a 2-D, M-mode, color flow Doppler and pulsed wave Doppler examination. CONCLUSIONS: 1. Mild-moderate concentric left ventricular hypertrophy. Appearance of normal regional LV wall motion and wall thickening. Normal LV systolic function. Left ventricular ejection fraction (LVEF) 65% by visual estimate. Probably normal LV diastolic function, however, difficult for complete assessment due to absence of mitral annular tissue Doppler examination. 2. Technically difficult echocardiogram. 3. Very mild dilatation of aortic root at the level of sinus of Valsalva. 4. Very mild aortic valve sclerosis. No aortic regurgitation. 5. Normal right ventricular size and systolic function. 6. Normal appearance of atrial size.
== END ==
LOC: M CARPUL 09:28
PROVIDERS: ATTEND Physician Assistant
DX: J06.9 Acute upper respiratory infection, unspecified (principal); I51.7 Cardiomegaly

== ENCOUNTER 2019-07-27 17:26 | Emergency (ER) | payer MEDICAID, OTHER ==
[~2019-07-27] VITALS: Ht 175.3 cm; Wt 151.4 kg
[~2019-07-27 17:26] MED LIST changes: -METF-791 PO; +METF-838 PO
[2019-07-27] MEDS ORDERED: ONDANSETRON 4 MG ORAL DISINTEGRATING TAB PO ONE (17:45)
[2019-07-27] MEDS ORDERED: PERCOCET 5MG/325MG TAB PO ONE (17:45)
[2019-07-27] MEDS ORDERED: AMOX500C PO (18:03)
[2019-07-27 18:08] LABS: BASO % 0.3 % (0.0-1.0); EOS # 0.2 10^3/uL (0.0-0.5); EOS % 1.7 % (0.0-3.0); HEMATOCRIT 46.2 % (42.0-52.0); LYMPH # 1.7 10^3/uL (1.5-5.0); MEAN CORPUSCULAR HEMOGLOBIN 28.5 pg (27.0-33.0); MEAN CORPUSCULAR HGB CONC 32.5 g/dl (32.0-36.5); MEAN CORPUSCULAR VOLUME 87.7 fl (80.0-96.0); MONO # 0.8 10^3/uL (0.0-0.8); MONO % 8.2 % (0.0-5.0); NEUTROPHILS # 6.8 10^3/uL (1.5-8.5); NEUTROPHILS % 71.2 % (36.0-66.0); PLATELET COUNT, AUTOMATED 209 10^3/uL (150-450); RED BLOOD COUNT 5.27 10^6/uL (4.30-6.10); WHITE BLOOD COUNT 9.5 10^3/uL (4.0-10.0)
[2019-07-27] MEDS ORDERED: PERC5TAB12 PO (18:36)
--- NOTE | 2019-07-27 18:39 | REPVR ---
PROCEDURE INFORMATION: Exam: CT Abdomen And Pelvis Without Contrast Exam date and time: 07/27/2019 6:23 PM Age: 54 years old Clinical indication: Abdominal pain; Flank; Lower; Additional info: Flank pain TECHNIQUE: Imaging protocol: Computed tomography of the abdomen and pelvis without contrast. Radiation optimization: All CT scans at this facility use at least one of these dose optimization techniques: automated exposure control; mA and/or kV adjustment per patient size (includes targeted exams where dose is matched to clinical indication); or iterative reconstruction. COMPARISON: CT ABD PELVIS W/O CONTRAST 10/18/2017 2:30 AM FINDINGS: Lungs: Small patchy ground-glass opacities demonstrated at both lung bases of uncertain significance. Clinical correlation to exclude infection suggested. Liver: There is heterogeneous decrease in hepatic parenchymal density, consistent with steatosis. Hepatomegaly. Gallbladder and bile ducts: There is a gallstone present. No evidence of cholecystitis demonstrated. Pancreas: Normal. No ductal dilation. Spleen: Normal. No splenomegaly. Adrenals: There is bilateral adrenal hyperplasia. Kidneys and ureters: Bilateral non-obstructing renal calculi. There is a 9 mm. obstructive ureteral calculus located left UPJ resulting in moderate proximal hydroureteronephrosis. There is moderate periureteral and perinephric stranding. No urinoma demonstrated. Stomach and bowel: Unremarkable. No obstruction. No mucosal thickening. Appendix: No evidence of appendicitis. Intraperitoneal space: Unremarkable. No free air. No significant fluid collection. Vasculature: The aorta demonstrates mild atherosclerotic calcification. Lymph nodes: 11 mm right common iliac and 6 mm left external iliac lymph nodes of uncertain significance. Also noted are scattered subcentimeter retroperitoneal lymph nodes. Bladder: Unremarkable as visualized. Reproductive: The prostate gland demonstrates mild hyperplasia. Bones/joints: Moderate to severe central spinal stenosis at L4-L5 secondary to a posterior disc protrusion. Soft tissues: There is a large umbilical hernia. There is no evidence of incarceration. IMPRESSION: 1. Small patchy ground-glass opacities demonstrated at both lung bases of uncertain significance. Clinical correlation to exclude infection suggested. 2. There is heterogeneous decrease in hepatic parenchymal density, consistent with steatosis. Hepatomegaly. 3. There is a gallstone present. No evidence of cholecystitis demonstrated. 4. There is bilateral adrenal hyperplasia. 5. Bilateral non-obstructing renal calculi. 6. There is a 9 mm. obstructive ureteral calculus located left UPJ resulting in moderate proximal hydroureteronephrosis. There is moderate periureteral and perinephric stranding. No urinoma demonstrated. 7. Mild prostatic hyperplasia. Electronically signed by: Nic Valera On 07/27/2019 18:39:24 PM
[2019-07-27 19:11] VITALS: BP 170/90
[2019-07-27] MEDS ORDERED: OXYCODONE/APAP 5MG/325MG(BULK FOR ED) 1 TABLET PO ONE (19:15)
--- NOTE | 2019-07-28 08:12 | ED PDOC ---
Post-Departure Follow-Up dr trujillo faxed formal report of ct abd/p for fu Jaciel Ware MD July 28, 2019 08:12
== END 2019-07-27 19:22 | disposition home or self-care (01) ==
LOC: M ED 17:26
DX: N20.1 Calculus of ureter (principal); I10 Essential (primary) hypertension; E11.9 Type 2 diabetes mellitus without complications; E78.5 Hyperlipidemia, unspecified; G47.33 Obstructive sleep apnea (adult) (pediatric); E66.9 Obesity, unspecified; Z68.42 Body mass index [BMI] 45.0-49.9, adult; Z87.891 Personal history of nicotine dependence; Z86.19 Personal history of other infectious and parasitic diseases; Z87.442 Personal history of urinary calculi; Z88.5 Allergy status to narcotic agent; Z79.899 Other long term (current) drug therapy; Z79.84 Long term (current) use of oral hypoglycemic drugs
CPT/HCPCS: 36415; 74176; 80047; 81001; 85025; 99284; Q0162; U0002

== ENCOUNTER → 2019-08-03 | Outpatient (REF) | payer MEDICAID, OTHER ==
[~2019-08-03] MED LIST changes: +ASPI81TA85 PO; +KEFL500C17 PO; +PERC5TAB12 PO
== END ==
LOC: M SHH 12:54 → M SFHCPLAZ 12:54
PROVIDERS: ATTEND Internal Medicine Infectious Disease
DX: Z11.59 Encounter for screening for other viral diseases (principal)

== ENCOUNTER → 2019-08-08 | Outpatient (CLI) | payer MEDICAID ==
[2019-08-08 09:33] LABS: HEMATOCRIT 43.3 % (42.0-52.0); HEMOGLOBIN 14.3 g/dl (13.5-17.5); MEAN CORPUSCULAR HEMOGLOBIN 28.4 pg (27.0-33.0); MEAN CORPUSCULAR VOLUME 86.1 fl (80.0-96.0); PLATELET COUNT, AUTOMATED 203 10^3/uL (150-450); RED BLOOD COUNT 5.03 10^6/uL (4.30-6.10)
[2019-08-08 09:43] LABS: INR 1.06; PROTHROMBIN TIME 13.5 SECONDS (11.8-14.0)
[2019-08-08 09:44] LABS: PARTIAL THROMBOPLASTIN TIME 29.9 SECONDS (25.0-38.4)
[2019-08-08 09:53] LABS: APPEARANCE, URINE CLEAR (CLEAR); BACTERIA, URINE AUTO NEGATIVE (NEGATIVE); BILIRUBIN, URINE AUTO NEGATIVE (NEGATIVE); BLOOD, URINE BLOOD NEGATIVE (NEGATIVE); COLOR, URINE YELLOW (YELLOW); GLUCOSE, URINE (UA) AUTO NEGATIVE (NEGATIVE); KETONE, URINE AUTO NEGATIVE (NEGATIVE); LEUKOCYTE ESTERASE, URINE AUTO TRACE (NEGATIVE); NITRITE, URINE AUTO NEGATIVE (NEGATIVE); PROTEIN, URINE AUTO 1+ mg/dL (NEGATIVE); RBC, URINE AUTO 2 /HPF (0-3); SPECIFIC GRAVITY URINE AUTO 1.019 (1.002-1.035); SQUAMOUS EPITHELIAL CELL UR AU 0 /HPF (0-6); UROBILINOGEN, URINE AUTO 0.2 mg/dL (0.0-2.0); WBC, URINE AUTO 4 /HPF (0-3)
[2019-08-08 09:57] LABS: CALCIUM LEVEL 9.5 MG/DL (8.5-10.1); CREATININE FOR GFR 1.98 MG/DL (0.70-1.30); GLOMERULAR FILTRATION RATE 37.5 (>56); POTASSIUM SERUM 4.7 MEQ/L (3.5-5.1)
--- NOTE | 2019-08-08 10:30 | REP ---
CHEST, TWO VIEWS: Two views of the chest are performed. COMPARISON: 07/24/2019 There are no acute infiltrates and no change since the prior study. There is mild cardiomegaly. There is some ectasia and tortuosity of the thoracic aorta. Mediastinal silhouette is unchanged. There are degenerative changes of the spine. IMPRESSION: No active pulmonary disease. Mild cardiomegaly. Electronically Signed by Daniel Ivy MD 08/08/2019 12:48 P
== END ==
LOC: M LAB 08:45
PROVIDERS: ATTEND Nurse Practitioner Family
DX: Z01.818 Encounter for other preprocedural examination (principal); I51.7 Cardiomegaly; N13.2 Hydronephrosis with renal and ureteral calculous obstruction

== ENCOUNTER 2019-08-10 18:16 | Emergency (ER) | payer MEDICAID ==
[~2019-08-10] VITALS: Ht 172.7 cm; Wt 152.5 kg
[~2019-08-10 18:16] MED LIST changes: -ASPI81TA85 PO; -KEFL500C17 PO
[2019-08-10] MEDS ORDERED: NS 1,000 ML IV SCH (18:24)
[2019-08-10] MEDS ORDERED: ASPI81TA85 PO (18:30)
[2019-08-10 19:43] LABS: BASO # 0.1 10^3/uL (0.0-0.2); BASO % 0.5 % (0.0-1.0); EOS # 0.2 10^3/uL (0.0-0.5); EOS % 1.6 % (0.0-3.0); HEMATOCRIT 42.9 % (42.0-52.0); HEMOGLOBIN 13.9 g/dl (13.5-17.5); LYMPH # 1.3 10^3/uL (1.5-5.0); LYMPH % 11.9 % (24.0-44.0); MEAN CORPUSCULAR HEMOGLOBIN 27.9 pg (27.0-33.0); MEAN CORPUSCULAR HGB CONC 32.4 g/dl (32.0-36.5); MEAN CORPUSCULAR VOLUME 86.1 fl (80.0-96.0); MONO # 0.8 10^3/uL (0.0-0.8); MONO % 7.4 % (0.0-5.0); NEUTROPHILS # 8.7 10^3/uL (1.5-8.5); NEUTROPHILS % 77.9 % (36.0-66.0); PLATELET COUNT, AUTOMATED 199 10^3/uL (150-450); RED BLOOD COUNT 4.98 10^6/uL (4.30-6.10); WHITE BLOOD COUNT 11.2 10^3/uL (4.0-10.0)
[2019-08-10 20:04] LABS: ALBUMIN 3.5 GM/DL (3.2-5.2); BILIRUBIN,DIRECT 0.1 MG/DL (0.0-0.2); BILIRUBIN,TOTAL 0.4 MG/DL (0.2-1.0); TOTAL PROTEIN 7.7 GM/DL (6.4-8.2)
[2019-08-10 20:20] LABS: INR 1.07; PROTHROMBIN TIME 13.6 SECONDS (11.8-14.0)
[2019-08-10] MEDS ORDERED: dexameTHASONE 20MG/5ML VIAL (J1100 PER 1MG) IV ONE (20:45)
[2019-08-10] MEDS ORDERED: cefTRIAXone SOD 1 GM in D5W MINI-BAG PLUS 50 ML IV ONE (21:15)
[2019-08-10] MEDS ORDERED: KEFL500C17 PO (21:20)
[2019-08-10 22:02] VITALS: BP 160/88
== END 2019-08-10 22:12 | disposition home or self-care (01) ==
LOC: M ED 18:16
DX: L03.116 Cellulitis of left lower limb (principal); N18.3 Chronic kidney disease, stage 3 (moderate); I10 Essential (primary) hypertension; E78.5 Hyperlipidemia, unspecified; F41.9 Anxiety disorder, unspecified; F43.10 Post-traumatic stress disorder, unspecified; E66.9 Obesity, unspecified; Z79.899 Other long term (current) drug therapy; Z79.82 Long term (current) use of aspirin; Z79.84 Long term (current) use of oral hypoglycemic drugs; Z88.5 Allergy status to narcotic agent
CPT/HCPCS: 80047; 80076; 81001; 83605; 83690; 84550; 85025; 85610; 87040; 96361; 96365; 96375; 99284; J0696; J1100

== ENCOUNTER → 2019-08-13 | Outpatient (CLI) | payer MEDICAID ==
[~2019-08-13] MED LIST changes: +ASPI81TA85 PO; +KEFL500C17 PO
[2019-08-13 10:52] LABS: AMORPHOUS SEDIMENT SMALL (NEGATIVE); APPEARANCE, URINE CLEAR (CLEAR); BACTERIA, URINE AUTO NEGATIVE (NEGATIVE); BILIRUBIN, URINE AUTO NEGATIVE (NEGATIVE); BLOOD, URINE BLOOD NEGATIVE (NEGATIVE); COLOR, URINE YELLOW (YELLOW); GLUCOSE, URINE (UA) AUTO 2+ mg/dL (NEGATIVE); KETONE, URINE AUTO NEGATIVE (NEGATIVE); LEUKOCYTE ESTERASE, URINE AUTO NEGATIVE (NEGATIVE); NITRITE, URINE AUTO NEGATIVE (NEGATIVE); PROTEIN, URINE AUTO NEGATIVE (NEGATIVE); RBC, URINE AUTO 1 /HPF (0-3); SPECIFIC GRAVITY URINE AUTO 1.013 (1.002-1.035); SQUAMOUS EPITHELIAL CELL UR AU 0 /HPF (0-6); UROBILINOGEN, URINE AUTO 0.2 mg/dL (0.0-2.0); WBC, URINE AUTO 4 /HPF (0-3)
[2019-08-13 11:20] LABS: BASO # 0.1 10^3/uL (0.0-0.2); BASO % 0.7 % (0.0-1.0); EOS # 0.3 10^3/uL (0.0-0.5); EOS % 3.5 % (0.0-3.0); HEMATOCRIT 43.7 % (42.0-52.0); HEMOGLOBIN 13.9 g/dl (13.5-17.5); LYMPH # 1.8 10^3/uL (1.5-5.0); LYMPH % 21.1 % (24.0-44.0); MEAN CORPUSCULAR HEMOGLOBIN 27.6 pg (27.0-33.0); MEAN CORPUSCULAR HGB CONC 31.8 g/dl (32.0-36.5); MEAN CORPUSCULAR VOLUME 86.7 fl (80.0-96.0); MONO # 0.7 10^3/uL (0.0-0.8); MONO % 8.1 % (0.0-5.0); NEUTROPHILS # 5.7 10^3/uL (1.5-8.5); NEUTROPHILS % 65.2 % (36.0-66.0); PLATELET COUNT, AUTOMATED 228 10^3/uL (150-450); RED BLOOD COUNT 5.04 10^6/uL (4.30-6.10); WHITE BLOOD COUNT 8.7 10^3/uL (4.0-10.0)
[2019-08-13 11:40] LABS: ALBUMIN 3.4 GM/DL (3.2-5.2); CALCIUM LEVEL 9.3 MG/DL (8.5-10.1); CREATININE FOR GFR 1.59 MG/DL (0.70-1.30); GLOMERULAR FILTRATION RATE 48.4 (>56); PHOSPHORUS LEVEL 3.2 MG/DL (2.5-4.9); POTASSIUM SERUM 4.7 MEQ/L (3.5-5.1)
== END ==
LOC: M LAB 08:40
PROVIDERS: ATTEND Family Medicine
DX: Z01.812 Encounter for preprocedural laboratory examination (principal)

== ENCOUNTER → 2019-08-13 | Outpatient (CLI) | payer MEDICAID, OTHER | LOC: M LABSMTC 12:14 | PROVIDERS: ATTEND Anesthesiology | DX: Z01.818 Encounter for other preprocedural examination (principal); Z11.59 Encounter for screening for other viral diseases | CPT/HCPCS: C8903; U0003 ==

== ENCOUNTER → 2019-08-16 | Outpatient (REF) | payer MEDICAID ==
[2019-08-16 16:03] LABS: CALCIUM LEVEL 9.1 MG/DL (8.5-10.1); CREATININE FOR GFR 1.8 MG/DL (0.70-1.30); GLOMERULAR FILTRATION RATE 41.9 (>56); POTASSIUM SERUM 4.6 MEQ/L (3.5-5.1); URIC ACID 5.5 MG/DL (3.5-7.2)
[2019-08-16 16:19] LABS: BASO # 0.1 10^3/uL (0.0-0.2); BASO % 0.4 % (0.0-1.0); EOS # 0.2 10^3/uL (0.0-0.5); EOS % 1.6 % (0.0-3.0); HEMATOCRIT 44.6 % (42.0-52.0); HEMOGLOBIN 14.8 g/dl (13.5-17.5); LYMPH % 17.5 % (24.0-44.0); MEAN CORPUSCULAR HEMOGLOBIN 28.3 pg (27.0-33.0); MEAN CORPUSCULAR HGB CONC 33.2 g/dl (32.0-36.5); MEAN CORPUSCULAR VOLUME 85.3 fl (80.0-96.0); MONO # 0.7 10^3/uL (0.0-0.8); MONO % 5.8 % (0.0-5.0); NEUTROPHILS # 8.3 10^3/uL (1.5-8.5); NEUTROPHILS % 74.2 % (36.0-66.0); PLATELET COUNT, AUTOMATED 272 10^3/uL (150-450); RED BLOOD COUNT 5.23 10^6/uL (4.30-6.10); WHITE BLOOD COUNT 11.2 10^3/uL (4.0-10.0)
== END ==
LOC: M PLALAB 14:00
PROVIDERS: ATTEND Family Medicine
DX: M10.9 Gout, unspecified (principal); L03.116 Cellulitis of left lower limb; N17.9 Acute kidney failure, unspecified

== ENCOUNTER → 2019-08-24 | Outpatient (CLI) | payer MEDICAID ==
[2019-08-24 11:12] LABS: BASO # 0.1 10^3/uL (0.0-0.2); BASO % 0.5 % (0.0-1.0); EOS # 0.2 10^3/uL (0.0-0.5); EOS % 1.8 % (0.0-3.0); HEMATOCRIT 44.4 % (42.0-52.0); HEMOGLOBIN 14.8 g/dl (13.5-17.5); LYMPH # 1.9 10^3/uL (1.5-5.0); LYMPH % 20.7 % (24.0-44.0); MEAN CORPUSCULAR HEMOGLOBIN 28.4 pg (27.0-33.0); MEAN CORPUSCULAR HGB CONC 33.3 g/dl (32.0-36.5); MEAN CORPUSCULAR VOLUME 85.2 fl (80.0-96.0); MONO # 0.6 10^3/uL (0.0-0.8); MONO % 6.5 % (0.0-5.0); NEUTROPHILS # 6.5 10^3/uL (1.5-8.5); NEUTROPHILS % 70.1 % (36.0-66.0); PLATELET COUNT, AUTOMATED 231 10^3/uL (150-450); RED BLOOD COUNT 5.21 10^6/uL (4.30-6.10); WHITE BLOOD COUNT 9.3 10^3/uL (4.0-10.0)
[2019-08-24 11:46] LABS: CALCIUM LEVEL 9.2 MG/DL (8.5-10.1); CREATININE FOR GFR 1.42 MG/DL (0.70-1.30); GLOMERULAR FILTRATION RATE 55.1 (>56); POTASSIUM SERUM 4.5 MEQ/L (3.5-5.1)
== END ==
LOC: M LAB 10:19
PROVIDERS: ATTEND Internal Medicine Cardiovascular Disease
DX: Z01.810 Encounter for preprocedural cardiovascular examination (principal); R06.02 Shortness of breath; I65.23 Occlusion and stenosis of bilateral carotid arteries

== ENCOUNTER → 2019-08-31 | Outpatient (CLI) | payer OTHER, MEDICAID ==
[2019-08-31 09:10] LABS: CREATININE FOR GFR 1.38 MG/DL (0.70-1.30)
== END ==
LOC: M LAB 08:18
PROVIDERS: ATTEND Internal Medicine Cardiovascular Disease
DX: I51.9 Heart disease, unspecified (principal)

== ENCOUNTER → 2019-09-04 | Outpatient (CLI) | payer OTHER ==
[2019-09-04 10:55] LABS: HEMATOCRIT 45.1 % (42.0-52.0); HEMOGLOBIN 14.9 g/dl (13.5-17.5); MEAN CORPUSCULAR HEMOGLOBIN 28.6 pg (27.0-33.0); MEAN CORPUSCULAR VOLUME 86.6 fl (80.0-96.0); PLATELET COUNT, AUTOMATED 184 10^3/uL (150-450); RED BLOOD COUNT 5.21 10^6/uL (4.30-6.10); WHITE BLOOD COUNT 7.3 10^3/uL (4.0-10.0)
[2019-09-04 11:18] LABS: CALCIUM LEVEL 9.4 MG/DL (8.5-10.1); CREATININE FOR GFR 1.51 MG/DL (0.70-1.30); GLOMERULAR FILTRATION RATE 51.3 (>56)
== END ==
LOC: M LAB 10:01
PROVIDERS: ATTEND Internal Medicine Cardiovascular Disease
DX: R06.02 Shortness of breath (principal); I25.119 Atherosclerotic heart disease of native coronary artery with unspecified angina pectoris

== ENCOUNTER → 2019-10-12 | Outpatient (CLI) | payer OTHER ==
[~2019-10-12] MED LIST changes: +ALBU8.5H INH; +AMLO1TAB24 PO; -AMLO5TAB6 PO; -ASPI81TA85 PO; +ASPI81TA86 PO; +COLA100C5 PO; +D-3-50003 PO; +EZET10TA21 PO; +HYDR-3910 PO; +LANTINJ4 SC; +OXYC1TAB23 PO; +PLAV1TAB2 PO; +TAMS1CAP17 PO
== END ==
LOC: M LABSMTC 10:54
PROVIDERS: ATTEND Anesthesiology
DX: Z01.818 Encounter for other preprocedural examination (principal); Z11.59 Encounter for screening for other viral diseases
CPT/HCPCS: C9803; U0003

== ENCOUNTER 2019-10-17 10:08 | Day surgery (SDC) | payer OTHER ==
[~2019-10-17] VITALS: Ht 175.3 cm; Wt 151.0 kg
[2019-10-17] VITALS (9 sets, daily range): BP systolic 140–157; BP diastolic 90–95; O2SAT 94
[~2019-10-17 10:08] MED LIST changes: -AMLO1TAB24 PO; +AMLO5TAB6 PO; +ASPI81TA85 PO; -ASPI81TA86 PO; +LIDOCAINE 1% MDV 20ML VIAL SQ PRN; +LIDOCAINE 2% 100MG/5ML SDV (FOR ANES.) As Ordered ONE; +LR 1,000 ML IV ONE; +MIDAZOLAM INJ 2MG/2ML VIAL (J2250 PER 1MG) As Ordered ONE; +ONDANSETRON 4MG/2ML VIAL As Ordered ONE; -OXYC1TAB23 PO; +ceFAZolin SOD 2 GM in IV 1 EA IV ONE; +dexameTHASONE 4 MG/ML 1ML VIAL (J1100 PER 1MG) As Ordered ONE; +fentaNYL 100 MCG/2 ML INJECTION (J3010) As Ordered ONE; +propofoL 200 MG/20 ML VIAL As Ordered ONE
[2019-10-17] MEDS ORDERED: CONRAY-60 60% 50ML VIAL (Q9961) As Ordered ONE (10:11)
[2019-10-17] MEDS ORDERED: HumaLOG INSULIN (NovoLOG) PER UNIT As Ordered ONE (11:07)
[2019-10-17] MEDS ORDERED: HumaLOG INSULIN (NovoLOG) PER UNIT SC ONE ×2 (11:15→14:30)
[2019-10-17] MEDS ORDERED: fentaNYL 100 MCG/2 ML INJECTION (J3010) As Ordered ONE (13:00)
--- NOTE | 2019-10-17 13:42 | REP ---
RETROGRADE PYELOGRAM: HISTORY: Cystoscopy. Left ureteroscopy. Left stent placement. 25 seconds of fluoroscopy time is reported. FINDINGS: A sequence of two last image hold fluoroscopically obtained spot radiographs of the abdomen document left ureteral cannulation, contrast injection, and stent position. Electronically Signed by Lazaro Johnson MD 10/17/2019 01:45 P
[2019-10-17] MEDS ORDERED: LR 1,000 ML IV SCH (13:45)
[2019-10-17] MEDS ORDERED: ONDANSETRON 4MG/2ML VIAL IV PRN (13:45)
[2019-10-17] MEDS: fentaNYL 100 MCG/2 ML INJECTION (J3010) IV PRN ×4 (13:50→14:30)
[2019-10-17] MEDS: oxyCODONE 5MG TAB PO PRN ×2 (13:51→14:25)
[2019-10-17] MEDS ORDERED: PERCOCET 5MG/325MG TAB PO PRN (14:00)
[2019-10-17] MEDS ORDERED: KETOROLAC 30 MG/ML 1ML VIAL As Ordered ONE (14:40)
[2019-10-17] MEDS ORDERED: GLUCOSE 4GM CHEW TABLET PO PRN (19:30)
[2019-10-17] MEDS ORDERED: DEXTROSE 50% 50 ML SYRINGE IV PRN (19:30)
[2019-10-17] MEDS ORDERED: GLUCAGON INJ 1MG VIAL SC PRN (19:30)
[2019-10-17] MEDS ORDERED: ALBUTEROL 90 MCG/ACT 8GM HFA INHALER INH PRN (19:30)
[2019-10-17] MEDS ORDERED: HYDR-3910 PO (19:40)
[2019-10-17] MEDS ORDERED: OXYC1TAB23 PO (19:40)
[2019-10-17] MEDS ORDERED: HumaLOG INSULIN (NovoLOG) PER UNIT SC SCH (21:00)
[2019-10-17] MEDS ORDERED: allopurinoL 100 MG TAB PO SCH (21:00)
[2019-10-17] MEDS: **hydrALAZINE HCL** 25 MG TAB PO SCH (21:39)
[2019-10-17] MEDS: amLODIPine 5 MG TAB PO SCH (21:39)
[2019-10-18 02:00] VITALS: BP 148/91
[2019-10-18 06:00] VITALS: BP 156/90
[2019-10-18] MEDS ORDERED: HumaLOG INSULIN (NovoLOG) PER UNIT SC SCH (07:30)
[2019-10-18 08:07] VITALS: BP 164/97
[2019-10-18] MEDS: amLODIPine 5 MG TAB PO SCH (08:07)
[2019-10-18] MEDS: **hydrALAZINE HCL** 25 MG TAB PO SCH (08:08)
--- NOTE | 2019-10-18 08:51 | IPNPDOC ---
Subjective Review oF Systems Chief Complaint The patient is a 54-year-old male admitted with a reason for visit of Bilateral Kidney Stones. Events since Last Encounter No acute events o/n. Mild left flank pain. No n/v. No f/c/ns. Objective Physical Examination General Exam: Alert, Cooperative, No Acute Distress Chest Exam: Normal air movement ABDOMEN EXAM: Soft; No: Tenderness Skin Exam: Nl turgor and temperature Neuro Exam: Normal Speech Vital Signs/I&O Vital Signs Date Time Temp Pulse Resp B/P (MAP) Pulse Ox O2 Delivery O2 Flow Rate FiO2 10/18/19 08:07 88 164/97 10/18/19 06:00 97.0 19 100 Nasal Cannula 2.0 10/17/19 13:25 100 I&O- Last 24 Hours up to 6 AM 10/18/19 06:00 Intake Total 1140 ml Output Total 600 ml Balance 540 ml Laboratory Data Labs 24H Laboratory Tests 2 10/17/19 11:01: Bedside Glucose (Misc Panel) 241H 10/17/19 13:15: 10/17/19 13:31: Bedside Glucose (Misc Panel) 225H 10/17/19 18:08: Bedside Glucose (Misc Panel) 265H 10/17/19 20:36: Bedside Glucose (Misc Panel) 376H 10/18/19 06:49: Bedside Glucose (Misc Panel) 223H FSBS Laboratory Tests Test 10/17/19 11:01 10/17/19 13:31 10/17/19 18:08 10/17/19 20:36 Range/Units Bedside Glucose (Misc Panel) 241 225 265 376 70-105 MG/DL Test 10/18/19 06:49 Range/Units Bedside Glucose (Misc Panel) 223 70-105 MG/DL Assessment/Plan Date Seen The patient was seen on 10/18/19. Patient Summary This is a 54 y/o M POD 1 s/p cysto, L ureteroscopy w/ laser lithotripsy and basket extraction of stones, and L ureteral stent placement, admitted postop for O2 monitoring. He has been weaned off O2 and is saturating well. Plan/VTE VTE Prophylaxis Ordered?: Yes VTE Exclusion Mechanical Proph: N/A:VTE Prophy Ordered Plan - cont home meds - regular diet - discharge home today KEYSHA DAVIS MD Oct 18, 2019 08:51
[2019-10-18 09:00] VITALS: O2SAT 95
[2019-10-18] MEDS ORDERED: CLOPIDOGREL 75 MG TAB PO SCH (09:00)
[2019-10-18] MEDS ORDERED: METOPROLOL SUCC (TopROL XL) 50MG **XL** TAB PO SCH (09:00)
[2019-10-18] MEDS ORDERED: ATORVASTATIN 20 MG TAB PO SCH (09:00)
[2019-10-18] MEDS ORDERED: FUROSEMIDE 20 MG TAB PO SCH (09:00)
[2019-10-18] MEDS ORDERED: ASPIRIN 81 MG ENTERIC TAB PO SCH (09:00)
[2019-10-18 10:00] VITALS: BP 140/70
[2019-10-18] MEDS ORDERED: TAMSULOSIN 0.4 MG CAP PO SCH (21:00)
[2019-11-12 14:44] LABS: CA Oxalate Dihy 10 % (.); Ca Ox Monohydrate 90 % (.); Size 6x4 mm (.)
== END 2019-10-18 10:50 | disposition home or self-care (01) ==
LOC: M SDC 10:08 → ENRESERVTM 15:34 → ENRESERVDT 15:34 → M MSPAV 15:52 → M SDC 10-18 10:50
PROVIDERS: ATTEND Urology
DX: N20.0 Calculus of kidney (principal); N13.2 Hydronephrosis with renal and ureteral calculous obstruction; I10 Essential (primary) hypertension; E78.2 Mixed hyperlipidemia; F41.9 Anxiety disorder, unspecified; R21 Rash and other nonspecific skin eruption; M10.9 Gout, unspecified; E11.69 Type 2 diabetes mellitus with other specified complication; Z79.82 Long term (current) use of aspirin; Z79.4 Long term (current) use of insulin; Z79.899 Other long term (current) drug therapy; E55.9 Vitamin D deficiency, unspecified; K76.0 Fatty (change of) liver, not elsewhere classified; I65.23 Occlusion and stenosis of bilateral carotid arteries; Z98.61 Coronary angioplasty status; I25.2 Old myocardial infarction; G47.33 Obstructive sleep apnea (adult) (pediatric); Z88.5 Allergy status to narcotic agent; E66.01 Morbid (severe) obesity due to excess calories; F43.10 Post-traumatic stress disorder, unspecified; R06.02 Shortness of breath; N40.1 Benign prostatic hyperplasia with lower urinary tract symptoms
CPT/HCPCS: 52356; 74420; 82365; 88300; C1769; C1894; C2617; J0690; J1100; J2250; J2405; J3010; Q9961

== ENCOUNTER → 2019-11-16 | Outpatient (REF) | payer OTHER ==
[~2019-11-16] MED LIST changes: +AMLO1TAB24 PO; -AMLO5TAB6 PO; -ASPI81TA85 PO; +ASPI81TA86 PO; -LIDOCAINE 1% MDV 20ML VIAL SQ PRN; -LIDOCAINE 2% 100MG/5ML SDV (FOR ANES.) As Ordered ONE; -LR 1,000 ML IV ONE; -MIDAZOLAM INJ 2MG/2ML VIAL (J2250 PER 1MG) As Ordered ONE; -ONDANSETRON 4MG/2ML VIAL As Ordered ONE; +OXYC1TAB23 PO; -ceFAZolin SOD 2 GM in IV 1 EA IV ONE; -dexameTHASONE 4 MG/ML 1ML VIAL (J1100 PER 1MG) As Ordered ONE; -fentaNYL 100 MCG/2 ML INJECTION (J3010) As Ordered ONE; -propofoL 200 MG/20 ML VIAL As Ordered ONE
[2019-11-16 19:55] LABS: BLOOD UREA NITROGEN 18 MG/DL (7-18); CREATININE FOR GFR 1.21 MG/DL (0.70-1.30); GLOMERULAR FILTRATION RATE > 60.0 (>56)
== END ==
LOC: M LAB REF 17:26
PROVIDERS: ATTEND Internal Medicine Pulmonary Disease
DX: R06.00 Dyspnea, unspecified (principal)

== ENCOUNTER → 2019-12-04 | Outpatient (CLI) | payer OTHER ==
--- NOTE | 2019-12-07 10:02 | SLEEPCENT ---
DATE: 12/04/2019 ORDERED BY: Dr. Mock Nocturnal polysomnography was performed for evaluation of sleep physiology. There was 7 hours and 13 minutes of data reviewed. There was 366 minutes of sleep identified. Sleep latency was prolonged at 46.5 minutes. REM latency was normal at 72 minutes. Sleep architecture was fairly well preserved with three REM cycles. Overall sleep efficiency was 85.6%. The patient's electrocardiogram showed a sinus rhythm with average heart rate of 72 beats per minute. Rate ranged 60-85. EEG showed reasonably normal waveforms for wake and sleep. There were 177 respiratory events identified of 10 seconds in duration or greater for an apnea-hypopnea index of 29. The events were primarily obstructive, not exclusive to sleep stage nor body posture. Arousals from respiratory events occurred 3.9 times per hour, and oxygen saturations dipped below 80%. There was minimal limb activity appreciated. IMPRESSION: Severe obstructive sleep apnea syndrome (G47.33). Apnea-hypopnea index 29. RECOMMENDATION: The patient should be encouraged to return to the sleep disorder center for pressure therapy. In the interim, alcohol and sedative avoidance should be practiced and caution exercised during the operation of motor vehicles. MTDD
== END ==
LOC: M SLEEP 20:00
PROVIDERS: ATTEND Internal Medicine Pulmonary Disease
DX: G47.33 Obstructive sleep apnea (adult) (pediatric) (principal)

== ENCOUNTER → 2019-12-07 | Outpatient (CLI) | payer OTHER ==
[~2019-12-07] MED LIST changes: +ISOVUE-370 76% 100ML VIAL As Ordered ONE
--- NOTE | 2019-12-28 09:05 | REP ---
CHEST ANGIO CT CLINICAL: Dyspnea. TECHNIQUE: Axial contrast enhanced images from the thoracic inlet to the upper abdomen with multiplanar reformations using pulmonary embolus technique, 75 cc Isovue-370 intravenous contrast material administered without complication. FINDINGS: Satisfactory enhancement of the pulmonary vasculature achieved, and no filling defects are identified to suggest pulmonary embolus. Thoracic aorta is normal and without aneurysm or dissection. Heart and pericardium are normal. The bilateral lung sahu are clear and without consolidation, effusion, or pneumothorax. No obvious suspicious nodule or mass lesion is appreciated. Lung volumes are somewhat decreased but symmetric and suggest poor inspiratory effort possibly related to patient's symptoms and dyspnea. No axillary, hilar, or mediastinal adenopathy appreciated. Tracheobronchial tree is patent. Surrounding musculoskeletal structures demonstrate age-related changes without acute osseous abnormality. IMPRESSION: * No evidence for pulmonary embolus, normal thoracic aorta. * Decreased symmetric lung volumes suggest poor inspiratory effort. * No acute mediastinal or pleuroparenchymal process. No consolidation, effusion, or pneumothorax. MTDD
== END ==
LOC: M RAD 07:57
PROVIDERS: ATTEND Internal Medicine Pulmonary Disease
DX: R06.00 Dyspnea, unspecified (principal)
CPT/HCPCS: 71275; Q9967

== ENCOUNTER → 2020-03-06 | Outpatient (CLI) | payer OTHER ==
[~2020-03-06] MED LIST changes: -ISOVUE-370 76% 100ML VIAL As Ordered ONE; +METHACHOLINE KIT (J7674) INH ONE
--- NOTE | 2020-03-06 12:59 | PFTRPT ---
Height: 65.50 Inches Weight: 335.00 Lbs BSA: 2.48 Diagnosis: R06.00 DATE: 03/06/2020 ORDERED BY: Raudel Mock D.O. QUALITY: Study of excellent technical quality. PROCEDURE: Under protocol, methacholine was administered. At a dose of 0.25 mg or 1.375 CDUs, a 22% decline in the FEV1 was noted. PC of 0.2 is significant. Flow rates did return to baseline post bronchodilator administration. IMPRESSION: Positive methacholine challenge study. MTDD
== END ==
LOC: M CARPUL 12:03
PROVIDERS: ATTEND Internal Medicine Pulmonary Disease
DX: R06.00 Dyspnea, unspecified (principal)
CPT/HCPCS: 94070; J7674

== ENCOUNTER → 2020-04-10 | Outpatient (CLI) | payer OTHER ==
[~2020-04-10] MED LIST changes: -METHACHOLINE KIT (J7674) INH ONE
[2020-04-10 11:21] LABS: ALT/SGPT 56 U/L (12-78); BLOOD UREA NITROGEN 21 MG/DL (7-18); CALCIUM LEVEL 9.3 MG/DL (8.5-10.1); CARBON DIOXIDE LEVEL 27 MEQ/L (21-32); CHLORIDE LEVEL 102 MEQ/L (98-107); CHOLESTEROL LEVEL 150 MG/DL (<200); CHOLESTEROL RISK RATIO 3.125 (<5); CPK CREATINE PHOSPHOKINASE 53 U/L (39-308); CREATININE FOR GFR 1.25 MG/DL (0.70-1.30); GLOMERULAR FILTRATION RATE > 60.0 (>56); GLUCOSE, FASTING 383 MG/DL (70-100); HDL CHOLESTEROL 48 MG/DL (>40); LDL CHOLESTEROL 87 MG/DL (<100); NON-HDL-C 102 MG/DL; POTASSIUM SERUM 4.6 MEQ/L (3.5-5.1); SODIUM LEVEL 137 MEQ/L (136-145); TRIGLYCERIDES LEVEL 75 MG/DL (<150)
== END ==
LOC: M LAB 09:53
PROVIDERS: ATTEND Physician Assistant Medical
DX: E78.49 Other hyperlipidemia (principal); I10 Essential (primary) hypertension

== ENCOUNTER → 2020-04-10 | Outpatient (CLI) | payer OTHER ==
[2020-04-10 11:21] LABS: ALBUMIN 3.6 GM/DL (3.2-5.2); ALT/SGPT 55 U/L (12-78); BILIRUBIN,TOTAL 0.7 MG/DL (0.2-1.0); BLOOD UREA NITROGEN 21 MG/DL (7-18); CALCIUM LEVEL 9.2 MG/DL (8.5-10.1); CARBON DIOXIDE LEVEL 28 MEQ/L (21-32); CHLORIDE LEVEL 101 MEQ/L (98-107); CREATININE FOR GFR 1.21 MG/DL (0.70-1.30); GLOMERULAR FILTRATION RATE > 60.0 (>56); GLUCOSE, FASTING 386 MG/DL (70-100); POTASSIUM SERUM 4.6 MEQ/L (3.5-5.1); SODIUM LEVEL 136 MEQ/L (136-145); TOTAL PROTEIN 7.1 GM/DL (6.4-8.2)
[2020-04-10 12:13] LABS: HEMOGLOBIN A1c 12.9 %
== END ==
LOC: M LAB 09:57
PROVIDERS: ATTEND Physician Assistant
DX: E11.69 Type 2 diabetes mellitus with other specified complication (principal); I10 Essential (primary) hypertension

== ENCOUNTER 2020-05-29 09:05 | Emergency (ER) | payer OTHER ==
[~2020-05-29] VITALS: Ht 175.3 cm; Wt 151.3 kg
[~2020-05-29 09:05] MED LIST changes: +METH-1164; +METH-1164 PO; -METH1TAB40; -METH1TAB40 PO
--- NOTE | 2020-05-29 09:52 | REP ---
INDICATION: CHEST PAIN COMPARISON: 08/08/2019 TECHNIQUE: Portable AP view of the chest FINDINGS: The mediastinum and cardiac silhouette are stable and within normal limits for portable technique. The lung sahu are clear without acute consolidation, effusion, or pneumothorax. Skeletal structures are intact. IMPRESSION: No acute cardiopulmonary process appreciated. <Electronically signed by Elder Copeland > 05/29/20 [id number]
[2020-05-29 10:10] LABS: BASO % 0.4 % (0.0-1.0); EOS # 0.1 10^3/uL (0.0-0.5); EOS % 1.1 % (0.0-3.0); HEMATOCRIT 51.8 % (42.0-52.0); HEMOGLOBIN 16.6 g/dl (13.5-17.5); LYMPH # 0.8 10^3/uL (1.5-5.0); LYMPH % 14.3 % (24.0-44.0); MEAN CORPUSCULAR HEMOGLOBIN 27.2 pg (27.0-33.0); MEAN CORPUSCULAR VOLUME 84.8 fl (80.0-96.0); MONO # 0.3 10^3/uL (0.0-0.8); MONO % 5.7 % (2.0-8.0); NEUTROPHILS # 4.1 10^3/uL (1.5-8.5); NEUTROPHILS % 78.1 % (36.0-66.0); PLATELET COUNT, AUTOMATED 189 10^3/uL (150-450); RED BLOOD COUNT 6.11 10^6/uL (4.30-6.10); WHITE BLOOD COUNT 5.2 10^3/uL (4.0-10.0)
[2020-05-29 10:21] LABS: INR 0.94; PROTHROMBIN TIME 12.8 SECONDS (12.5-14.3)
[2020-05-29 10:49] LABS: ALBUMIN 3.7 GM/DL (3.2-5.2); ALT/SGPT 460 U/L (12-78); AMYLASE 27 U/L (25-115); BILIRUBIN,DIRECT 1.7 MG/DL (0.0-0.2); BILIRUBIN,TOTAL 2.3 MG/DL (0.2-1.0); FREE T4 1.32 NG/DL (0.76-1.46); LIPASE 115 U/L (73-393); THYROID STIMULATING HORMONE 0.839 uIU/ML (0.358-3.740); TOTAL PROTEIN 7.4 GM/DL (6.4-8.2)
[2020-05-29] MEDS ORDERED: KETOROLAC 30 MG/ML 1ML VIAL IV ONE (11:10)
[2020-05-29] MEDS ORDERED: amLODIPine 5 MG TAB PO ONE (11:10)
[2020-05-29] MEDS ORDERED: FUROSEMIDE 20 MG TAB PO ONE (11:10)
[2020-05-29] MEDS ORDERED: **hydrALAZINE HCL** 25 MG TAB PO ONE (11:10)
[2020-05-29] MEDS ORDERED: METOPROLOL SUCC (TopROL XL) 50MG **XL** TAB PO ONE (11:10)
[2020-05-29] MEDS ORDERED: TAMSULOSIN 0.4 MG CAP PO ONE (11:15)
[2020-05-29] MEDS ORDERED: METH-1164 PO (11:19)
[2020-05-29] MEDS ORDERED: ISOS1TAB36 PO (11:19)
[2020-05-29] MEDS ORDERED: GABA-282 PO (11:19)
[2020-05-29] MEDS ORDERED: ISOSORBIDE MON. (IMDUR) 60 MG XR TAB PO ONE (11:40)
[2020-05-29 11:53] VITALS: BP 180/100
--- NOTE | 2020-05-29 11:53 | REP ---
INDICATION: ruq pain, elev lfts COMPARISON: None. TECHNIQUE: Real time sun scale ultrasound examination using curved array transducer. FINDINGS: Liver is hyperechoic with poor through transmission consistent with fatty infiltration and/or hepatocellular disease. The pancreas is incompletely evaluated due to interposed bowel gas but visualized portions appear normal. The gallbladder is normal and without gallstones, wall thickening, or pericholecystic fluid. No biliary ductal dilatation is appreciated and the common bile duct measures 6.0 mm diameter. Right kidney is normal in reniform shape without hydronephrosis and measures 11.5 x 5.8 x 6.0 cm. No ascites in the visualized right upper quadrant. IMPRESSION: Presumed fatty infiltration to the liver. <Electronically signed by Elder Copeland > 05/29/20 [id number]
[2020-05-29] MEDS ORDERED: ISOVUE-370 76% 100ML VIAL As Ordered ONE (12:01)
[2020-05-29 12:02] LABS: RSV AMPLIFICATION NEGATIVE (NEGATIVE)
[2020-05-29 12:52] LABS: HEPATITIS B SURFACE ANTIGEN NEGATIVE (NEGATIVE)
--- NOTE | 2020-05-29 13:01 | REP ---
INDICATION: elev lfts, abdl pain. COMPARISON: None TECHNIQUE: Axial contrast-enhanced images from the lung bases to the pubic symphysis using 100 cc Isovue 370 intravenous contrast material. Coronal and sagittal reformations obtained. This CT examination was performed using the following dose reduction techniques: Automated exposure control, adjustment of mA and/or kv according to the patient's size, and the use of iterative reconstruction technique. FINDINGS: Diffuse fatty infiltration to the liver noted without focal hepatic lesion. Spleen, pancreas, bilateral adrenal glands and kidneys are essentially normal. Cholelithiasis noted without acute cholecystitis. Few small incidental nonobstructing intrarenal calculi measure up to 3 mm without hydroureteronephrosis, perinephric stranding or obstructing ureteral calculus. The enteric system including stomach, small, and large bowel appears normal. No evidence for obstruction or acute inflammatory process. Normal terminal ileum and appendix are identified in the right lower quadrant. 11 cm fat containing periumbilical hernia is identified without acute inflammatory changes. Pelvis demonstrates normal bladder and age-appropriate prostate/seminal vesicles. No ascites. No free air. No intraperitoneal or retroperitoneal adenopathy. Abdominal aorta and vasculature appear normal. Musculoskeletal structures are intact and without acute osseous abnormality. Lung bases are clear. IMPRESSION: No acute abdominopelvic pathology appreciated. Hepatosteatosis. Cholelithiasis. 11 cm fat containing periumbilical hernia. <Electronically signed by Elder Copeland > 05/29/20 [id number]
[2020-05-29 13:18] LABS: HEPATITIS C VIRUS ABY INDEX < 0.0 INDEX (<0.8)
[2020-05-29 13:19] LABS: HEPATITIS B CORE ANTIBODY IGM NEGATIVE (NEGATIVE)
[2020-05-29 13:21] LABS: HEPATITIS A ANTIBODY IGM NEGATIVE (NEGATIVE)
[2020-05-29 13:32] LABS: MONO REFLEX EBV COMP NEGATIVE (NEGATIVE)
[2020-05-29 14:01] VITALS: BP 145/85
--- NOTE | 2020-05-30 08:04 | ECGEPIP ---
[facility] - ED Test Date: 2020-05-29 Pat Name: LUIS MERCADO Department: Room: - Gender: Male [employer] Operator: RELL : 1965 Requested By: Jaciel Irene Order Number: [id number] Reading MD: Dena Tesfaye Measurements Intervals [place] Rate: 88 P: 41 NH: 168 QRS: -2 QRSD: 70 T: 35 QT: 348 QTc: 421 Interpretive Statements Normal sinus rhythm increased rate 07/07/19 Electronically Signed on 05-30-2020 8:03:58 EST by Dena Tesfaye
[2020-05-30 18:07] LABS: EBV AB TO NUCLEAR ANTIGEN >600.0 U/mL (0.0-17.9); EBV VIRAL CAPSID AG IgG >600.0 U/mL (0.0-17.9); EBV VIRAL CAPSID AG IgM <36.0 U/mL (0.0-35.9)
== END 2020-05-29 14:29 | disposition home or self-care (01) ==
LOC: M ED 09:05
DX: R10.9 Unspecified abdominal pain (principal); R94.5 Abnormal results of liver function studies; K76.0 Fatty (change of) liver, not elsewhere classified; K42.9 Umbilical hernia without obstruction or gangrene; K80.80 Other cholelithiasis without obstruction; E11.9 Type 2 diabetes mellitus without complications; I50.9 Heart failure, unspecified; Z79.4 Long term (current) use of insulin; Z79.51 Long term (current) use of inhaled steroids; Z79.82 Long term (current) use of aspirin; Z79.899 Other long term (current) drug therapy; Z87.898 Personal history of other specified conditions; Z88.6 Allergy status to analgesic agent; Z95.5 Presence of coronary angioplasty implant and graft
CPT/HCPCS: 71045; 74177; 76705; 80047; 80076; 82150; 83605; 83690; 84439; 84443; 85025; 85610; 85730; 86308; 86664; 86665; 86705; 86709; 86803; 87340; 87631; 93005; 93041; 96374; 99285; J1885; Q9967

== ENCOUNTER 2020-05-30 09:05 | Emergency (ER) | payer OTHER ==
[~2020-05-30] VITALS: Ht 175.3 cm; Wt 149.6 kg
[~2020-05-30 09:05] MED LIST changes: +GABA-282 PO; +ISOS1TAB36 PO
[2020-05-30 10:24] LABS: BASO % 0.5 % (0.0-1.0); EOS # 0.1 10^3/uL (0.0-0.5); EOS % 1.8 % (0.0-3.0); HEMATOCRIT 50.7 % (42.0-52.0); HEMOGLOBIN 16.1 g/dl (13.5-17.5); LYMPH # 0.9 10^3/uL (1.5-5.0); LYMPH % 15.2 % (24.0-44.0); MEAN CORPUSCULAR HEMOGLOBIN 27.1 pg (27.0-33.0); MEAN CORPUSCULAR HGB CONC 31.8 g/dl (32.0-36.5); MEAN CORPUSCULAR VOLUME 85.4 fl (80.0-96.0); MONO # 0.3 10^3/uL (0.0-0.8); MONO % 5.8 % (2.0-8.0); NEUTROPHILS # 4.3 10^3/uL (1.5-8.5); NEUTROPHILS % 76.2 % (36.0-66.0); PLATELET COUNT, AUTOMATED 179 10^3/uL (150-450); RED BLOOD COUNT 5.94 10^6/uL (4.30-6.10); WHITE BLOOD COUNT 5.7 10^3/uL (4.0-10.0)
[2020-05-30 11:07] LABS: ALBUMIN 3.3 GM/DL (3.2-5.2); ALT/SGPT 449 U/L (12-78); AMYLASE 46 U/L (25-115); BILIRUBIN,DIRECT 0.6 MG/DL (0.0-0.2); BILIRUBIN,TOTAL 1.4 MG/DL (0.2-1.0); BLOOD UREA NITROGEN 10 MG/DL (7-18); CALCIUM LEVEL 9.3 MG/DL (8.5-10.1); CARBON DIOXIDE LEVEL 30 MEQ/L (21-32); CHLORIDE LEVEL 104 MEQ/L (98-107); CREATININE FOR GFR 1.09 MG/DL (0.70-1.30); GLOMERULAR FILTRATION RATE > 60.0 (>56); GLUCOSE, FASTING 274 MG/DL (70-100); LIPASE 315 U/L (73-393); POTASSIUM SERUM 5.3 MEQ/L (3.5-5.1); SODIUM LEVEL 137 MEQ/L (136-145); TOTAL PROTEIN 7.3 GM/DL (6.4-8.2)
[2020-05-30] MEDS ORDERED: METOPROLOL SUCC (TopROL XL) 50MG **XL** TAB PO ONE (11:35)
[2020-05-30 11:49] VITALS: BP 182/110
[2020-05-30 12:15] VITALS: BP 158/92
== END 2020-05-30 12:21 | disposition home or self-care (01) ==
LOC: M ED 09:05
DX: R74.01 Elevation of levels of liver transaminase levels (principal); E80.6 Other disorders of bilirubin metabolism; K80.20 Calculus of gallbladder without cholecystitis without obstruction; E11.9 Type 2 diabetes mellitus without complications; I11.0 Hypertensive heart disease with heart failure; I50.9 Heart failure, unspecified; J45.909 Unspecified asthma, uncomplicated; E78.5 Hyperlipidemia, unspecified; F41.9 Anxiety disorder, unspecified; E66.9 Obesity, unspecified; Z86.718 Personal history of other venous thrombosis and embolism; Z87.09 Personal history of other diseases of the respiratory system; Z79.899 Other long term (current) drug therapy; Z79.82 Long term (current) use of aspirin; Z79.4 Long term (current) use of insulin; Z79.01 Long term (current) use of anticoagulants; Z88.5 Allergy status to narcotic agent; Z87.891 Personal history of nicotine dependence

== ENCOUNTER → 2020-06-05 | Outpatient (CLI) | payer OTHER ==
--- NOTE | 2020-06-09 17:59 | SLEEPCENT ---
NOCTURNAL POLYSOMNOGRAPHY DATE: 06/05/2020 ORDERED BY: Raudel Mock D.O. Nocturnal polysomnography was performed for retitration of pressure therapy in this patient with obstructive sleep apnea syndrome using a BiLevel device. For testing a [employer] Genesis View full face mask of medium size was used, an initial pressure of inspiratory 14/expiratory 10 was applied to the circuit, and the lights were extinguished. 8 hours and 4 minutes of data were reviewed. There were 426 minutes of sleep identified. Sleep latency was short at 3 minutes. REM latency was normal at 76 minutes. Sleep architecture was good with four REM cycles. Overall sleep efficiency was 90%. The electrocardiogram showed a sinus rhythm with occasional PVCs. Average heart rate of 60 beats per minute. EEG showed normal waveforms for wake and sleep. Persistence of respiratory events prompted increases in pressure and best sleep was seen on a BiLevel device inspiratory pressure 25/expiratory pressure of 20. Remaining measures of sleep physiology were normal. IMPRESSION: Obstructive sleep apnea syndrome (G47.33). RECOMMENDATION: Nightly use of pressure therapy inspiratory 25/expiratory 20.
== END ==
LOC: M SLEEP 20:00
PROVIDERS: ATTEND Internal Medicine Pulmonary Disease
DX: G47.33 Obstructive sleep apnea (adult) (pediatric) (principal)

== ENCOUNTER → 2020-06-13 | Outpatient (REF) | payer OTHER ==
[2020-06-13 10:16] LABS: HEMATOCRIT 51.1 % (42.0-52.0); HEMOGLOBIN 16.3 g/dl (13.5-17.5); MEAN CORPUSCULAR HEMOGLOBIN 27.4 pg (27.0-33.0); MEAN CORPUSCULAR HGB CONC 31.9 g/dl (32.0-36.5); PLATELET COUNT, AUTOMATED 208 10^3/uL (150-450); RED BLOOD COUNT 5.94 10^6/uL (4.30-6.10); WHITE BLOOD COUNT 6.6 10^3/uL (4.0-10.0)
[2020-06-13 10:33] LABS: HEMOGLOBIN A1c 12.6 %
[2020-06-13 10:50] LABS: ALBUMIN 3.7 GM/DL (3.2-5.2); BILIRUBIN,TOTAL 0.7 MG/DL (0.2-1.0); CALCIUM LEVEL 9.6 MG/DL (8.5-10.1); CREATININE FOR GFR 1.36 MG/DL (0.70-1.30); GLOMERULAR FILTRATION RATE 57.7 (>56); TOTAL PROTEIN 7.3 GM/DL (6.4-8.2)
== END ==
LOC: M SFHCPLAZ 08:43
PROVIDERS: ATTEND Physician Assistant
DX: G47.33 Obstructive sleep apnea (adult) (pediatric) (principal); R74.8 Abnormal levels of other serum enzymes; E11.69 Type 2 diabetes mellitus with other specified complication

== ENCOUNTER 2020-09-04 08:23 | Emergency (ER) | payer OTHER ==
[~2020-09-04] VITALS: Ht 175.3 cm; Wt 156.2 kg
[~2020-09-04 08:23] MED LIST changes: +BACTDSTA PO; -SULF1TAB93 PO
--- NOTE | 2020-09-04 08:47 | ECGEPIP ---
[facility] - ED Test Date: 2020-09-04 Pat Name: LUIS MERCADO Department: Room: - Gender: Male Ticket Counter: WEN : 1965 Requested By: Dena Tesfaye Order Number: [id number] Reading MD: Bravo Beebe Measurements Intervals [place] Rate: 88 P: 52 DE: 176 QRS: 1 QRSD: 70 T: 42 QT: 350 QTc: 423 Interpretive Statements Normal sinus rhythm POSSIBLE INCOMPLETE RIGHT BUNDLE BRANCH BLOCK SIMILAR TO 05/29/20 Electronically Signed on 09-04-2020 8:46:49 EDT by Bravo Beebe
--- NOTE | 2020-09-04 09:12 | REP ---
INDICATION: DYSPNEA/COUGH COMPARISON: 08/08/2019 TECHNIQUE: Portable AP view of the chest FINDINGS: The mediastinum and cardiac silhouette are stable and within normal limits for portable technique. The lung sahu are clear without acute consolidation, effusion, or pneumothorax. Skeletal structures are intact. IMPRESSION: No acute cardiopulmonary process appreciated. <Electronically signed by Elder Copeland > 09/04/20 [id number]
[2020-09-04 09:29] LABS: BASO % 0.5 % (0.0-1.0); EOS # 0.2 10^3/uL (0.0-0.5); EOS % 2.4 % (0.0-3.0); HEMATOCRIT 46.1 % (42.0-52.0); HEMOGLOBIN 14.4 g/dl (13.5-17.5); LYMPH # 1.3 10^3/uL (1.5-5.0); LYMPH % 17.2 % (24.0-44.0); MEAN CORPUSCULAR HEMOGLOBIN 26.8 pg (27.0-33.0); MEAN CORPUSCULAR HGB CONC 31.2 g/dl (32.0-36.5); MEAN CORPUSCULAR VOLUME 85.7 fl (80.0-96.0); MONO # 0.6 10^3/uL (0.0-0.8); MONO % 7.5 % (2.0-8.0); NEUTROPHILS # 5.5 10^3/uL (1.5-8.5); NEUTROPHILS % 71.7 % (36.0-66.0); PLATELET COUNT, AUTOMATED 221 10^3/uL (150-450); RED BLOOD COUNT 5.38 10^6/uL (4.30-6.10); WHITE BLOOD COUNT 7.6 10^3/uL (4.0-10.0)
[2020-09-04 10:05] LABS: ALBUMIN 3.2 GM/DL (3.2-5.2); ALT/SGPT 30 U/L (12-78); BILIRUBIN,DIRECT 0.1 MG/DL (0.0-0.2); BILIRUBIN,TOTAL 0.5 MG/DL (0.2-1.0); BLOOD UREA NITROGEN 21 MG/DL (7-18); CALCIUM LEVEL 8.7 MG/DL (8.5-10.1); CARBON DIOXIDE LEVEL 30 MEQ/L (21-32); CHLORIDE LEVEL 102 MEQ/L (98-107); CREATININE FOR GFR 1.25 MG/DL (0.70-1.30); GLOMERULAR FILTRATION RATE > 60.0 (>56); GLUCOSE, FASTING 268 MG/DL (70-100); NT-PRO BNP 73 PG/ML (<125); POTASSIUM SERUM 4.4 MEQ/L (3.5-5.1); SODIUM LEVEL 138 MEQ/L (136-145); THYROID STIMULATING HORMONE 0.984 uIU/ML (0.358-3.740); TOTAL PROTEIN 6.9 GM/DL (6.4-8.2)
[2020-09-04] MEDS ORDERED: ISOVUE-370 76% 100ML VIAL As Ordered ONE (10:16)
--- NOTE | 2020-09-04 10:38 | REP ---
INDICATION: sob COMPARISON: 12/07/2019 TECHNIQUE: Axial contrast enhanced images from the thoracic inlet to the upper abdomen using pulmonary embolus technique with multiplanar re-formations. 75 ml Isovue 370 intravenous contrast material administered without complication. This CT examination was performed using the following dose reduction techniques: Automated exposure control, adjustment of mA and/or kv according to the patient's size, and use of iterative reconstruction technique. FINDINGS: Satisfactory enhancement of the pulmonary vasculature is achieved and no filling defects are identified to suggest pulmonary embolus. Further evaluation of the mediastinum demonstrates normal thoracic aorta, heart and pericardium. The bilateral lung sahu are well aerated and clear without consolidation pleural effusion or pneumothorax. Tracheobronchial tree is patent. No nodule or mass lesion is identified. No adenopathy noted. Surrounding musculoskeletal structures intact IMPRESSION: No evidence for pulmonary embolus. No acute mediastinal or pleural parenchymal process. <Electronically signed by Elder Copeland > 09/04/20 1038
[2020-09-04 12:15] VITALS: BP 146/85
== END 2020-09-04 12:53 | disposition home or self-care (01) ==
LOC: M ED 08:23
DX: R06.00 Dyspnea, unspecified (principal); E11.9 Type 2 diabetes mellitus without complications; E78.5 Hyperlipidemia, unspecified; I25.2 Old myocardial infarction; J45.909 Unspecified asthma, uncomplicated; Z86.16 Personal history of COVID-19; Z87.891 Personal history of nicotine dependence; Z88.6 Allergy status to analgesic agent
CPT/HCPCS: 36415; 71045; 71275; 80048; 80076; 83880; 84443; 85025; 93005; 93041; 94760; 99285; Q9967

== ENCOUNTER → 2020-10-15 | Outpatient (CLI) | payer OTHER ==
[~2020-10-15] MED LIST changes: +ERGO500029 PO; -VITA50005 PO
[2020-10-15 12:13] LABS: ALBUMIN 3.4 GM/DL (3.2-5.2); BILIRUBIN,DIRECT 0.1 MG/DL (0.0-0.2); BILIRUBIN,TOTAL 0.4 MG/DL (0.2-1.0); PERCENT SATURATION 21.8 % (19.7-50.0); TOTAL PROTEIN 7.2 GM/DL (6.4-8.2)
[2020-10-17 00:08] LABS: ANTI-MITOCHONDRIAL ANTIBODY <20.0 Units (0.0-20.0); ANTI-SMOOTH MUSCLE ANTIBODY 10 Units (0-19); ANTINUCLEAR ANTIBODIES DIRECT Negative (Negative); HEPATITIS A IgG TOTAL Negative (Negative); LIVER-KIDNEY MICROSOMAL ABY <20.1 Units (0.0-20.0)
== END ==
LOC: M LAB 09:13
PROVIDERS: ATTEND Internal Medicine Gastroenterology
DX: B18.9 Chronic viral hepatitis, unspecified (principal)

== ENCOUNTER → 2020-10-15 | Outpatient (CLI) | payer OTHER ==
[2020-10-15 12:12] LABS: CALCIUM LEVEL 8.9 MG/DL (8.5-10.1); CHOLESTEROL RISK RATIO 2.911 (<5); CREATININE FOR GFR 1.36 MG/DL (0.70-1.30); GLOMERULAR FILTRATION RATE 57.7 (>56); POTASSIUM SERUM 4.9 MEQ/L (3.5-5.1)
== END ==
LOC: M LAB 09:26
PROVIDERS: ATTEND Physician Assistant Medical
DX: E78.5 Hyperlipidemia, unspecified (principal)

== ENCOUNTER → 2020-12-30 | Outpatient (CLI) | payer OTHER ==
[~2020-12-30] MED LIST changes: -VERA120T4 PO; +VERA120T77 PO
[2020-12-30 15:07] LABS: ALBUMIN 3.4 GM/DL (3.2-5.2); BILIRUBIN,TOTAL 0.5 MG/DL (0.2-1.0); CALCIUM LEVEL 9.5 MG/DL (8.5-10.1); CREATININE FOR GFR 1.45 MG/DL (0.70-1.30); GLOMERULAR FILTRATION RATE 53.6 (>56); POTASSIUM SERUM 4.8 MEQ/L (3.5-5.1); TOTAL PROTEIN 6.9 GM/DL (6.4-8.2)
== END ==
LOC: M PLALAB 09:44
PROVIDERS: ATTEND Family Medicine
DX: E11.69 Type 2 diabetes mellitus with other specified complication (principal)

== ENCOUNTER → 2021-02-02 | Outpatient (CLI) | payer OTHER ==
[~2021-02-02] MED LIST changes: +VERA120T71 PO; -VERA120T77 PO
[2021-02-02 12:15] LABS: CALCIUM LEVEL 9.2 MG/DL (8.5-10.1); CREATININE FOR GFR 1.35 MG/DL (0.70-1.30); GLOMERULAR FILTRATION RATE 58.2 (>56)
== END ==
LOC: M PLALAB 08:54
PROVIDERS: ATTEND Family Medicine
DX: R94.4 Abnormal results of kidney function studies (principal)

== ENCOUNTER → 2021-04-08 | Outpatient (REF) | payer OTHER ==
[~2021-04-08] MED LIST changes: +LOSA100T45; +LOSA100T45 PO; -LOSA100T50; -LOSA100T50 PO; +LOSA50TA28 PO; -LOSA50TA88 PO
[2021-04-08 18:09] LABS: BASO % 0.4 % (0.0-1.0); EOS # 0.2 10^3/uL (0.0-0.5); EOS % 2.2 % (0.0-3.0); HEMOGLOBIN 15.7 g/dl (13.5-17.5); LYMPH # 2.2 10^3/uL (1.5-5.0); LYMPH % 23.4 % (24.0-44.0); MEAN CORPUSCULAR HEMOGLOBIN 27.1 pg (27.0-33.0); MEAN CORPUSCULAR VOLUME 84.5 fl (80.0-96.0); MONO # 0.5 10^3/uL (0.0-0.8); MONO % 5.7 % (2.0-8.0); NEUTROPHILS # 6.5 10^3/uL (1.5-8.5); PLATELET COUNT, AUTOMATED 254 10^3/uL (150-450); WHITE BLOOD COUNT 9.5 10^3/uL (4.0-10.0)
[2021-04-08 19:13] LABS: ERYTHROCYTE SEDIMENTATION RATE 10 mm/hr (0-20)
== END ==
LOC: M LAB REF 17:07
PROVIDERS: ATTEND Internal Medicine Pulmonary Disease
DX: R06.00 Dyspnea, unspecified (principal)

== ENCOUNTER → 2021-04-29 | Outpatient (REF) | payer OTHER ==
[2021-04-29 14:10] LABS: APPEARANCE, URINE CLEAR (CLEAR); BACTERIA, URINE AUTO NEGATIVE (NEGATIVE); BILIRUBIN, URINE AUTO NEGATIVE (NEGATIVE); BLOOD, URINE BLOOD NEGATIVE (NEGATIVE); CALCIUM OXALATE CRYSTALS MODERATE; COLOR, URINE YELLOW (YELLOW); GLUCOSE, URINE (UA) AUTO 3+ mg/dL (NEGATIVE); KETONE, URINE AUTO NEGATIVE (NEGATIVE); LEUKOCYTE ESTERASE, URINE AUTO NEGATIVE (NEGATIVE); NITRITE, URINE AUTO NEGATIVE (NEGATIVE); PROTEIN, URINE AUTO 1+ mg/dL (NEGATIVE); RBC, URINE AUTO 0 /HPF (0-3); SPECIFIC GRAVITY URINE AUTO 1.018 (1.002-1.035); SQUAMOUS EPITHELIAL CELL UR AU 2 /HPF (0-6); UROBILINOGEN, URINE AUTO 0.2 mg/dL (0.0-2.0); WBC, URINE AUTO 0 /HPF (0-3)
== END ==
LOC: M SMT 13:31
PROVIDERS: ATTEND Nurse Practitioner Women's Health
DX: R39.12 Poor urinary stream (principal)

== ENCOUNTER → 2021-04-30 | Outpatient (CLI) | payer OTHER ==
[2021-04-30 11:01] LABS: ALBUMIN 3.7 GM/DL (3.2-5.2); ALT/SGPT 45 U/L (12-78); BILIRUBIN,TOTAL 0.4 MG/DL (0.2-1.0); BLOOD UREA NITROGEN 21 MG/DL (7-18); CALCIUM LEVEL 9.2 MG/DL (8.5-10.1); CARBON DIOXIDE LEVEL 29 MEQ/L (21-32); CHLORIDE LEVEL 104 MEQ/L (98-107); GLOMERULAR FILTRATION RATE > 60.0 (>56); GLUCOSE, FASTING 231 MG/DL (70-100); POTASSIUM SERUM 4.9 MEQ/L (3.5-5.1); SODIUM LEVEL 138 MEQ/L (136-145); TOTAL PROTEIN 7.4 GM/DL (6.4-8.2)
[2021-04-30 11:17] LABS: HEMOGLOBIN A1c 9.2 %
[2021-04-30 11:39] LABS: MAU/CREAT RATIO 381.8 MCG/MG (0.0-30.0)
== END ==
LOC: M PLALAB 07:46
PROVIDERS: ATTEND Family Medicine
DX: E11.69 Type 2 diabetes mellitus with other specified complication (principal)

== ENCOUNTER → 2021-05-07 | Outpatient (CLI) | payer OTHER | LOC: M RAD 07:28 | PROVIDERS: ATTEND Internal Medicine Pulmonary Disease | DX: R06.00 Dyspnea, unspecified (principal) ==

== ENCOUNTER → 2021-05-11 | Outpatient (CLI) | payer OTHER ==
[2021-05-11 10:05] LABS: CALCIUM LEVEL 9.4 MG/DL (8.5-10.1); CHOLESTEROL RISK RATIO 2.692 (<5); CREATININE FOR GFR 1.47 MG/DL (0.70-1.30); GLOMERULAR FILTRATION RATE 52.6 (>56); POTASSIUM SERUM 5.4 MEQ/L (3.5-5.1)
== END ==
LOC: M LAB 09:07
PROVIDERS: ATTEND Physician Assistant Medical
DX: I10 Essential (primary) hypertension (principal)

== ENCOUNTER → 2021-06-03 | Outpatient (CLI) | payer OTHER | LOC: M RAD 08:04 | PROVIDERS: ATTEND Internal Medicine Pulmonary Disease | DX: R06.02 Shortness of breath (principal) ==

== ENCOUNTER → 2021-06-30 | Outpatient (CLI) | payer OTHER ==
[2021-06-30 12:29] LABS: CALCIUM LEVEL 9.4 MG/DL (8.5-10.1); CREATININE FOR GFR 1.38 MG/DL (0.70-1.30); GLOMERULAR FILTRATION RATE 56.5 (>56)
== END ==
LOC: M PLALAB 08:29
PROVIDERS: ATTEND Family Medicine
DX: E87.5 Hyperkalemia (principal)

== ENCOUNTER → 2021-10-12 | Outpatient (CLI) | payer OTHER ==
[2021-10-12 11:01] LABS: HEMATOCRIT 43.5 % (42.0-52.0); HEMOGLOBIN 13.8 g/dl (13.5-17.5); MEAN CORPUSCULAR HEMOGLOBIN 27.3 pg (27.0-33.0); MEAN CORPUSCULAR HGB CONC 31.7 g/dl (32.0-36.5); PLATELET COUNT, AUTOMATED 212 10^3/uL (150-450); RED BLOOD COUNT 5.06 10^6/uL (4.30-6.10); WHITE BLOOD COUNT 7.8 10^3/uL (4.0-10.0)
[2021-10-12 11:46] LABS: HEMOGLOBIN A1c 6.8 %
[2021-10-12 11:53] LABS: MAU/CREAT RATIO 69.4 MCG/MG (0.0-30.0)
[2021-10-12 12:11] LABS: ALBUMIN 3.2 GM/DL (3.2-5.2); BILIRUBIN,TOTAL 0.5 MG/DL (0.2-1.0); C REACTIVE PROTEIN QUANTITATIV 1.81 MG/DL (0.00-0.30); CALCIUM LEVEL 8.3 MG/DL (8.5-10.1); CHOLESTEROL RISK RATIO 2.28 (<5); CREATININE FOR GFR 1.34 MG/DL (0.70-1.30); FREE T4 0.83 NG/DL (0.76-1.46); GLOMERULAR FILTRATION RATE 58.5 (>56); POTASSIUM SERUM 4.8 MEQ/L (3.5-5.1); THYROID STIMULATING HORMONE 1.2 uIU/ML (0.358-3.740); TOTAL PROTEIN 6.8 GM/DL (6.4-8.2)
[2021-10-12 12:24] LABS: TOTAL 25(OH) VITAMIN D 58.9 NG/ML (30.0-100.0)
== END ==
LOC: M PLALAB 08:35
PROVIDERS: ATTEND Internal Medicine Hematology
DX: E11.69 Type 2 diabetes mellitus with other specified complication (principal)

== ENCOUNTER → 2021-10-20 | Outpatient (CLI) | payer OTHER | LOC: M CARPUL 10:49 | PROVIDERS: ATTEND Internal Medicine Pulmonary Disease | DX: J45.40 Moderate persistent asthma, uncomplicated (principal) ==

== ENCOUNTER → 2022-03-01 | Outpatient (REF) | payer MEDICARE ==
[~2022-03-01] MED LIST changes: +CLOP75TA99 PO; -PLAV1TAB2 PO
== END ==
LOC: M LAB REF 16:59
PROVIDERS: ATTEND Internal Medicine Nephrology
DX: N20.0 Calculus of kidney (principal)

== ENCOUNTER → 2022-03-26 | Outpatient (CLI) | payer MEDICARE ==
[2022-03-26 13:45] LABS: BASO # 0.1 10^3/uL (0.0-0.2); BASO % 1.2 % (0.0-1.0); EOS # 0.1 10^3/uL (0.0-0.5); EOS % 0.6 % (0.0-3.0); HEMATOCRIT 44.3 % (42.0-52.0); HEMOGLOBIN 14.2 g/dl (13.5-17.5); MEAN CORPUSCULAR HEMOGLOBIN 26.9 pg (27.0-33.0); MEAN CORPUSCULAR HGB CONC 32.1 g/dl (32.0-36.5); MEAN CORPUSCULAR VOLUME 84.1 fl (80.0-96.0); MONO # 0.8 10^3/uL (0.0-0.8); MONO % 7.1 % (2.0-8.0); NEUTROPHILS # 3.9 10^3/uL (1.5-8.5); NEUTROPHILS % 35.8 % (36.0-66.0); PLATELET COUNT, AUTOMATED 155 10^3/uL (150-450); RED BLOOD COUNT 5.27 10^6/uL (4.30-6.10); WHITE BLOOD COUNT 10.9 10^3/uL (4.0-10.0)
[2022-03-26 14:07] LABS: MAGNESIUM LEVEL 1.5 MG/DL (1.8-2.4)
[2022-03-26 14:10] LABS: CALCIUM LEVEL 8.7 MG/DL (8.5-10.1); CREATININE FOR GFR 1.67 MG/DL (0.70-1.30); GLOMERULAR FILTRATION RATE 45.4 (>56); POTASSIUM SERUM 4.8 MMOL/L (3.5-5.1)
== END ==
LOC: M PLALAB 10:05
PROVIDERS: ATTEND Physician Assistant
DX: R50.9 Fever, unspecified (principal); I95.9 Hypotension, unspecified

== ENCOUNTER → 2022-06-24 | Outpatient (REF) | payer MEDICARE | LOC: M LAB REF 11:36 | PROVIDERS: ATTEND Physician Assistant | DX: J02.9 Acute pharyngitis, unspecified (principal) ==

== ENCOUNTER → 2022-07-19 | Outpatient (CLI) | payer MEDICARE | LOC: M RAD 14:57 | PROVIDERS: ATTEND Surgery Vascular Surgery | DX: I65.23 Occlusion and stenosis of bilateral carotid arteries (principal) ==

== ENCOUNTER → 2022-12-09 | Outpatient (CLI) | payer MEDICARE ==
[~2022-12-09] MED LIST changes: -HYDR200T3 PO; +HYDR200T46 PO; -LOSA100T45; -LOSA100T45 PO; +LOSA100T46; +LOSA100T46 PO
== END ==
LOC: M PLALAB 10:59
PROVIDERS: ATTEND Internal Medicine Hematology
DX: Z01.818 Encounter for other preprocedural examination (principal); I10 Essential (primary) hypertension; G47.33 Obstructive sleep apnea (adult) (pediatric); E11.9 Type 2 diabetes mellitus without complications; E66.01 Morbid (severe) obesity due to excess calories; L20.82 Flexural eczema
CPT/HCPCS: 36415; 83880; G0463

== ENCOUNTER → 2023-05-25 | Outpatient (CLI) | payer MEDICARE ==
[~2023-05-25] MED LIST changes: -HYDR-3910 PO; +HYDR25TA87 PO
[2023-05-25 13:46] LABS: HEMATOCRIT 46.9 % (42.0-52.0); HEMOGLOBIN 15.4 g/dl (13.5-17.5); MEAN CORPUSCULAR HEMOGLOBIN 28.3 pg (27.0-33.0); MEAN CORPUSCULAR HGB CONC 32.8 g/dl (32.0-36.5); MEAN CORPUSCULAR VOLUME 86.1 fl (80.0-96.0); PLATELET COUNT, AUTOMATED 224 10^3/uL (150-450); RED BLOOD COUNT 5.45 10^6/uL (4.30-6.10); WHITE BLOOD COUNT 8.4 10^3/uL (4.0-10.0)
[2023-05-25 14:04] LABS: CREATININE, URINE 45.7 MG/DL; MALB URINE SIEMENS < 3.0 MG/L; MAU/CREAT RATIO 6.5 MCG/MG (0.0-30.0); PSA SCREENING 1.1 NG/ML (< 4.00)
[2023-05-25 14:06] LABS: C REACTIVE PROTEIN QUANTITATIV 1.7 MG/DL (<1.0)
[2023-05-25 14:08] LABS: FREE T4 1.1 NG/DL (0.89-1.76)
[2023-05-25 14:09] LABS: THYROID STIMULATING HORMONE 1.639 uIU/ML (0.55-4.78); TOTAL 25(OH) VITAMIN D 32.6 NG/ML (20.0-100.0)
[2023-05-25 14:40] LABS: ALBUMIN 3.4 G/DL (3.2-5.2); BILIRUBIN,TOTAL 0.6 MG/DL (0.3-1.2); CALCIUM LEVEL 9.6 MG/DL (8.5-10.1); CHOLESTEROL RISK RATIO 4.32 (<5); CREATININE FOR GFR 1.48 MG/DL (0.70-1.30); GLOMERULAR FILTRATION RATE 51.8 (>56); HDL CHOLESTEROL 36.1 MG/DL (>40); LDL CHOLESTEROL 82.3 MG/DL (<100); MAGNESIUM LEVEL 1.7 MG/DL (1.8-2.4); NON-HDL-C 119.9 MG/DL
[2023-05-25 14:52] LABS: HEMOGLOBIN A1c 13.7 % (4.0-6.0)
== END ==
LOC: M PLALAB 11:20
PROVIDERS: ATTEND Internal Medicine Hematology
DX: I25.10 Atherosclerotic heart disease of native coronary artery without angina pectoris (principal); I10 Essential (primary) hypertension; E11.9 Type 2 diabetes mellitus without complications; Z12.5 Encounter for screening for malignant neoplasm of prostate; Z79.899 Other long term (current) drug therapy

== ENCOUNTER → 2023-08-10 | Outpatient (CLI) | payer MEDICARE | LOC: M RAD 08:37 | PROVIDERS: ATTEND Internal Medicine Pulmonary Disease | DX: J45.50 Severe persistent asthma, uncomplicated (principal) ==

== ENCOUNTER → 2023-08-15 | Outpatient (CLI) | payer MEDICARE | LOC: M RAD 12:58 | PROVIDERS: ATTEND Physician Assistant | DX: I65.23 Occlusion and stenosis of bilateral carotid arteries (principal) ==

== ENCOUNTER 2023-09-01 08:20 | Emergency (ER) | payer MEDICARE, OTHER, SELFPAY ==
[~2023-09-01] VITALS: Ht 175.3 cm; Wt 135.8 kg
[2023-09-01] MEDS ORDERED: SERT50TA29 (08:36)
[2023-09-01] MEDS ORDERED: MONT10TA97 (08:36)
[2023-09-01] MEDS ORDERED: CYCL-707 PO (08:36)
[2023-09-01] MEDS ORDERED: HYDR50TAB (08:36)
[2023-09-01] MEDS ORDERED: METF-838 (08:36)
[2023-09-01] MEDS ORDERED: JARD1TAB3 (08:36)
[2023-09-01] MEDS: diazePAM 2 MG TAB PO ONE (14:38)
[2023-09-01 16:09] LABS: HEMATOCRIT 52.6 % (42.0-52.0); HEMOGLOBIN 17.4 g/dl (13.5-17.5); MEAN CORPUSCULAR HEMOGLOBIN 28.1 pg (27.0-33.0); MEAN CORPUSCULAR HGB CONC 33.1 g/dl (32.0-36.5); PLATELET COUNT, AUTOMATED 250 10^3/uL (150-450); RED BLOOD COUNT 6.19 10^6/uL (4.30-6.10)
[2023-09-01] MEDS ORDERED: HALOPERIDOL LACTATE 5MG/ML VIAL IV ONE (18:05)
[2023-09-01 18:53] LABS: C REACTIVE PROTEIN QUANTITATIV 2.2 MG/DL (<1.0)
[2023-09-01 18:57] LABS: THYROID STIMULATING HORMONE 1.529 uIU/ML (0.55-4.78)
[2023-09-01 19:02] LABS: ERYTHROCYTE SEDIMENTATION RATE 46 mm/hr (0-20)
[2023-09-01 20:09] VITALS: BP 118/80; TEMP 97.3; O2SAT 96
== END 2023-09-01 20:19 | disposition home or self-care (01) ==
LOC: M ED 08:20
DX: I69.312 Visuospatial deficit and spatial neglect following cerebral infarction (principal); I11.0 Hypertensive heart disease with heart failure; E11.9 Type 2 diabetes mellitus without complications; I25.2 Old myocardial infarction; I50.22 Chronic systolic (congestive) heart failure; Z87.891 Personal history of nicotine dependence; Z88.8 Allergy status to other drugs, medicaments and biological substances; Z79.51 Long term (current) use of inhaled steroids; Z79.1 Long term (current) use of non-steroidal anti-inflammatories (NSAID); Z79.4 Long term (current) use of insulin; Z79.84 Long term (current) use of oral hypoglycemic drugs; Z79.899 Other long term (current) drug therapy

== ENCOUNTER → 2023-10-13 | Outpatient (CLI) | payer OTHER ==
[~2023-10-13] MED LIST changes: +CYCL-707 PO; +HYDR50TAB; +JARD1TAB3; +METF-838; +MONT10TA97; +SERT50TA29
[2023-10-13 12:45] LABS: BASO % 0.5 % (0.0-1.0); EOS # 0.3 10^3/uL (0.0-0.5); EOS % 4.1 % (0.0-3.0); HEMATOCRIT 46.2 % (42.0-52.0); HEMOGLOBIN 15.2 g/dl (13.5-17.5); LYMPH # 2.8 10^3/uL (1.5-5.0); LYMPH % 33.5 % (24.0-44.0); MEAN CORPUSCULAR HGB CONC 32.9 g/dl (32.0-36.5); MEAN CORPUSCULAR VOLUME 85.2 fl (80.0-96.0); MONO # 0.6 10^3/uL (0.0-0.8); MONO % 7.5 % (2.0-8.0); NEUTROPHILS # 4.5 10^3/uL (1.5-8.5); PLATELET COUNT, AUTOMATED 211 10^3/uL (150-450); RED BLOOD COUNT 5.42 10^6/uL (4.30-6.10); WHITE BLOOD COUNT 8.4 10^3/uL (4.0-10.0)
[2023-10-13 12:59] LABS: HEMOGLOBIN A1c 11.1 % (4.0-6.0)
[2023-10-13 13:17] LABS: FREE T4 1.1 NG/DL (0.89-1.76); THYROID STIMULATING HORMONE 1.403 uIU/ML (0.55-4.78)
[2023-10-13 13:18] LABS: ALBUMIN 3.5 G/DL (3.2-5.2); BILIRUBIN,TOTAL 0.6 MG/DL (0.3-1.2); CALCIUM LEVEL 9.5 MG/DL (8.5-10.1); CHOLESTEROL RISK RATIO 3.45 (<5); CREATININE FOR GFR 1.48 MG/DL (0.70-1.30); GLOMERULAR FILTRATION RATE 51.8 (>56); HDL CHOLESTEROL 34.4 MG/DL (>40); INR 1.09; LDL CHOLESTEROL 68.6 MG/DL (<100); MAGNESIUM LEVEL 1.6 MG/DL (1.8-2.4); NON-HDL-C 84.6 MG/DL; PARTIAL THROMBOPLASTIN TIME 25.9 SECONDS (24.8-34.2); POTASSIUM SERUM 4.5 MMOL/L (3.5-5.1); PROTHROMBIN TIME 13.8 SECONDS (12.5-14.5); TOTAL PROTEIN 6.8 G/DL (5.7-8.2)
== END ==
LOC: M PLALAB 09:55
PROVIDERS: ATTEND Student in an Organized Health Care Education/Training Program
DX: N18.31 Chronic kidney disease, stage 3a (principal); E78.2 Mixed hyperlipidemia; E55.9 Vitamin D deficiency, unspecified; F41.9 Anxiety disorder, unspecified; E61.2 Magnesium deficiency; E79.0 Hyperuricemia without signs of inflammatory arthritis and tophaceous disease; G45.9 Transient cerebral ischemic attack, unspecified

== ENCOUNTER → 2024-01-02 | Outpatient (CLI) | payer OTHER ==
[~2024-01-02] MED LIST changes: +GABA-1172 PO; -GABA-282 PO
== END ==
LOC: M PLAIMG 14:42
PROVIDERS: ATTEND Physician Assistant Medical
DX: R22.0 Localized swelling, mass and lump, head (principal)

== ENCOUNTER → 2024-01-04 | Outpatient (CLI) | payer OTHER ==
[2024-01-04 13:20] LABS: BASO # 0.1 10^3/uL (0.0-0.2); BASO % 0.4 % (0.0-1.0); EOS # 0.1 10^3/uL (0.0-0.5); EOS % 0.8 % (0.0-3.0); HEMATOCRIT 45.8 % (42.0-52.0); LYMPH # 2.8 10^3/uL (1.5-5.0); LYMPH % 19.3 % (24.0-44.0); MEAN CORPUSCULAR HEMOGLOBIN 28.3 pg (27.0-33.0); MEAN CORPUSCULAR HGB CONC 32.8 g/dl (32.0-36.5); MEAN CORPUSCULAR VOLUME 86.4 fl (80.0-96.0); MONO # 0.9 10^3/uL (0.0-0.8); MONO % 6.3 % (2.0-8.0); NEUTROPHILS # 10.4 10^3/uL (1.5-8.5); NEUTROPHILS % 72.8 % (36.0-66.0); PLATELET COUNT, AUTOMATED 252 10^3/uL (150-450); WHITE BLOOD COUNT 14.3 10^3/uL (4.0-10.0)
[2024-01-04 13:31] LABS: HEMOGLOBIN A1c 11.4 % (4.0-6.0)
[2024-01-04 13:54] LABS: CREATININE, URINE 52.9 MG/DL
[2024-01-04 13:57] LABS: THYROID STIMULATING HORMONE 1.126 uIU/ML (0.55-4.78)
[2024-01-04 13:58] LABS: MAU/CREAT RATIO 18.9 MCG/MG (0.0-30.0); TOTAL 25(OH) VITAMIN D 29.2 NG/ML (20.0-100.0); VITAMIN B12 LEVEL 487 PG/ML (211-911)
[2024-01-04 14:20] LABS: ALBUMIN 3.3 G/DL (3.2-5.2); ALKALINE PHOSPHATASE 113 U/L (46-116); ALT/SGPT 22 U/L (7.0-40); AST/SGOT 9 U/L (<34); BILIRUBIN,TOTAL 0.7 MG/DL (0.3-1.2); BLOOD UREA NITROGEN 29 MG/DL (9-23); CALCIUM LEVEL 9.7 MG/DL (8.5-10.1); CARBON DIOXIDE LEVEL 28 MMOL/L (20-31); CHLORIDE LEVEL 96 MMOL/L (98-107); CREATININE FOR GFR 1.24 MG/DL (0.70-1.30); GLOMERULAR FILTRATION RATE > 60.0 (>56); GLUCOSE, FASTING 467 MG/DL (60-100); POTASSIUM SERUM 4.7 MMOL/L (3.5-5.1); SODIUM LEVEL 132 MMOL/L (136-145); TOTAL PROTEIN 7.3 G/DL (5.7-8.2)
== END ==
LOC: M PLALAB 12:18
PROVIDERS: ATTEND Internal Medicine Hematology
DX: E11.9 Type 2 diabetes mellitus without complications (principal)

== ENCOUNTER → 2024-01-04 | Outpatient (CLI) | payer OTHER ==
[2024-01-04 13:05] LABS: BASO # 0.1 10^3/uL (0.0-0.2); BASO % 0.4 % (0.0-1.0); EOS # 0.1 10^3/uL (0.0-0.5); EOS % 0.8 % (0.0-3.0); HEMATOCRIT 45.9 % (42.0-52.0); HEMOGLOBIN 15.1 g/dl (13.5-17.5); LYMPH # 2.7 10^3/uL (1.5-5.0); LYMPH % 18.9 % (24.0-44.0); MEAN CORPUSCULAR HEMOGLOBIN 28.5 pg (27.0-33.0); MEAN CORPUSCULAR HGB CONC 32.9 g/dl (32.0-36.5); MEAN CORPUSCULAR VOLUME 86.6 fl (80.0-96.0); MONO # 0.9 10^3/uL (0.0-0.8); MONO % 6.1 % (2.0-8.0); NEUTROPHILS # 10.3 10^3/uL (1.5-8.5); NEUTROPHILS % 73.4 % (36.0-66.0); PLATELET COUNT, AUTOMATED 257 10^3/uL (150-450); WHITE BLOOD COUNT 14.1 10^3/uL (4.0-10.0)
== END ==
LOC: M PLALAB 12:17
PROVIDERS: ATTEND Physician Assistant Medical
DX: L02.13 Carbuncle of neck (principal)

== ENCOUNTER → 2024-02-02 | Outpatient (CLI) | payer OTHER ==
[2024-02-02 11:05] LABS: FREE T4 1.32 NG/DL (0.89-1.76); THYROID STIMULATING HORMONE 1.587 uIU/ML (0.55-4.78)
== END ==
LOC: M SLEEP 07:49
PROVIDERS: ATTEND Psychiatry & Neurology Neurology
DX: I63.311 Cerebral infarction due to thrombosis of right middle cerebral artery (principal); Z79.899 Other long term (current) drug therapy

== ENCOUNTER → 2024-02-07 | Outpatient (CLI) | payer OTHER ==
[2024-02-07 13:38] LABS: CALCIUM LEVEL 10.3 MG/DL (8.5-10.1); CREATININE FOR GFR 1.34 MG/DL (0.70-1.30); GLOMERULAR FILTRATION RATE 58.1 (>56); POTASSIUM SERUM 4.9 MMOL/L (3.5-5.1)
== END ==
LOC: M PLALAB 09:41
PROVIDERS: ATTEND Student in an Organized Health Care Education/Training Program
DX: R07.89 Other chest pain (principal)

== ENCOUNTER → 2024-03-15 | Outpatient (CLI) | payer OTHER ==
[~2024-03-15] MED LIST changes: +PROHANCE 279.3MG/ML 15ML VIAL As Ordered ONE; +PROHANCE 279.3MG/ML 5ML VIAL As Ordered ONE
== END ==
LOC: M RAD 16:06
PROVIDERS: ATTEND Psychiatry & Neurology Neurology
DX: I63.311 Cerebral infarction due to thrombosis of right middle cerebral artery (principal)

== ENCOUNTER → 2024-04-19 | Outpatient (CLI) | payer OTHER ==
[~2024-04-19] MED LIST changes: -PROHANCE 279.3MG/ML 15ML VIAL As Ordered ONE; -PROHANCE 279.3MG/ML 5ML VIAL As Ordered ONE
[2024-04-19 11:13] LABS: BLOOD UREA NITROGEN 26 MG/DL (9-23); CREATININE FOR GFR 1.29 MG/DL (0.70-1.30); GLOMERULAR FILTRATION RATE > 60.0 (>49)
== END ==
LOC: M PLALAB 08:51
PROVIDERS: ATTEND Internal Medicine Pulmonary Disease
DX: R06.00 Dyspnea, unspecified (principal)

== ENCOUNTER → 2024-04-25 | Outpatient (CLI) | payer OTHER ==
[~2024-04-25] MED LIST changes: +ISOVUE-370 76% 100ML VIAL ONE
== END ==
LOC: M PLAIMG 14:06
PROVIDERS: ATTEND Internal Medicine Pulmonary Disease
DX: R06.00 Dyspnea, unspecified (principal); I71.21 Aneurysm of the ascending aorta, without rupture
CPT/HCPCS: 71275; Q9967

== ENCOUNTER → 2024-06-05 | Outpatient (CLI) | payer OTHER ==
[~2024-06-05] MED LIST changes: -ISOVUE-370 76% 100ML VIAL ONE
[2024-06-05 19:43] LABS: BASO % 0.4 % (0.0-1.0); EOS # 0.3 10^3/uL (0.0-0.5); EOS % 2.7 % (0.0-3.0); HEMATOCRIT 51.4 % (42.0-52.0); HEMOGLOBIN 16.5 g/dl (13.5-17.5); LYMPH % 29.7 % (24.0-44.0); MEAN CORPUSCULAR HEMOGLOBIN 27.8 pg (27.0-33.0); MEAN CORPUSCULAR HGB CONC 32.1 g/dl (32.0-36.5); MEAN CORPUSCULAR VOLUME 86.5 fl (80.0-96.0); MONO # 0.7 10^3/uL (0.0-0.8); MONO % 7.3 % (2.0-8.0); NEUTROPHILS # 5.9 10^3/uL (1.5-8.5); NEUTROPHILS % 59.6 % (36.0-66.0); PLATELET COUNT, AUTOMATED 212 10^3/uL (150-450); RED BLOOD COUNT 5.94 10^6/uL (4.30-6.10); WHITE BLOOD COUNT 9.9 10^3/uL (4.0-10.0)
[2024-06-05 20:15] LABS: CK-MB VALUE MASS < 1.0 NG/ML (<3.6)
[2024-06-05 20:18] LABS: FERRITIN 44.6 NG/ML (10.5-307.3); THYROID STIMULATING HORMONE 1.311 uIU/ML (0.55-4.78)
[2024-06-05 20:20] LABS: FREE T4 1.36 NG/DL (0.89-1.76)
[2024-06-05 20:21] LABS: ALBUMIN 3.7 G/DL (3.2-5.2); ALKALINE PHOSPHATASE 93 U/L (40-129); ALT/SGPT 25 U/L (7.0-40); AST/SGOT 12 U/L (<34); BILIRUBIN,TOTAL 0.6 MG/DL (0.3-1.2); BLOOD UREA NITROGEN 29 MG/DL (9-23); CALCIUM LEVEL 9.8 MG/DL (8.3-10.6); CARBON DIOXIDE LEVEL 28 MMOL/L (20-31); CHLORIDE LEVEL 103 MMOL/L (98-107); CHOLESTEROL LEVEL 119 MG/DL (<200); CHOLESTEROL RISK RATIO 2.98 (<5); CPK CREATINE PHOSPHOKINASE 52 U/L (46-171); CREATININE FOR GFR 1.28 MG/DL (0.70-1.30); GLOMERULAR FILTRATION RATE > 60.0 (>49); GLUCOSE, FASTING 158 MG/DL (74-106); HDL CHOLESTEROL 39.9 MG/DL (>40); LDL CHOLESTEROL 63.5 MG/DL (<100); MAGNESIUM LEVEL 1.6 MG/DL (1.8-2.4); MB/CK RELATIVE INDEX 1.92 (< OR =4); NON-HDL-C 79.1 MG/DL; POTASSIUM SERUM 5.4 MMOL/L (3.5-5.1); SODIUM LEVEL 141 MMOL/L (136-145); TOTAL PROTEIN 7.5 G/DL (5.7-8.2); TRIGLYCERIDES LEVEL 78 MG/DL (<150)
== END ==
LOC: M PLALAB 15:43
PROVIDERS: ATTEND Student in an Organized Health Care Education/Training Program
DX: R07.89 Other chest pain (principal); E07.9 Disorder of thyroid, unspecified; D50.9 Iron deficiency anemia, unspecified

== ENCOUNTER → 2024-06-07 | Outpatient (CLI) | payer OTHER ==
[2024-06-07 16:08] LABS: BLOOD UREA NITROGEN 33 MG/DL (9-23); CALCIUM LEVEL 9.5 MG/DL (8.3-10.6); CARBON DIOXIDE LEVEL 31 MMOL/L (20-31); CHLORIDE LEVEL 101 MMOL/L (98-107); CREATININE FOR GFR 1.29 MG/DL (0.70-1.30); GLOMERULAR FILTRATION RATE > 60.0 (>49); GLUCOSE, FASTING 223 MG/DL (74-106); POTASSIUM SERUM 4.5 MMOL/L (3.5-5.1); SODIUM LEVEL 139 MMOL/L (136-145)
== END ==
LOC: M PLALAB 09:50
PROVIDERS: ATTEND Student in an Organized Health Care Education/Training Program
DX: E87.5 Hyperkalemia (principal)

== ENCOUNTER → 2024-07-26 | Outpatient (CLI) | payer OTHER ==
[~2024-07-26] MED LIST changes: -FLOM0.4C39 PO; +TAMS-18 PO
== END ==
LOC: M PLARAD 13:32
PROVIDERS: ATTEND Psychiatry & Neurology Neurology
DX: G45.0 Vertebro-basilar artery syndrome (principal); I63.311 Cerebral infarction due to thrombosis of right middle cerebral artery; R42 Dizziness and giddiness; H53.8 Other visual disturbances

== ENCOUNTER → 2024-11-07 | Outpatient (CLI) | payer OTHER ==
[~2024-11-07] MED LIST changes: +ASPI81TA26 PO; +CYCL5TAB4 PO; +FAMO1TAB11 PO; -HYDR50TAB; +HYDR50TAB PO; -METF-838; -MONT10TA97; +MONT10TA97 PO; +OLME40TA PO; +SEMA2PEN SUBQ; -SERT50TA29; +SERT50TA29 PO
[2024-11-07 18:52] LABS: BASO # 0.0 10^3/uL (0.0-0.2); BASO % 0.2 % (0.0-1.0); EOS # 0.0 10^3/uL (0.0-0.5); EOS % 0.0 % (0.0-3.0); LYMPH # 1.4 10^3/uL (1.5-5.0); LYMPH % 12.3 % (24.0-44.0); MONO # 0.2 10^3/uL (0.0-0.8); MONO % 2.1 % (2.0-8.0); NEUTROPHILS # 9.7 10^3/uL (1.5-8.5); NEUTROPHILS % 84.2 % (36.0-66.0); PLATELET COUNT, AUTOMATED 217 10^3/uL (150-450)
[2024-11-07 19:07] LABS: INR 0.97
[2024-11-07 19:17] LABS: ALT/SGPT 36.0 U/L (7.0-40); AST/SGOT 16.0 U/L (<34); CALCIUM LEVEL 9.5 MG/DL (8.3-10.6); CARBON DIOXIDE LEVEL 29.0 MMOL/L (20-31); CHLORIDE LEVEL 100.0 MMOL/L (98-107); CREATININE FOR GFR 1.36 MG/DL (0.70-1.30); GLOMERULAR FILTRATION RATE 59.6 (>49); POTASSIUM SERUM 5.6 MMOL/L (3.5-5.1); SODIUM LEVEL 138.0 MMOL/L (136-145)
== END ==
LOC: M LAB 17:46
PROVIDERS: ATTEND Student in an Organized Health Care Education/Training Program
DX: Z01.818 Encounter for other preprocedural examination (principal); Z79.01 Long term (current) use of anticoagulants

== ENCOUNTER → 2024-11-21 | Outpatient (CLI) | payer OTHER ==
[~2024-11-21] MED LIST changes: +JARD1TAB PO; +PRED20TA PO
[2024-11-21 12:42] LABS: APPEARANCE, URINE CLEAR (CLEAR); BACTERIA, URINE AUTO NEGATIVE (NEGATIVE); BILIRUBIN, URINE AUTO NEGATIVE (NEGATIVE); BLOOD, URINE BLOOD NEGATIVE (NEGATIVE); GLUCOSE, URINE (UA) AUTO 3+ mg/dL (NEGATIVE); KETONE, URINE AUTO NEGATIVE (NEGATIVE); LEUKOCYTE ESTERASE, URINE AUTO NEGATIVE (NEGATIVE); NITRITE, URINE AUTO NEGATIVE (NEGATIVE); PROTEIN, URINE AUTO NEGATIVE (NEGATIVE); RBC, URINE AUTO 0 /HPF (0-3); SPECIFIC GRAVITY URINE AUTO 1.021 (1.002-1.035); SQUAMOUS EPITHELIAL CELL UR AU 0 /HPF (0-6); UROBILINOGEN, URINE AUTO 0.2 mg/dL (0.0-2.0); WBC, URINE AUTO 1 /HPF (0-3)
== END ==
LOC: M LAB 11:32
PROVIDERS: ATTEND Internal Medicine Nephrology
DX: R31.0 Gross hematuria (principal)

== ENCOUNTER 2024-11-27 13:03 | Inpatient (IN) | payer OTHER ==
[~2024-11-27] VITALS: Ht 172.7 cm; Wt 140.5 kg
[~2024-11-27 13:03] MED LIST changes: -JARD1TAB PO; -PRED20TA PO
[2024-11-27] MEDS ORDERED: PRED20TA PO (13:33)
[2024-11-27] MEDS ORDERED: JARD1TAB PO (13:33)
[2024-11-27] MEDS ORDERED: ALLO100T PO (13:33)
[2024-11-27 14:11] LABS: BASO # 0.0 10^3/uL (0.0-0.2); BASO % 0.1 % (0.0-1.0); EOS # 0.0 10^3/uL (0.0-0.5); EOS % 0.0 % (0.0-3.0); LYMPH # 0.6 10^3/uL (1.5-5.0); LYMPH % 5.4 % (24.0-44.0); MONO # 0.1 10^3/uL (0.0-0.8); MONO % 0.8 % (2.0-8.0); NEUTROPHILS # 11.1 10^3/uL (1.5-8.5); NEUTROPHILS % 93.4 % (36.0-66.0); PLATELET COUNT, AUTOMATED 176 10^3/uL (150-450)
[2024-11-27 14:24] LABS: KETONE, URINE AUTO RFX NEGATIVE (NEGATIVE); LEUKOCYTE ESTERASE UR AUTO RFX NEGATIVE (NEGATIVE); NITRITE, URINE AUTO RFX NEGATIVE (NEGATIVE); RBC, URINE AUTO RFX 0 /HPF (0-3); SQUAM EPITHELIAL CELL UR AURFX 0 /HPF (0-6); WBC, URINE AUTO RFX 0 /HPF (0-3)
[2024-11-27 14:38] LABS: CK-MB VALUE MASS 1.7 NG/ML (<3.6)
[2024-11-27 14:42] LABS: FREE T4 1.33 NG/DL (0.89-1.76)
[2024-11-27 15:14] LABS: ALT/SGPT 47.0 U/L (7.0-40); AST/SGOT 17.0 U/L (<34); CALCIUM LEVEL 9.2 MG/DL (8.3-10.6); CARBON DIOXIDE LEVEL 25.0 MMOL/L (20-31); CHLORIDE LEVEL 90.0 MMOL/L (98-107); CPK CREATINE PHOSPHOKINASE 24.0 U/L (46-171); CREATININE FOR GFR 1.48 MG/DL (0.70-1.30); GLOMERULAR FILTRATION RATE 53.8 (>49); MAGNESIUM LEVEL 1.9 MG/DL (1.8-2.4); MB/CK RELATIVE INDEX 7.08 (< OR =4); PHOSPHORUS LEVEL 4.1 MG/DL (2.4-5.1); POTASSIUM SERUM 4.9 MMOL/L (3.5-5.1); SODIUM LEVEL 128.0 MMOL/L (136-145)
[2024-11-27] MEDS: NS (Normal Saline) 0.9% 1,000 ML IV SCH (15:32)
[2024-11-27] MEDS: HumuLIN R (REGULAR) INSULIN (NovoLIN R) **100 U/ML** PER UNIT IV ONE (15:32)
[2024-11-27] MEDS ORDERED: ISOVUE-370 76% 100 ML VIAL As Ordered ONE (15:34)
[2024-11-27 16:08] LABS: CK-MB VALUE MASS 1.4 NG/ML (<3.6)
[2024-11-27 16:14] LABS: CPK CREATINE PHOSPHOKINASE 23.0 U/L (46-171); MB/CK RELATIVE INDEX 6.08 (< OR =4)
[2024-11-27 16:33] LABS: OSMOLALITY SERUM 346.0 MOSM/KG (275-295)
[2024-11-27] MEDS ORDERED: FURO20TA2 PO (16:52)
[2024-11-27] MEDS ORDERED: HOME MED LIST COMPLETE! XX SCH (16:55)
[2024-11-27] MEDS ORDERED: ALBUTEROL 90 MCG/ACT 8 GM HFA INHALER INH PRN (17:30)
[2024-11-27] MEDS ORDERED: CYCLOBENZAPRINE 5 MG TABLET PO PRN (17:30)
[2024-11-27] MEDS: NS (Normal Saline) 0.9% 1,000 ML IV ONE (18:17)
[2024-11-27] MEDS: INSULIN REGULAR IN 0.9 % NACL 100 UNIT in IV 1 EA IV SCH (18:25)
[2024-11-27 19:30] VITALS: BP 138/77; TEMP 97.3; O2SAT 99
[2024-11-27 20:00] VITALS: BP 139/85; O2SAT 97
[2024-11-27] MEDS: MONTELUKAST 10 MG TAB PO SCH (20:13)
[2024-11-27] MEDS: EZETIMIBE 10 MG TABLET PO SCH (20:13)
[2024-11-27] MEDS: DOCUSATE SODIUM 100 MG CAPSULE PO SCH (20:13)
[2024-11-27] MEDS: ATORVASTATIN 20 MG TAB PO SCH (20:13)
[2024-11-27] MEDS: amLODIPine 5 MG TAB PO SCH (20:14)
[2024-11-27] MEDS: METOPROLOL SUCC. 50 MG *XL* TAB PO SCH (20:14)
[2024-11-27] MEDS: FAMOTIDINE 20 MG TAB PO SCH (20:14)
[2024-11-27] MEDS: CLOPIDOGREL 75 MG TAB PO SCH (20:14)
[2024-11-27] MEDS: TAMSULOSIN 0.4 MG CAP PO SCH (20:14)
[2024-11-27] MEDS: hydroCHLOROthiazide 25 MG TAB PO SCH (20:15)
[2024-11-27] MEDS: SERTRALINE HCL 50 MG TAB PO SCH (20:15)
[2024-11-27] MEDS: ASPIRIN 81 MG ENTERIC TABLET PO SCH (20:15)
[2024-11-27] MEDS: ISOSORBIDE MONONITRATE 60 MG XR TAB PO SCH (20:20)
[2024-11-27] MEDS: HEPARIN SOD 5000 UNITS/ML 1 ML VIAL/SYRINGE SC SCH (20:56)
[2024-11-27] MEDS: INSULIN IV RATE CHANGE DOCUMENTATION ML/HR XX SCH (20:57)
[2024-11-27 21:00] VITALS: BP 150/86; O2SAT 97
[2024-11-27 22:00] VITALS: BP 139/94; O2SAT 97
[2024-11-27 22:53] LABS: ALT/SGPT 40.0 U/L (7.0-40); AST/SGOT 12.0 U/L (<34); CALCIUM LEVEL 9.3 MG/DL (8.3-10.6); CARBON DIOXIDE LEVEL 28.0 MMOL/L (20-31); CHLORIDE LEVEL 100.0 MMOL/L (98-107); CREATININE FOR GFR 1.26 MG/DL (0.70-1.30); GLOMERULAR FILTRATION RATE 65.3 (>49); PHOSPHORUS LEVEL 3.3 MG/DL (2.4-5.1); POTASSIUM SERUM 4.0 MMOL/L (3.5-5.1); SODIUM LEVEL 139.0 MMOL/L (136-145)
[2024-11-27 23:00] VITALS: BP 138/77; TEMP 97.2; O2SAT 94
[2024-11-28] VITALS (10 sets, daily range): BP systolic 113–158; BP diastolic 59–90; TEMP 96.8–98.2; O2SAT 91–98
[2024-11-28] MEDS: INSULIN GLARGINE-YFGN 1 UNITS/0.01 ML SC SCH ×2 (02:15→21:01)
[2024-11-28 03:16] LABS: ALT/SGPT 36.0 U/L (7.0-40); AST/SGOT 13.0 U/L (<34); CALCIUM LEVEL 9.1 MG/DL (8.3-10.6); CARBON DIOXIDE LEVEL 30.0 MMOL/L (20-31); CHLORIDE LEVEL 102.0 MMOL/L (98-107); CREATININE FOR GFR 1.16 MG/DL (0.70-1.30); GLOMERULAR FILTRATION RATE 72.1 (>49); PHOSPHORUS LEVEL 3.1 MG/DL (2.4-5.1); POTASSIUM SERUM 3.4 MMOL/L (3.5-5.1); SODIUM LEVEL 141.0 MMOL/L (136-145)
[2024-11-28] MEDS: POTASSIUM CHLORIDE 10MEQ SR TABLET PO ONE (03:28)
[2024-11-28] MEDS ORDERED: GLUCAGON INJ 1 MG VIAL SC PRN (04:55)
[2024-11-28] MEDS ORDERED: DEXTROSE 50% 50 ML SYRINGE IV PRN (04:55)
[2024-11-28] MEDS ORDERED: GLUCOSE 4 GM CHEW PO PRN (04:55)
[2024-11-28 06:36] LABS: ALT/SGPT 38.0 U/L (7.0-40); AST/SGOT 15.0 U/L (<34); CALCIUM LEVEL 9.1 MG/DL (8.3-10.6); CARBON DIOXIDE LEVEL 28.0 MMOL/L (20-31); CHLORIDE LEVEL 101.0 MMOL/L (98-107); CREATININE FOR GFR 1.27 MG/DL (0.70-1.30); GLOMERULAR FILTRATION RATE 64.7 (>49); PHOSPHORUS LEVEL 3.5 MG/DL (2.4-5.1); POTASSIUM SERUM 4.0 MMOL/L (3.5-5.1); SODIUM LEVEL 141.0 MMOL/L (136-145)
[2024-11-28] MEDS: INSULIN LISPRO (NovoLOG) PER UNIT SC SCH ×2 (07:25→21:01)
[2024-11-28 07:28] LABS: ESTIMATED AVERAGE GLUCOSE 332.0 MG/DL (60-110)
[2024-11-28] MEDS: predniSONE 20 MG TAB PO SCH (08:43)
[2024-11-28] MEDS: FUROSEMIDE 20 MG TAB PO SCH (08:45)
[2024-11-28] MEDS ORDERED: INSULIN LISPRO (NovoLOG) PER UNIT SC STA (12:50)
[2024-11-28 13:45] LABS: CHOLESTEROL LEVEL 93.0 MG/DL (<200); CHOLESTEROL RISK RATIO 1.72 (<5); LDL CHOLESTEROL 23.5 MG/DL (<100); NON-HDL-C 39.1 MG/DL; TRIGLYCERIDES LEVEL 78.0 MG/DL (<150)
[2024-11-28] MEDS: INSULIN LISPRO (NovoLOG) PER UNIT SC STA (13:47)
[2024-11-28] MEDS: INSULIN GLARGINE-YFGN 1 UNITS/0.01 ML SC ONE (13:48)
[2024-11-28] MEDS ORDERED: INSULIN GLARGINE-YFGN 1 UNITS/0.01 ML SC ONE (14:00)
[2024-11-28] MEDS ORDERED: INSULIN LISPRO (NovoLOG) PER UNIT SC SCH (17:30)
[2024-11-28] MEDS: INSULIN LISPRO (NovoLOG) PER UNIT SC ONE (18:07)
[2024-11-28] MEDS: ENOXAPARIN 40 MG/0.4 ML SYRINGE (J1650 PER 10MG) SC SCH (21:02)
[2024-11-29 06:25] LABS: PLATELET COUNT, AUTOMATED 192 10^3/uL (150-450)
[2024-11-29 06:53] LABS: ALT/SGPT 41.0 U/L (7.0-40); AST/SGOT 18.0 U/L (<34); CALCIUM LEVEL 9.4 MG/DL (8.3-10.6); CARBON DIOXIDE LEVEL 31.0 MMOL/L (20-31); CHLORIDE LEVEL 98.0 MMOL/L (98-107); CREATININE FOR GFR 1.24 MG/DL (0.70-1.30); GLOMERULAR FILTRATION RATE 66.6 (>49); POTASSIUM SERUM 3.4 MMOL/L (3.5-5.1); SODIUM LEVEL 140.0 MMOL/L (136-145)
[2024-11-29 06:57] VITALS: BP 128/72; TEMP 97; O2SAT 98
[2024-11-29] MEDS: INSULIN LISPRO (NovoLOG) PER UNIT SC SCH ×3 (07:30→21:26)
[2024-11-29] MEDS: POTASSIUM CHLORIDE 10MEQ SR TABLET PO ONE (08:42)
[2024-11-29] MEDS: HumuLIN N INSULIN (NovoLIN N) PER UNIT SC SCH (09:57)
[2024-11-29 12:00] VITALS: BP 109/74; TEMP 97.9; O2SAT 95
[2024-11-29] MEDS: INSULIN LISPRO (NovoLOG) PER UNIT SC ONE (17:23)
[2024-11-29 20:44] VITALS: BP 114/74; TEMP 97.2; O2SAT 91
[2024-11-29] MEDS: INSULIN GLARGINE-YFGN 1 UNITS/0.01 ML SC SCH (21:25)
[2024-11-30 00:22] VITALS: BP 123/85
[2024-11-30 03:58] VITALS: BP 129/87; TEMP 97; O2SAT 97
[2024-11-30] MEDS: predniSONE 10 MG TAB PO SCH (08:29)
[2024-11-30] MEDS: HumuLIN N INSULIN (NovoLIN N) PER UNIT SC SCH (08:31)
[2024-11-30 08:55] LABS: PLATELET COUNT, AUTOMATED 190 10^3/uL (150-450)
[2024-11-30] MEDS ORDERED: HumuLIN N INSULIN (NovoLIN N) PER UNIT SC SCH (09:00)
[2024-11-30 09:18] LABS: ALT/SGPT 46.0 U/L (7.0-40); AST/SGOT 23.0 U/L (<34); CALCIUM LEVEL 9.7 MG/DL (8.3-10.6); CARBON DIOXIDE LEVEL 35.0 MMOL/L (20-31); CHLORIDE LEVEL 94.0 MMOL/L (98-107); CREATININE FOR GFR 1.38 MG/DL (0.70-1.30); GLOMERULAR FILTRATION RATE 58.5 (>49); POTASSIUM SERUM 4.1 MMOL/L (3.5-5.1); SODIUM LEVEL 137.0 MMOL/L (136-145)
[2024-11-30] MEDS ORDERED: NS (Normal Saline) 0.9% 1,000 ML IV SCH (09:35)
[2024-11-30] MEDS: ACETAMINOPHEN 325 MG TAB PO PRN (09:54)
[2024-11-30 11:41] VITALS: BP 132/91; TEMP 97.2; O2SAT 98
[2024-11-30] MEDS: LanTUS (INSULIN GLARGINE INJ) 1 UNITS/0.01 ML SC SCH (21:17)
[2024-11-30 21:20] VITALS: BP 117/73; TEMP 97.3; O2SAT 96
[2024-12-01 06:12] LABS: PLATELET COUNT, AUTOMATED 199 10^3/uL (150-450)
[2024-12-01 06:48] LABS: ALT/SGPT 60.0 U/L (7.0-40); AST/SGOT 34.0 U/L (<34); CALCIUM LEVEL 9.3 MG/DL (8.3-10.6); CARBON DIOXIDE LEVEL 32.0 MMOL/L (20-31); CHLORIDE LEVEL 95.0 MMOL/L (98-107); CREATININE FOR GFR 1.3 MG/DL (0.70-1.30); GLOMERULAR FILTRATION RATE 62.9 (>49); POTASSIUM SERUM 3.7 MMOL/L (3.5-5.1); SODIUM LEVEL 136.0 MMOL/L (136-145)
[2024-12-01 06:54] VITALS: BP 126/85; TEMP 97; O2SAT 98
[2024-12-01] MEDS ORDERED: HumuLIN N INSULIN (NovoLIN N) PER UNIT SC SCH ×2 (09:00→21:00)
[2024-12-01] MEDS: HumuLIN N INSULIN (NovoLIN N) PER UNIT SC SCH (09:26)
[2024-12-01 09:28] VITALS: BP 95/61
[2024-12-01 11:34] VITALS: BP 132/76; TEMP 97.2; O2SAT 98
[2024-12-01] MEDS: INSULIN LISPRO (NovoLOG) PER UNIT SC SCH (12:47)
[2024-12-01 20:55] VITALS: BP 139/83; TEMP 97; O2SAT 97
[2024-12-01] MEDS: LanTUS (INSULIN GLARGINE INJ) 1 UNITS/0.01 ML SC SCH (21:42)
[2024-12-02 04:29] VITALS: BP 130/82; TEMP 97; O2SAT 98
[2024-12-02 06:22] LABS: PLATELET COUNT, AUTOMATED 220 10^3/uL (150-450)
[2024-12-02 06:52] LABS: ALT/SGPT 88.0 U/L (7.0-40); AST/SGOT 46.0 U/L (<34); CALCIUM LEVEL 9.5 MG/DL (8.3-10.6); CARBON DIOXIDE LEVEL 30.0 MMOL/L (20-31); CHLORIDE LEVEL 96.0 MMOL/L (98-107); CREATININE FOR GFR 1.27 MG/DL (0.70-1.30); GLOMERULAR FILTRATION RATE 64.7 (>49); POTASSIUM SERUM 3.8 MMOL/L (3.5-5.1); SODIUM LEVEL 138.0 MMOL/L (136-145)
[2024-12-02] MEDS: INSULIN LISPRO (NovoLOG) PER UNIT SC SCH (09:17)
[2024-12-02] MEDS: HumuLIN N INSULIN (NovoLIN N) PER UNIT SC SCH (09:17)
[2024-12-02 11:54] VITALS: BP 125/84; TEMP 97.2; O2SAT 100
[2024-12-02 20:13] VITALS: BP 117/85; TEMP 97.2; O2SAT 96
[2024-12-03 04:15] VITALS: BP 136/82; TEMP 96.8; O2SAT 99
[2024-12-03 06:54] LABS: PLATELET COUNT, AUTOMATED 222 10^3/uL (150-450)
[2024-12-03 07:17] LABS: ALT/SGPT 98.0 U/L (7.0-40); AST/SGOT 44.0 U/L (<34); CALCIUM LEVEL 9.7 MG/DL (8.3-10.6); CARBON DIOXIDE LEVEL 31.0 MMOL/L (20-31); CHLORIDE LEVEL 97.0 MMOL/L (98-107); CREATININE FOR GFR 1.32 MG/DL (0.70-1.30); GLOMERULAR FILTRATION RATE 61.8 (>49); POTASSIUM SERUM 3.7 MMOL/L (3.5-5.1); SODIUM LEVEL 139.0 MMOL/L (136-145)
[2024-12-03 12:05] VITALS: BP 134/75; TEMP 97; O2SAT 94
[2024-12-03 19:56] VITALS: BP 124/70; TEMP 97.2; O2SAT 96
[2024-12-04 04:04] VITALS: BP 132/80; TEMP 97.5; O2SAT 98
[2024-12-04 06:28] LABS: PLATELET COUNT, AUTOMATED 221 10^3/uL (150-450)
[2024-12-04 07:24] LABS: ALT/SGPT 94.0 U/L (7.0-40); AST/SGOT 41.0 U/L (<34); CALCIUM LEVEL 9.3 MG/DL (8.3-10.6); CARBON DIOXIDE LEVEL 32.0 MMOL/L (20-31); CHLORIDE LEVEL 96.0 MMOL/L (98-107); CREATININE FOR GFR 1.4 MG/DL (0.70-1.30); GLOMERULAR FILTRATION RATE 57.5 (>49); POTASSIUM SERUM 3.6 MMOL/L (3.5-5.1); SODIUM LEVEL 138.0 MMOL/L (136-145)
[2024-12-04 07:51] VITALS: BP 132/80
[2024-12-04 11:29] VITALS: BP 125/76; TEMP 97.2; O2SAT 97
[2024-12-04] MEDS ORDERED: METF-838 PO (12:22)
[2024-12-04] MEDS ORDERED: INSU100I14 SQ (12:22)
[2024-12-04] MEDS ORDERED: PRED5TA PO (12:22)
[2024-12-04] MEDS ORDERED: PEN-61 SC (12:22)
[2024-12-04] MEDS ORDERED: HUMA50IN4 SC (12:22)
[2024-12-04] MEDS ORDERED: NOVOINJ3 SC (13:09)
[2024-12-07] MEDS ORDERED: predniSONE 10 MG TAB PO SCH (09:00)
[2024-12-14] MEDS ORDERED: predniSONE 10 MG TAB PO SCH (09:00)
[2024-12-28] MEDS ORDERED: PILL CUTTER 1 EACH XX PRN (06:00)
== END 2024-12-04 15:08 | disposition home or self-care (01) | DRG 638 ==
LOC: M ED 13:03 → EEVIPCON 17:24 → M ED INP 17:24 → M ICU 19:01 → M MSPAV 11-28 14:39
PROVIDERS: ADMIT Internal Medicine Pulmonary Disease; ATTEND Internal Medicine
PROC: B246ZZZ Ultrasonography of Right and Left Heart (ICD-10-PCS; principal; 2024-11-28)
DX: E11.00 Type 2 diabetes mellitus with hyperosmolarity without nonketotic hyperglycemic-hyperosmolar coma (NKHHC) (principal); N17.9 Acute kidney failure, unspecified; Z68.42 Body mass index [BMI] 45.0-49.9, adult; M10.9 Gout, unspecified; N18.30 Chronic kidney disease, stage 3 unspecified; I12.9 Hypertensive chronic kidney disease with stage 1 through stage 4 chronic kidney disease, or unspecified chronic kidney disease; N40.0 Benign prostatic hyperplasia without lower urinary tract symptoms; F32.A Depression, unspecified; E11.65 Type 2 diabetes mellitus with hyperglycemia; M31.6 Other giant cell arteritis; R00.2 Palpitations; R42 Dizziness and giddiness; L40.9 Psoriasis, unspecified; K21.9 Gastro-esophageal reflux disease without esophagitis; E11.22 Type 2 diabetes mellitus with diabetic chronic kidney disease; E86.0 Dehydration; Z86.16 Personal history of COVID-19; Z86.73 Personal history of transient ischemic attack (TIA), and cerebral infarction without residual deficits; E66.813 Obesity, class 3; Z79.82 Long term (current) use of aspirin; Z79.4 Long term (current) use of insulin; Z87.891 Personal history of nicotine dependence; Z79.899 Other long term (current) drug therapy; Z88.5 Allergy status to narcotic agent; Z79.52 Long term (current) use of systemic steroids; Z95.5 Presence of coronary angioplasty implant and graft

== ENCOUNTER 2024-12-20 15:56 | Emergency (ER) | payer OTHER ==
[~2024-12-20] VITALS: Ht 172.7 cm; Wt 138.6 kg
[~2024-12-20 15:56] MED LIST changes: -EZET10TA21 PO; +EZET10TA57 PO; +HUMA50IN4 SC; +INSU100I14 SQ; +JARD1TAB PO; +NOVOINJ3 SC; +PEN-61 SC; +PRED20TA PO; +PRED5TA PO
[2024-12-20 16:59] LABS: BASO # 0.0 10^3/uL (0.0-0.2); BASO % 0.2 % (0.0-1.0); EOS # 0.1 10^3/uL (0.0-0.5); EOS % 0.7 % (0.0-3.0); LYMPH # 2.1 10^3/uL (1.5-5.0); LYMPH % 17.5 % (24.0-44.0); MONO # 0.8 10^3/uL (0.0-0.8); MONO % 6.4 % (2.0-8.0); NEUTROPHILS # 9.0 10^3/uL (1.5-8.5); NEUTROPHILS % 74.6 % (36.0-66.0); PLATELET COUNT, AUTOMATED 201 10^3/uL (150-450)
[2024-12-20 17:31] LABS: ALT/SGPT 42.0 U/L (7.0-40); AST/SGOT 21.0 U/L (<34); CALCIUM LEVEL 9.9 MG/DL (8.3-10.6); CARBON DIOXIDE LEVEL 31.0 MMOL/L (20-31); CHLORIDE LEVEL 99.0 MMOL/L (98-107); CREATININE FOR GFR 1.63 MG/DL (0.70-1.30); GLOMERULAR FILTRATION RATE 47.9 (>49); MAGNESIUM LEVEL 1.8 MG/DL (1.8-2.4); POTASSIUM SERUM 3.7 MMOL/L (3.5-5.1); SODIUM LEVEL 139.0 MMOL/L (136-145)
[2024-12-20 17:32] LABS: OSMOLALITY SERUM 301.0 MOSM/KG (275-295)
[2024-12-20] MEDS: NS 500 ML IV ONE (19:34)
[2024-12-20 20:06] LABS: APPEARANCE, URINE CLEAR (CLEAR); BACTERIA, URINE AUTO NEGATIVE (NEGATIVE); BILIRUBIN, URINE AUTO NEGATIVE (NEGATIVE); BLOOD, URINE BLOOD NEGATIVE (NEGATIVE); GLUCOSE, URINE (UA) AUTO 3+ mg/dL (NEGATIVE); KETONE, URINE AUTO NEGATIVE (NEGATIVE); LEUKOCYTE ESTERASE, URINE AUTO NEGATIVE (NEGATIVE); NITRITE, URINE AUTO NEGATIVE (NEGATIVE); PROTEIN, URINE AUTO NEGATIVE (NEGATIVE); RBC, URINE AUTO 0 /HPF (0-3); SPECIFIC GRAVITY URINE AUTO 1.020 (1.002-1.035); SQUAMOUS EPITHELIAL CELL UR AU 0 /HPF (0-6); UROBILINOGEN, URINE AUTO 0.2 mg/dL (0.0-2.0); WBC, URINE AUTO 1 /HPF (0-3)
[2024-12-20 21:00] VITALS: BP 139/81; TEMP 97.7; O2SAT 97
[2024-12-20] MEDS ORDERED: TRIA1CR80 TOP (21:06)
== END 2024-12-20 21:05 | disposition home or self-care (01) ==
LOC: M ED 15:56
DX: R29.6 Repeated falls (principal); Z88.5 Allergy status to narcotic agent; Z79.51 Long term (current) use of inhaled steroids; Z79.1 Long term (current) use of non-steroidal anti-inflammatories (NSAID); Z79.4 Long term (current) use of insulin; Z79.84 Long term (current) use of oral hypoglycemic drugs; Z79.899 Other long term (current) drug therapy

== ENCOUNTER → 2025-01-02 | Outpatient (REF) | payer OTHER ==
[~2025-01-02] MED LIST changes: +TRIA1CR80 TOP
[2025-01-02 14:04] LABS: APPEARANCE, URINE CLEAR (CLEAR); BACTERIA, URINE AUTO NEGATIVE (NEGATIVE); BILIRUBIN, URINE AUTO NEGATIVE (NEGATIVE); BLOOD, URINE BLOOD NEGATIVE (NEGATIVE); GLUCOSE, URINE (UA) AUTO 3+ mg/dL (NEGATIVE); KETONE, URINE AUTO NEGATIVE (NEGATIVE); LEUKOCYTE ESTERASE, URINE AUTO NEGATIVE (NEGATIVE); MUCUS, URINE SMALL (NEGATIVE); NITRITE, URINE AUTO NEGATIVE (NEGATIVE); PROTEIN, URINE AUTO NEGATIVE (NEGATIVE); RBC, URINE AUTO 0 /HPF (0-3); SPECIFIC GRAVITY URINE AUTO 1.027 (1.002-1.035); SQUAMOUS EPITHELIAL CELL UR AU 1 /HPF (0-6); UROBILINOGEN, URINE AUTO 0.2 mg/dL (0.0-2.0); WBC, URINE AUTO 5 /HPF (0-3)
== END ==
LOC: M SMT 13:14
PROVIDERS: ATTEND Nurse Practitioner Family
DX: R31.9 Hematuria, unspecified (principal)

== ENCOUNTER → 2025-01-21 | Outpatient (CLI) | payer OTHER | LOC: M PLALAB 14:58 | PROVIDERS: ATTEND Student in an Organized Health Care Education/Training Program | DX: Z00.00 Encounter for general adult medical examination without abnormal findings (principal); Z12.5 Encounter for screening for malignant neoplasm of prostate | CPT/HCPCS: 36415; G0103 ==